=== PATIENT | female | born 1930 | race Caucasian/White ===

== ENCOUNTER 2018-03-08 20:05 | Inpatient (IN) ==
[2018-03-08] MEDS ORDERED: ALBUTEROL/IPRATROPIUM 3 ML NEB RESP TX STA (21:27)
[2018-03-08] MEDS ORDERED: SODIUM CHLORIDE 0.9% 500 ML IV STA (21:27)
[2018-03-08 21:57] LABS: Basophils # 0.1 10*3/uL (0.0-0.2); Basophils % 0.4 % (0.0-0.8); Eosinophils # 0.2 10*3/uL (0.0-0.87); Eosinophils % 1.5 % (0.00-10.9); Hemoglobin 10.9 GM/DL (12.0-16.0); Immature Granulocytes % 0.8 %; Immature Granulocytes Absolute 0.11 #; Lymphocytes # 1.3 10*3/uL (1.4-4.0); Lymphocytes % 9.8 % (21.3-54.2); Mean Corpuscular HGB Conc 32.1 GM/DL (32-36); Mean Corpuscular Hemoglobin 29 PG (27-34); Mean Corpuscular Volume 91.2 FL (87-102); Mean Platelet Volume 11.8 FL (9.6-12.0); Monocytes # 1.1 10*3/uL (0.11-0.8); Monocytes % 8.3 % (1.7-12.7); Neutrophils # 10.6 10*3/uL (1.4-7.4); Neutrophils % 79.2 % (38.7-73.9); Platelet Count 182 T/CUMM (130-400); Red Blood Count 3.73 MC/CUMM (3.8-5.5); White Blood Count 13.4 T/CUMM (4-12)
[2018-03-08 22:10] LABS: PT Patient Result 10.7 SECS; Partial Thromboplastin Time 27.1 SECS (0-40)
[2018-03-08] MEDS ORDERED: cefTRIAXone 1,000 MG in SODIUM CHLORIDE 0.9% 100 ML IV STA (22:16)
[2018-03-08 22:27] LABS: Alanine Aminotransferase 57 U/L (13-56); Albumin 2.9 G/DL (3.4-5.0); Alkaline Phosphatase 139 U/L (45-117); Amylase 268 U/L (25-115); Aspartate Amino Transferase 42 U/L (0-37); Blood Urea Nitrogen 11 MG/DL (7-18); Calcium 9.1 MG/DL (8.5-10.1); Glucose 110 MG/DL (74-106); Osmolality,Calculated 274.7 MOS/KG (273-304); Potassium 3.8 MMOL/L (3.5-5.1); Sodium 138 MMOL/L (136-145); Total Protein 6.4 G/DL (6.4-8.3); Troponin I Only 0.015 NG/ML (0.00-0.045)
[2018-03-08] MEDS ORDERED: cefTRIAXone 1,000 MG VIAL ONE (22:47)
[2018-03-08 23:21] LABS: Apearance,Urine Clear (Clear); Urine Color Yellow (Yellow); Urine Specific Gravity 1.005 (1.001-1.035)
[2018-03-08 23:22] LABS: Bilirubin,Urine Negative (Negative); Blood, Urine Moderate mg/dL (Negative); Glucose,Urine (UA) Negative (Negative); Ictotest,Urine Negative (Negative); Ketones,Urine Negative (Negative); Nitrite,Urine Negative (Negative); Protein,Urine Negative
[2018-03-08 23:23] LABS: Bacteria,Urine Rare /HPF (Few); RBC,Urine 50-100 /HPF (0-4); Squamous Epithelial Cell,Urine Few /HPF (0-10); Urine Urobilinogen 0.2 EU/DL (0.2-1.0); WBC,Urine 30-40 /HPF (0-6)
[2018-03-09] MEDS ORDERED: ONDANSETRON 4 MG/2 ML VIAL IV PRN (01:27)
[2018-03-09] MEDS ORDERED: traMADol 50 MG TABLET PO PRN (01:40)
[2018-03-09] MEDS ORDERED: AZITHROMYCIN 500 MG VIAL IV ONE (01:52)
[2018-03-09] MEDS: SODIUM CHLORIDE 0.9% 1,000 ML IV SCH ×3 (02:06→21:43)
[2018-03-09] MEDS: AZITHROMYCIN INJ 500 MG in SODIUM CHLORIDE 0.9% 250 ML IV SCH (02:59)
[2018-03-09] MEDS: methylPREDNISolone SOD SUC 40 MG/1 ML VIAL IV SCH ×3 (03:33→17:29)
[2018-03-09] MEDS: LEVOTHYROXINE 125 MCG TABLET PO SCH (05:31)
[2018-03-09 06:23] LABS: Basophils % 0.2 % (0.0-0.8); Eosinophils # 0.2 10*3/uL (0.0-0.87); Eosinophils % 1.7 % (0.00-10.9); Hematocrit 30.3 VOL% (35.7-47.0); Hemoglobin 10.1 GM/DL (12.0-16.0); Immature Granulocytes % 1.4 %; Immature Granulocytes Absolute 0.13 #; Lymphocytes # 1.6 10*3/uL (1.4-4.0); Lymphocytes % 17.1 % (21.3-54.2); Mean Corpuscular HGB Conc 33.3 GM/DL (32-36); Mean Corpuscular Hemoglobin 30 PG (27-34); Mean Corpuscular Volume 89.6 FL (87-102); Mean Platelet Volume 12.2 FL (9.6-12.0); Monocytes # 0.4 10*3/uL (0.11-0.8); Monocytes % 4.3 % (1.7-12.7); Neutrophils # 6.8 10*3/uL (1.4-7.4); Neutrophils % 75.3 % (38.7-73.9); Platelet Count 162 T/CUMM (130-400); Red Blood Count 3.38 MC/CUMM (3.8-5.5); White Blood Count 9.1 T/CUMM (4-12)
[2018-03-09 06:56] LABS: Alanine Aminotransferase 46 U/L (13-56); Albumin 2.6 G/DL (3.4-5.0); Alkaline Phosphatase 119 U/L (45-117); Aspartate Amino Transferase 24 U/L (0-37); Bilirubin,Total < 0.39 MG/DL (0.2-1.0); Blood Urea Nitrogen 11 MG/DL (7-18); Calcium 8.2 MG/DL (8.5-10.1); Glucose 103 MG/DL (74-106); Osmolality,Calculated 277.4 MOS/KG (273-304); Potassium 4.1 MMOL/L (3.5-5.1); Sodium 140 MMOL/L (136-145); Total Protein 5.1 G/DL (6.4-8.3)
[2018-03-09] MEDS: ARFORMOTEROL 15 MCG/2 ML NEB RESP TX SCH ×2 (07:17→20:26)
[2018-03-09] MEDS: ALBUTEROL/IPRATROPIUM 3 ML NEB RESP TX SCH ×3 (07:17→20:26)
[2018-03-09] MEDS: CETIRIZINE 10 MG TABLET PO SCH (08:46)
[2018-03-09] MEDS: SELENIUM 200 MCG TABLET PO SCH (08:46)
[2018-03-09] MEDS: METOCLOPRAMIDE 5 MG TABLET PO SCH ×3 (08:46→21:35)
[2018-03-09] MEDS: guaiFENesin 200 MG/10 ML UDCUP PO PRN ×2 (08:46→15:49)
[2018-03-09] MEDS: ASCORBIC ACID 500 MG TABLET PO SCH (08:46)
[2018-03-09] MEDS: CHOLECALCIFEROL 5,000 UNIT TABLET PO SCH ×2 (08:46→21:35)
[2018-03-09] MEDS: IRBESARTAN 150 MG TABLET PO SCH (08:46)
[2018-03-09] MEDS: MAGNESIUM OXIDE 400 MG TABLET PO SCH ×2 (08:47→21:35)
[2018-03-09] MEDS ORDERED: Saccharomyces Boulardii [Probiotic] 250 MG PO SCH (09:00)
[2018-03-09 09:43] LABS: Risk Ratio 3.7; VLDL CHOLESTEROL 18.8 MG/DL
[2018-03-09] MEDS: MONTELUKAST 10 MG TABLET PO SCH (19:35)
[2018-03-09] MEDS: SIMVASTATIN 40 MG TABLET PO SCH (21:35)
[2018-03-09] MEDS: URSODIOL 300 MG CAPSULE PO SCH (21:35)
[2018-03-09] MEDS ORDERED: cefTRIAXone 1,000 MG in SYRINGE 1 EACH IV SCH (22:00)
[2018-03-10] MEDS: ALBUTEROL/IPRATROPIUM 3 ML NEB RESP TX SCH ×4 (01:07→18:58)
[2018-03-10] MEDS: AZITHROMYCIN INJ 500 MG in SODIUM CHLORIDE 0.9% 250 ML IV SCH (02:56)
[2018-03-10] MEDS: methylPREDNISolone SOD SUC 40 MG/1 ML VIAL IV SCH ×3 (02:56→17:54)
[2018-03-10] MEDS: LEVOTHYROXINE 125 MCG TABLET PO SCH (05:13)
[2018-03-10 06:28] LABS: Hematocrit 28.1 VOL% (35.7-47.0); Immature Granulocytes % 1.4 %; Immature Granulocytes Absolute 0.07 #; Lymphocytes # 1.1 10*3/uL (1.4-4.0); Lymphocytes % 22.8 % (21.3-54.2); Mean Corpuscular Hemoglobin 30 PG (27-34); Mean Corpuscular Volume 92.4 FL (87-102); Mean Platelet Volume 11.9 FL (9.6-12.0); Monocytes # 0.3 10*3/uL (0.11-0.8); Monocytes % 5.2 % (1.7-12.7); Neutrophils # 3.4 10*3/uL (1.4-7.4); Neutrophils % 70.6 % (38.7-73.9); Platelet Count 158 T/CUMM (130-400); Red Blood Count 3.04 MC/CUMM (3.8-5.5); Red Cell Distribution Width 14.8 % (9.3-17.3); White Blood Count 4.8 T/CUMM (4-12)
[2018-03-10 07:08] LABS: Calcium 8.2 MG/DL (8.5-10.1); Osmolality,Calculated 284.1 MOS/KG (273-304); Potassium 4.3 MMOL/L (3.5-5.1)
[2018-03-10] MEDS: ARFORMOTEROL 15 MCG/2 ML NEB RESP TX SCH ×2 (07:32→18:58)
[2018-03-10] MEDS: SELENIUM 200 MCG TABLET PO SCH (08:38)
[2018-03-10] MEDS: METOCLOPRAMIDE 5 MG TABLET PO SCH ×3 (08:39→20:08)
[2018-03-10] MEDS: IRBESARTAN 150 MG TABLET PO SCH (08:39)
[2018-03-10] MEDS: CHOLECALCIFEROL 5,000 UNIT TABLET PO SCH ×2 (08:39→20:08)
[2018-03-10] MEDS: ASCORBIC ACID 500 MG TABLET PO SCH (08:40)
[2018-03-10] MEDS: MAGNESIUM OXIDE 400 MG TABLET PO SCH ×2 (08:40→20:09)
[2018-03-10] MEDS: CETIRIZINE 10 MG TABLET PO SCH (08:40)
[2018-03-10] MEDS: URSODIOL 300 MG CAPSULE PO SCH ×2 (08:40→20:08)
[2018-03-10] MEDS: ENOXAPARIN 40 MG/0.4 ML SYRINGE SUBCUT SCH (08:41)
[2018-03-10] MEDS: SODIUM CHLORIDE 0.9% 1,000 ML IV SCH ×3 (08:43→20:17)
[2018-03-10] MEDS: guaiFENesin 200 MG/10 ML UDCUP PO PRN ×2 (09:57→20:08)
[2018-03-10] MEDS ORDERED: AMINOPHYLLINE 125 MG in SODIUM CHLORIDE 0.9% 100 ML IV ONE (10:13)
[2018-03-10] MEDS: AMINOPHYLLINE 250 MG in SODIUM CHLORIDE 0.9% 240 ML IV SCH (15:00)
[2018-03-10] MEDS: MONTELUKAST 10 MG TABLET PO SCH ×2 (17:55→19:03)
[2018-03-10] MEDS: SIMVASTATIN 40 MG TABLET PO SCH (20:08)
[2018-03-10] MEDS: ACETAMINOPHEN 325 MG TABLET PO PRN (20:09)
[2018-03-10] MEDS: POLYETHYLENE GLYCOL POWDER 17 GM PACK PO SCH (20:10)
[2018-03-11] MEDS: ALBUTEROL/IPRATROPIUM 3 ML NEB RESP TX SCH ×4 (00:33→20:21)
[2018-03-11] MEDS: methylPREDNISolone SOD SUC 40 MG/1 ML VIAL IV SCH ×3 (02:09→18:00)
[2018-03-11] MEDS: LEVOTHYROXINE 125 MCG TABLET PO SCH (06:03)
[2018-03-11] MEDS: ARFORMOTEROL 15 MCG/2 ML NEB RESP TX SCH ×2 (06:56→20:22)
[2018-03-11] MEDS ORDERED: ETOMIDATE 20 MG/10 ML VIAL IV ONE (09:00)
[2018-03-11] MEDS ORDERED: PROPOFOL 200 MG/20 ML VIAL IV ONE (09:00)
[2018-03-11] MEDS ORDERED: LIDOCAINE 2% 5 ML VIAL ONE (09:00)
[2018-03-11] MEDS ORDERED: AZITHROMYCIN 250 MG TABLET PO SCH (09:00)
[2018-03-11] MEDS ORDERED: FUROSEMIDE 40 MG/4 ML VIAL IM ONE (09:06)
[2018-03-11 09:08] LABS: Hematocrit 26.9 VOL% (35.7-47.0); Immature Granulocytes % 7.3 %; Immature Granulocytes Absolute 0.54 #; Mean Corpuscular HGB Conc 33.5 GM/DL (32-36); Mean Corpuscular Hemoglobin 30 PG (27-34); Mean Corpuscular Volume 90.6 FL (87-102); Mean Platelet Volume 12.1 FL (9.6-12.0); Monocytes # 0.3 10*3/uL (0.11-0.8); Monocytes % 4.3 % (1.7-12.7); Neutrophils # 5.6 10*3/uL (1.4-7.4); Neutrophils % 75.4 % (38.7-73.9); Platelet Count 182 T/CUMM (130-400); Red Blood Count 2.97 MC/CUMM (3.8-5.5); White Blood Count 7.4 T/CUMM (4-12)
[2018-03-11 09:49] LABS: Anisocytosis 1+; Band Neutrophils 13 % (0-10); Burr Cells Few; Lymphocytes 18 % (20-55); Nucleated Red Blood Cells 1 (0-5); Poikilocytosis 1+; Segmented Neutrophils 68 % (50-85); Total Cells Counted 100
[2018-03-11] MEDS: guaiFENesin 200 MG/10 ML UDCUP PO PRN ×2 (10:05→20:39)
[2018-03-11 10:13] LABS: Platelet Estimate Normal
[2018-03-11] MEDS: SODIUM CHLORIDE 0.9% 1,000 ML IV SCH ×2 (10:28→16:44)
[2018-03-11] MEDS: METOCLOPRAMIDE 5 MG TABLET PO SCH ×3 (10:43→20:39)
[2018-03-11] MEDS: CETIRIZINE 10 MG TABLET PO SCH (10:43)
[2018-03-11] MEDS: URSODIOL 300 MG CAPSULE PO SCH ×2 (10:43→20:39)
[2018-03-11] MEDS: SELENIUM 200 MCG TABLET PO SCH (10:44)
[2018-03-11] MEDS: MAGNESIUM OXIDE 400 MG TABLET PO SCH ×2 (10:44→20:39)
[2018-03-11] MEDS: CHOLECALCIFEROL 5,000 UNIT TABLET PO SCH ×2 (10:44→20:39)
[2018-03-11] MEDS: IRBESARTAN 150 MG TABLET PO SCH (10:44)
[2018-03-11] MEDS: POLYETHYLENE GLYCOL POWDER 17 GM PACK PO SCH ×2 (10:45→20:40)
[2018-03-11] MEDS: ASCORBIC ACID 500 MG TABLET PO SCH (10:46)
[2018-03-11] MEDS: ENOXAPARIN 40 MG/0.4 ML SYRINGE SUBCUT SCH (10:49)
[2018-03-11] MEDS: AMINOPHYLLINE 250 MG in SODIUM CHLORIDE 0.9% 240 ML IV SCH ×2 (14:27→20:43)
[2018-03-11] MEDS: MONTELUKAST 10 MG TABLET PO SCH (18:00)
[2018-03-11] MEDS: SIMVASTATIN 40 MG TABLET PO SCH (20:40)
[2018-03-11] MEDS: ACETAMINOPHEN 325 MG TABLET PO PRN (20:42)
[2018-03-12] MEDS: ALBUTEROL/IPRATROPIUM 3 ML NEB RESP TX SCH ×3 (00:42→13:07)
[2018-03-12] MEDS: methylPREDNISolone SOD SUC 40 MG/1 ML VIAL IV SCH ×2 (01:12→09:49)
[2018-03-12] MEDS: LEVOTHYROXINE 125 MCG TABLET PO SCH (05:54)
[2018-03-12 06:36] LABS: Basophils % 0.2 % (0.0-0.8); Hematocrit 28.8 VOL% (35.7-47.0); Hemoglobin 9.5 GM/DL (12.0-16.0); Immature Granulocytes % 8.2 %; Immature Granulocytes Absolute 0.53 #; Lymphocytes # 0.9 10*3/uL (1.4-4.0); Lymphocytes % 13.1 % (21.3-54.2); Mean Corpuscular Hemoglobin 29 PG (27-34); Mean Corpuscular Volume 88.9 FL (87-102); Mean Platelet Volume 12.3 FL (9.6-12.0); Monocytes # 0.3 10*3/uL (0.11-0.8); Monocytes % 4.3 % (1.7-12.7); Neutrophils # 4.8 10*3/uL (1.4-7.4); Neutrophils % 74.2 % (38.7-73.9); Platelet Count 125 T/CUMM (130-400); Red Blood Count 3.24 MC/CUMM (3.8-5.5); Red Cell Distribution Width 14.6 % (9.3-17.3); White Blood Count 6.5 T/CUMM (4-12)
[2018-03-12 06:58] LABS: Band Neutrophils 5 % (0-10); Hypochromasia 1+; Lymphocytes 11 % (20-55); Nucleated Red Blood Cells 2 (0-5); Platelet Estimate Normal; Segmented Neutrophils 81 % (50-85); Total Cells Counted 100
[2018-03-12 06:59] LABS: Giant Platelets Few; Microcytosis Slight; Ovalocytes Slight
[2018-03-12 07:10] LABS: Calcium 8.8 MG/DL (8.5-10.1); Osmolality,Calculated 281.5 MOS/KG (273-304); Potassium 3.6 MMOL/L (3.5-5.1)
[2018-03-12] MEDS: ARFORMOTEROL 15 MCG/2 ML NEB RESP TX SCH (08:00)
[2018-03-12] MEDS: CHOLECALCIFEROL 5,000 UNIT TABLET PO SCH (08:51)
[2018-03-12] MEDS: URSODIOL 300 MG CAPSULE PO SCH (08:51)
[2018-03-12] MEDS: IRBESARTAN 150 MG TABLET PO SCH (08:51)
[2018-03-12] MEDS: POLYETHYLENE GLYCOL POWDER 17 GM PACK PO SCH (08:52)
[2018-03-12] MEDS: CETIRIZINE 10 MG TABLET PO SCH (08:52)
[2018-03-12] MEDS: METOCLOPRAMIDE 5 MG TABLET PO SCH ×2 (08:52→15:00)
[2018-03-12] MEDS: ASCORBIC ACID 500 MG TABLET PO SCH (08:52)
[2018-03-12] MEDS: SELENIUM 200 MCG TABLET PO SCH (08:52)
[2018-03-12] MEDS: MAGNESIUM OXIDE 400 MG TABLET PO SCH (08:52)
[2018-03-12 10:49] VITALS: BP 150/76
[2018-03-12] MEDS ORDERED: THEOPHYLLINE ER (24 HR) 200 MG CAPSULE PO SCH (11:48)
[2018-03-12] MEDS ORDERED: POTASSIUM CHLORIDE 10 MEQ TABLET PO SCH (12:00)
[2018-03-12] MEDS ORDERED: metOLazone 2.5 MG TABLET PO SCH (12:00)
[2018-03-12] MEDS ORDERED: CIPROFLOXACIN 250 MG TABLET PO SCH (14:00)
[2018-03-12 15:43] LABS: Apearance,Urine CLEAR (Clear); Bilirubin,Urine Negative (Negative); Blood, Urine Moderate mg/dL (Negative); Glucose,Urine (UA) 50 mg/dL (Negative); Ketones,Urine Negative (Negative); Mucus,Urine Occasional /LPF (Occasional); Nitrite,Urine Negative (Negative); Protein,Urine Negative; RBC,Urine 164 /HPF (0-4); Squamous Epithelial Cell,Urine Occasional /HPF (0-10); Urine Color Straw (Yellow); Urine Specific Gravity 1.009 (1.001-1.035); Urine Urobilinogen < 2.0 EU/DL (0.2-1.0); WBC,Urine 20 /HPF (0-6)
== END 2018-03-12 16:51 | disposition home or self-care (01) | DRG 438 ==
LOC: N.ED 20:05 → N.EDINP 03-09 01:27 → SUATTDRO 03-09 01:27 → N.5E 03-09 02:37
PROVIDERS: ADMIT Internal Medicine; ATTEND Internal Medicine Geriatric Medicine

== ENCOUNTER 2018-06-13 08:41 | Inpatient (IN) ==
[2018-06-13 10:14] LABS: Basophils % 0.2 % (0.0-0.8); Eosinophils # 0.2 10*3/uL (0.0-0.87); Eosinophils % 1.4 % (0.00-10.9); Hematocrit 30.9 VOL% (35.7-47.0); Hemoglobin 10.3 GM/DL (12.0-16.0); Immature Granulocytes Absolute 0.16 #; Lymphocytes % 12.9 % (21.3-54.2); Mean Corpuscular HGB Conc 33.3 GM/DL (32-36); Mean Corpuscular Hemoglobin 31 PG (27-34); Mean Corpuscular Volume 91.4 FL (87-102); Mean Platelet Volume 10.8 FL (9.6-12.0); Monocytes # 1.2 10*3/uL (0.11-0.8); Monocytes % 7.5 % (1.7-12.7); Platelet Count 187 T/CUMM (130-400); Red Blood Count 3.38 MC/CUMM (3.8-5.5); Red Cell Distribution Width 15.3 % (9.3-17.3); White Blood Count 15.6 T/CUMM (4-12)
[2018-06-13 10:26] LABS: Albumin 3.1 G/DL (3.4-5.0); Bilirubin,Total 0.4 MG/DL (0.2-1.0); Calcium 8.7 MG/DL (8.5-10.1); Osmolality,Calculated 270.5 MOS/KG (273-304); Potassium 3.2 MMOL/L (3.5-5.1); Total Protein 5.9 G/DL (6.4-8.3)
[2018-06-13 10:32] LABS: Apearance,Urine CLOUDY (Clear); Bacteria,Urine Many /HPF (Few); Bilirubin,Urine Negative (Negative); Blood, Urine Small mg/dL (Negative); Glucose,Urine (UA) Negative (Negative); Ketones,Urine Negative (Negative); Nitrite,Urine Negative (Negative); Protein,Urine 100 MG/DL; RBC,Urine 40 /HPF (0-4); Squamous Epithelial Cell,Urine Occasional /HPF (0-10); Urine Color Yellow (Yellow); Urine Specific Gravity 1.009 (1.001-1.035); Urine Urobilinogen < 2.0 EU/DL (0.2-1.0); WBC,Urine 1781 /HPF (0-6)
[2018-06-13] MEDS ORDERED: cefTRIAXone 1,000 MG in SODIUM CHLORIDE 0.9% 100 ML IV STA (10:33)
[2018-06-13 10:35] LABS: Lactic Acid 2.8 MMOL/L (0.4-2.0)
[2018-06-13] MEDS ORDERED: LACTATED RINGERS 1,000 ML IV ONE (10:35)
[2018-06-13] MEDS ORDERED: SODIUM CHLORIDE 0.9% 1,950 ML IV ONE (11:13)
[2018-06-13] MEDS ORDERED: traMADol 50 MG TABLET PO PRN (11:14)
[2018-06-13] MEDS ORDERED: guaiFENesin 200 MG/10 ML UDCUP PO PRN (11:14)
[2018-06-13] MEDS: LEVOFLOXACIN INJ 500 MG in PREMIX 1 EACH IV SCH (14:01)
[2018-06-13] MEDS: MEROPENEM 1,000 MG in SYRINGE 1 EACH IV SCH (14:01)
[2018-06-13] MEDS: ALBUTEROL 2.5 MG/3 ML NEB RESP TX SCH ×2 (14:23→19:21)
[2018-06-13] MEDS: POTASSIUM CHLORIDE 20 MEQ TABLET PO SCH (15:51)
[2018-06-13] MEDS: METOCLOPRAMIDE 5 MG TABLET PO SCH ×2 (15:51→20:15)
[2018-06-13] MEDS: ACETAMINOPHEN 325 MG TABLET PO PRN (16:50)
[2018-06-13] MEDS: MONTELUKAST 10 MG TABLET PO SCH (19:08)
[2018-06-13] MEDS: ARFORMOTEROL 15 MCG/2 ML NEB RESP TX SCH (19:21)
[2018-06-13] MEDS: SIMVASTATIN 40 MG TABLET PO SCH (20:15)
[2018-06-13] MEDS: CHOLECALCIFEROL 5,000 UNIT TABLET PO SCH (20:15)
[2018-06-13] MEDS: MAGNESIUM OXIDE 400 MG TABLET PO SCH (20:15)
[2018-06-13] MEDS: predniSONE 5 MG TABLET PO SCH (20:15)
[2018-06-13] MEDS: BUDESONIDE 0.25 MG/2 ML NEB RESP TX SCH (21:00)
[2018-06-13] MEDS: IPRATROPIUM 500 MCG/2.5 ML NEB RESP TX SCH (21:00)
[2018-06-14] MEDS: MEROPENEM 1,000 MG in SYRINGE 1 EACH IV SCH ×2 (00:48→13:13)
[2018-06-14 07:16] LABS: Calcium 8.6 MG/DL (8.5-10.1); Potassium 3.7 MMOL/L (3.5-5.1)
[2018-06-14 07:26] LABS: Basophils % 0.1 % (0.0-0.8); Eosinophils % 0.2 % (0.00-10.9); Hematocrit 27.6 VOL% (35.7-47.0); Hemoglobin 9.2 GM/DL (12.0-16.0); Immature Granulocytes % 0.9 %; Immature Granulocytes Absolute 0.08 #; Lymphocytes # 1.9 10*3/uL (1.4-4.0); Mean Corpuscular HGB Conc 33.3 GM/DL (32-36); Mean Corpuscular Hemoglobin 30 PG (27-34); Mean Corpuscular Volume 90.5 FL (87-102); Mean Platelet Volume 10.8 FL (9.6-12.0); Monocytes # 0.5 10*3/uL (0.11-0.8); Monocytes % 5.3 % (1.7-12.7); Neutrophils # 6.2 10*3/uL (1.4-7.4); Neutrophils % 71.5 % (38.7-73.9); Platelet Count 165 T/CUMM (130-400); Red Blood Count 3.05 MC/CUMM (3.8-5.5); Red Cell Distribution Width 15.1 % (9.3-17.3); White Blood Count 8.7 T/CUMM (4-12)
[2018-06-14 07:38] LABS: Albumin 2.5 G/DL (3.4-5.0); Bilirubin,Total 0.5 MG/DL (0.2-1.0); Calcium 8.6 MG/DL (8.5-10.1); Potassium 3.7 MMOL/L (3.5-5.1); Total Protein 5.8 G/DL (6.4-8.3)
[2018-06-14] MEDS: ARFORMOTEROL 15 MCG/2 ML NEB RESP TX SCH ×2 (07:46→19:22)
[2018-06-14] MEDS: ALBUTEROL 2.5 MG/3 ML NEB RESP TX SCH ×3 (07:47→19:22)
[2018-06-14] MEDS: IPRATROPIUM 500 MCG/2.5 ML NEB RESP TX SCH ×2 (07:48→19:22)
[2018-06-14] MEDS: BUDESONIDE 0.25 MG/2 ML NEB RESP TX SCH ×2 (07:48→19:22)
[2018-06-14] MEDS: CETIRIZINE 10 MG TABLET PO SCH (08:24)
[2018-06-14] MEDS: PANTOPRAZOLE 40 MG TABLET PO SCH (08:24)
[2018-06-14] MEDS: POTASSIUM CHLORIDE 20 MEQ TABLET PO SCH (08:24)
[2018-06-14] MEDS: ASCORBIC ACID 500 MG TABLET PO SCH (08:24)
[2018-06-14] MEDS: LEVOTHYROXINE 125 MCG TABLET PO SCH (08:24)
[2018-06-14] MEDS: THEOPHYLLINE ER (24 HR) 200 MG CAPSULE PO SCH (08:25)
[2018-06-14] MEDS: METOCLOPRAMIDE 5 MG TABLET PO SCH ×3 (08:25→21:57)
[2018-06-14] MEDS: SELENIUM 200 MCG TABLET PO SCH (08:25)
[2018-06-14] MEDS: MAGNESIUM OXIDE 400 MG TABLET PO SCH ×2 (08:25→21:57)
[2018-06-14] MEDS: IRBESARTAN 150 MG TABLET PO SCH (08:25)
[2018-06-14] MEDS: CHOLECALCIFEROL 5,000 UNIT TABLET PO SCH ×2 (08:25→21:58)
[2018-06-14] MEDS: metOLazone 2.5 MG TABLET PO SCH (08:25)
[2018-06-14] MEDS ORDERED: Saccharomyces Boulardii [Probiotic] 250 MG PO SCH (09:00)
[2018-06-14] MEDS: SODIUM CHLORIDE 0.45% 1,000 ML IV SCH (12:59)
[2018-06-14] MEDS: LEVOFLOXACIN INJ 500 MG in PREMIX 1 EACH IV SCH (13:13)
[2018-06-14] MEDS: MONTELUKAST 10 MG TABLET PO SCH (18:48)
[2018-06-14] MEDS: ACETAMINOPHEN 325 MG TABLET PO PRN (21:57)
[2018-06-14] MEDS: SIMVASTATIN 40 MG TABLET PO SCH (21:57)
[2018-06-14] MEDS: predniSONE 5 MG TABLET PO SCH (21:57)
[2018-06-15] MEDS: MEROPENEM 1,000 MG in SYRINGE 1 EACH IV SCH ×2 (01:20→13:41)
[2018-06-15] MEDS: LEVOTHYROXINE 125 MCG TABLET PO SCH (06:42)
[2018-06-15 06:51] LABS: Basophils % 0.1 % (0.0-0.8); Eosinophils # 0.1 10*3/uL (0.0-0.87); Eosinophils % 0.8 % (0.00-10.9); Hematocrit 26.5 VOL% (35.7-47.0); Hemoglobin 8.7 GM/DL (12.0-16.0); Immature Granulocytes % 1.4 %; Lymphocytes # 1.7 10*3/uL (1.4-4.0); Lymphocytes % 23.2 % (21.3-54.2); Mean Corpuscular HGB Conc 32.8 GM/DL (32-36); Mean Corpuscular Hemoglobin 30 PG (27-34); Mean Corpuscular Volume 91.1 FL (87-102); Mean Platelet Volume 10.4 FL (9.6-12.0); Monocytes # 0.5 10*3/uL (0.11-0.8); Monocytes % 7.2 % (1.7-12.7); Neutrophils # 4.9 10*3/uL (1.4-7.4); Neutrophils % 67.3 % (38.7-73.9); Platelet Count 150 T/CUMM (130-400); Red Blood Count 2.91 MC/CUMM (3.8-5.5); White Blood Count 7.2 T/CUMM (4-12)
[2018-06-15 07:17] LABS: Albumin 2.3 G/DL (3.4-5.0); Bilirubin,Total 0.5 MG/DL (0.2-1.0); Osmolality,Calculated 274.1 MOS/KG (273-304); Potassium 4.4 MMOL/L (3.5-5.1); Total Protein 5.6 G/DL (6.4-8.3)
[2018-06-15] MEDS: ARFORMOTEROL 15 MCG/2 ML NEB RESP TX SCH ×2 (07:41→19:20)
[2018-06-15] MEDS: IPRATROPIUM 500 MCG/2.5 ML NEB RESP TX SCH ×2 (07:41→19:08)
[2018-06-15] MEDS: ALBUTEROL 2.5 MG/3 ML NEB RESP TX SCH ×3 (07:41→19:07)
[2018-06-15] MEDS: BUDESONIDE 0.25 MG/2 ML NEB RESP TX SCH ×2 (07:42→19:08)
[2018-06-15] MEDS: THEOPHYLLINE ER (24 HR) 200 MG CAPSULE PO SCH (09:00)
[2018-06-15] MEDS: SODIUM CHLORIDE 0.45% 1,000 ML IV SCH (09:56)
[2018-06-15] MEDS: ASCORBIC ACID 500 MG TABLET PO SCH (10:16)
[2018-06-15] MEDS: SELENIUM 200 MCG TABLET PO SCH (10:16)
[2018-06-15] MEDS: POTASSIUM CHLORIDE 20 MEQ TABLET PO SCH (10:17)
[2018-06-15] MEDS: CETIRIZINE 10 MG TABLET PO SCH (10:17)
[2018-06-15] MEDS: CHOLECALCIFEROL 5,000 UNIT TABLET PO SCH ×2 (10:18→20:37)
[2018-06-15] MEDS: MAGNESIUM OXIDE 400 MG TABLET PO SCH ×2 (10:18→20:37)
[2018-06-15] MEDS: PANTOPRAZOLE 40 MG TABLET PO SCH (10:18)
[2018-06-15] MEDS: METOCLOPRAMIDE 5 MG TABLET PO SCH ×3 (10:18→20:37)
[2018-06-15] MEDS: IRBESARTAN 150 MG TABLET PO SCH (11:24)
[2018-06-15] MEDS: metOLazone 2.5 MG TABLET PO SCH (11:24)
[2018-06-15] MEDS ORDERED: VANCOMYCIN INJ 1,000 MG in SODIUM CHLORIDE 0.9% 250 ML IV SCH (14:00)
[2018-06-15] MEDS ORDERED: SODIUM CHLORIDE 0.9% 250 ML IV ONE (15:03)
[2018-06-15] MEDS ORDERED: SODIUM PHOSPHATE ENEMA 133 ML BOTTLE RECTAL ONE (15:26)
[2018-06-15] MEDS: LEVOFLOXACIN INJ 500 MG in PREMIX 1 EACH IV SCH (15:41)
[2018-06-15] MEDS ORDERED: BISACODYL 5 MG TABLET PO ONE (17:19)
[2018-06-15] MEDS ORDERED: MAGNESIUM HYDROXIDE SUSP 30 ML UDCUP PO ONE (17:19)
[2018-06-15] MEDS: predniSONE 5 MG TABLET PO SCH (20:37)
[2018-06-15] MEDS: MONTELUKAST 10 MG TABLET PO SCH (20:37)
[2018-06-15] MEDS: SIMVASTATIN 40 MG TABLET PO SCH (20:37)
[2018-06-15] MEDS: ACETAMINOPHEN 325 MG TABLET PO PRN (21:36)
[2018-06-16] MEDS: MEROPENEM 1,000 MG in SYRINGE 1 EACH IV SCH (00:39)
[2018-06-16 06:28] LABS: Basophils % 0.2 % (0.0-0.8); Eosinophils # 0.2 10*3/uL (0.0-0.87); Eosinophils % 1.8 % (0.00-10.9); Hematocrit 26.9 VOL% (35.7-47.0); Hemoglobin 8.8 GM/DL (12.0-16.0); Immature Granulocytes % 1.1 %; Immature Granulocytes Absolute 0.09 #; Lymphocytes # 1.6 10*3/uL (1.4-4.0); Lymphocytes % 19.3 % (21.3-54.2); Mean Corpuscular HGB Conc 32.7 GM/DL (32-36); Mean Corpuscular Hemoglobin 30 PG (27-34); Mean Corpuscular Volume 92.1 FL (87-102); Mean Platelet Volume 10.3 FL (9.6-12.0); Monocytes # 0.9 10*3/uL (0.11-0.8); Neutrophils # 5.4 10*3/uL (1.4-7.4); Neutrophils % 66.6 % (38.7-73.9); Platelet Count 152 T/CUMM (130-400); Red Blood Count 2.92 MC/CUMM (3.8-5.5); Red Cell Distribution Width 15.1 % (9.3-17.3); White Blood Count 8.2 T/CUMM (4-12)
[2018-06-16] MEDS: LEVOTHYROXINE 125 MCG TABLET PO SCH (06:35)
[2018-06-16 06:58] LABS: Albumin 2.4 G/DL (3.4-5.0); Bilirubin,Total 0.5 MG/DL (0.2-1.0); Calcium 8.7 MG/DL (8.5-10.1); Osmolality,Calculated 274.8 MOS/KG (273-304); Potassium 4.7 MMOL/L (3.5-5.1); Total Protein 5.6 G/DL (6.4-8.3)
[2018-06-16] MEDS: ALBUTEROL 2.5 MG/3 ML NEB RESP TX SCH ×3 (07:26→19:07)
[2018-06-16] MEDS: BUDESONIDE 0.25 MG/2 ML NEB RESP TX SCH ×2 (07:27→19:07)
[2018-06-16] MEDS: ARFORMOTEROL 15 MCG/2 ML NEB RESP TX SCH ×2 (07:27→19:07)
[2018-06-16] MEDS: IPRATROPIUM 500 MCG/2.5 ML NEB RESP TX SCH ×2 (07:27→19:07)
[2018-06-16] MEDS: SODIUM CHLORIDE 0.45% 1,000 ML IV SCH (07:57)
[2018-06-16] MEDS: THEOPHYLLINE ER (24 HR) 200 MG CAPSULE PO SCH (08:00)
[2018-06-16] MEDS: CETIRIZINE 10 MG TABLET PO SCH (09:04)
[2018-06-16] MEDS: MAGNESIUM OXIDE 400 MG TABLET PO SCH ×2 (09:05→20:35)
[2018-06-16] MEDS: SELENIUM 200 MCG TABLET PO SCH (09:05)
[2018-06-16] MEDS: PANTOPRAZOLE 40 MG TABLET PO SCH (09:05)
[2018-06-16] MEDS: POTASSIUM CHLORIDE 20 MEQ TABLET PO SCH (09:05)
[2018-06-16] MEDS: CHOLECALCIFEROL 5,000 UNIT TABLET PO SCH ×2 (09:05→20:36)
[2018-06-16] MEDS: ASCORBIC ACID 500 MG TABLET PO SCH (09:05)
[2018-06-16] MEDS: METOCLOPRAMIDE 5 MG TABLET PO SCH ×3 (09:05→20:35)
[2018-06-16] MEDS: LINEZOLID INJ 600 MG in PREMIX 1 EACH IV SCH ×2 (11:57→22:00)
[2018-06-16] MEDS: SIMVASTATIN 40 MG TABLET PO SCH (20:35)
[2018-06-16] MEDS: MONTELUKAST 10 MG TABLET PO SCH (20:36)
[2018-06-16] MEDS: predniSONE 5 MG TABLET PO SCH (20:36)
[2018-06-16] MEDS: ACETAMINOPHEN 325 MG TABLET PO PRN (20:39)
[2018-06-17] MEDS: LEVOTHYROXINE 125 MCG TABLET PO SCH (06:17)
[2018-06-17 06:52] LABS: Basophils % 0.2 % (0.0-0.8); Eosinophils # 0.1 10*3/uL (0.0-0.87); Eosinophils % 1.2 % (0.00-10.9); Hematocrit 26.3 VOL% (35.7-47.0); Hemoglobin 8.6 GM/DL (12.0-16.0); Immature Granulocytes % 1.7 %; Immature Granulocytes Absolute 0.14 #; Lymphocytes # 2.3 10*3/uL (1.4-4.0); Lymphocytes % 27.1 % (21.3-54.2); Mean Corpuscular HGB Conc 32.7 GM/DL (32-36); Mean Corpuscular Hemoglobin 30 PG (27-34); Mean Corpuscular Volume 90.1 FL (87-102); Mean Platelet Volume 10.2 FL (9.6-12.0); Monocytes # 0.6 10*3/uL (0.11-0.8); Monocytes % 6.9 % (1.7-12.7); Neutrophils # 5.3 10*3/uL (1.4-7.4); Neutrophils % 62.9 % (38.7-73.9); Platelet Count 167 T/CUMM (130-400); Red Blood Count 2.92 MC/CUMM (3.8-5.5); White Blood Count 8.5 T/CUMM (4-12)
[2018-06-17 07:14] LABS: Albumin 2.5 G/DL (3.4-5.0); Bilirubin,Total 0.6 MG/DL (0.2-1.0); Calcium 8.7 MG/DL (8.5-10.1); Potassium 4.8 MMOL/L (3.5-5.1); Total Protein 5.6 G/DL (6.4-8.3)
[2018-06-17] MEDS: BUDESONIDE 0.25 MG/2 ML NEB RESP TX SCH ×2 (07:45→19:12)
[2018-06-17] MEDS: ARFORMOTEROL 15 MCG/2 ML NEB RESP TX SCH ×2 (07:45→19:12)
[2018-06-17] MEDS: IPRATROPIUM 500 MCG/2.5 ML NEB RESP TX SCH ×2 (07:45→19:12)
[2018-06-17] MEDS: ALBUTEROL 2.5 MG/3 ML NEB RESP TX SCH ×3 (07:46→19:12)
[2018-06-17] MEDS: CHOLECALCIFEROL 5,000 UNIT TABLET PO SCH ×2 (10:05→22:02)
[2018-06-17] MEDS: POTASSIUM CHLORIDE 20 MEQ TABLET PO SCH (10:05)
[2018-06-17] MEDS: SELENIUM 200 MCG TABLET PO SCH (10:05)
[2018-06-17] MEDS: THEOPHYLLINE ER (24 HR) 200 MG CAPSULE PO SCH (10:05)
[2018-06-17] MEDS: METOCLOPRAMIDE 5 MG TABLET PO SCH ×3 (10:05→22:02)
[2018-06-17] MEDS: PANTOPRAZOLE 40 MG TABLET PO SCH (10:06)
[2018-06-17] MEDS: CETIRIZINE 10 MG TABLET PO SCH (10:06)
[2018-06-17] MEDS: LINEZOLID INJ 600 MG in PREMIX 1 EACH IV SCH ×2 (10:06→21:59)
[2018-06-17] MEDS: MAGNESIUM OXIDE 400 MG TABLET PO SCH ×3 (10:06→22:02)
[2018-06-17] MEDS: ASCORBIC ACID 500 MG TABLET PO SCH (10:06)
[2018-06-17] MEDS: SODIUM CHLORIDE 0.45% 1,000 ML IV SCH (16:18)
[2018-06-17] MEDS: MONTELUKAST 10 MG TABLET PO SCH (18:48)
[2018-06-17] MEDS: SIMVASTATIN 40 MG TABLET PO SCH (22:02)
[2018-06-17] MEDS: predniSONE 5 MG TABLET PO SCH (22:02)
[2018-06-17] MEDS: ACETAMINOPHEN 325 MG TABLET PO PRN (22:06)
[2018-06-18] MEDS ORDERED: LEVOTHYROXINE 125 MCG TABLET PO SCH (06:00)
[2018-06-18 06:39] LABS: Basophils % 0.1 % (0.0-0.8); Eosinophils # 0.1 10*3/uL (0.0-0.87); Hematocrit 27.6 VOL% (35.7-47.0); Hemoglobin 9.1 GM/DL (12.0-16.0); Immature Granulocytes % 1.8 %; Immature Granulocytes Absolute 0.18 #; Lymphocytes # 2.5 10*3/uL (1.4-4.0); Mean Corpuscular Hemoglobin 30 PG (27-34); Mean Corpuscular Volume 89.9 FL (87-102); Mean Platelet Volume 10.2 FL (9.6-12.0); Monocytes # 0.8 10*3/uL (0.11-0.8); Neutrophils # 6.3 10*3/uL (1.4-7.4); Neutrophils % 64.1 % (38.7-73.9); Platelet Count 170 T/CUMM (130-400); Red Blood Count 3.07 MC/CUMM (3.8-5.5); Red Cell Distribution Width 14.9 % (9.3-17.3); White Blood Count 9.9 T/CUMM (4-12)
[2018-06-18 07:11] LABS: Calcium 9.2 MG/DL (8.5-10.1); Osmolality,Calculated 271.1 MOS/KG (273-304); Potassium 4.7 MMOL/L (3.5-5.1)
[2018-06-18 07:14] LABS: Albumin 2.7 G/DL (3.4-5.0); Bilirubin,Total 0.6 MG/DL (0.2-1.0); Calcium 8.8 MG/DL (8.5-10.1); Osmolality,Calculated 267.2 MOS/KG (273-304); Potassium 4.6 MMOL/L (3.5-5.1); Total Protein 5.7 G/DL (6.4-8.3)
[2018-06-18] MEDS: ALBUTEROL 2.5 MG/3 ML NEB RESP TX SCH ×3 (08:05→19:43)
[2018-06-18] MEDS: IPRATROPIUM 500 MCG/2.5 ML NEB RESP TX SCH ×2 (08:06→19:43)
[2018-06-18] MEDS: ARFORMOTEROL 15 MCG/2 ML NEB RESP TX SCH ×2 (08:06→23:16)
[2018-06-18] MEDS: BUDESONIDE 0.25 MG/2 ML NEB RESP TX SCH ×2 (08:06→19:43)
[2018-06-18] MEDS: METOCLOPRAMIDE 5 MG TABLET PO SCH ×3 (10:34→21:07)
[2018-06-18] MEDS: ASCORBIC ACID 500 MG TABLET PO SCH (10:35)
[2018-06-18] MEDS: CHOLECALCIFEROL 5,000 UNIT TABLET PO SCH ×2 (10:35→21:07)
[2018-06-18] MEDS: PANTOPRAZOLE 40 MG TABLET PO SCH (10:35)
[2018-06-18] MEDS: POTASSIUM CHLORIDE 20 MEQ TABLET PO SCH (10:35)
[2018-06-18] MEDS: SELENIUM 200 MCG TABLET PO SCH (10:35)
[2018-06-18] MEDS: MAGNESIUM OXIDE 400 MG TABLET PO SCH ×3 (10:35→21:07)
[2018-06-18] MEDS: THEOPHYLLINE ER (24 HR) 200 MG CAPSULE PO SCH (10:35)
[2018-06-18] MEDS: LINEZOLID INJ 600 MG in PREMIX 1 EACH IV SCH (10:36)
[2018-06-18] MEDS: CETIRIZINE 10 MG TABLET PO SCH (10:36)
[2018-06-18] MEDS: SODIUM CHLORIDE 0.45% 1,000 ML IV SCH (14:42)
[2018-06-18] MEDS: MONTELUKAST 10 MG TABLET PO SCH (18:45)
[2018-06-18] MEDS: LINEZOLID 600 MG TABLET PO SCH (21:07)
[2018-06-18] MEDS: SIMVASTATIN 40 MG TABLET PO SCH (21:07)
[2018-06-18] MEDS: predniSONE 5 MG TABLET PO SCH (21:07)
[2018-06-18] MEDS: ACETAMINOPHEN 325 MG TABLET PO PRN (21:07)
[2018-06-19] MEDS: SODIUM CHLORIDE 0.45% 1,000 ML IV SCH (04:36)
[2018-06-19] MEDS ORDERED: LEVOTHYROXINE 100 MCG TABLET PO SCH (06:30)
[2018-06-19 07:07] LABS: Basophils % 0.2 % (0.0-0.8); Eosinophils # 0.1 10*3/uL (0.0-0.87); Eosinophils % 0.6 % (0.00-10.9); Hematocrit 28.1 VOL% (35.7-47.0); Hemoglobin 9.3 GM/DL (12.0-16.0); Lymphocytes # 3.2 10*3/uL (1.4-4.0); Lymphocytes % 32.9 % (21.3-54.2); Mean Corpuscular HGB Conc 33.1 GM/DL (32-36); Mean Corpuscular Hemoglobin 30 PG (27-34); Mean Corpuscular Volume 90.6 FL (87-102); Mean Platelet Volume 10.5 FL (9.6-12.0); Monocytes # 0.7 10*3/uL (0.11-0.8); Monocytes % 6.8 % (1.7-12.7); Neutrophils # 5.6 10*3/uL (1.4-7.4); Neutrophils % 57.5 % (38.7-73.9); Platelet Count 163 T/CUMM (130-400); White Blood Count 9.8 T/CUMM (4-12)
[2018-06-19] MEDS: ALBUTEROL 2.5 MG/3 ML NEB RESP TX SCH (07:09)
[2018-06-19] MEDS: IPRATROPIUM 500 MCG/2.5 ML NEB RESP TX SCH (07:09)
[2018-06-19] MEDS: ARFORMOTEROL 15 MCG/2 ML NEB RESP TX SCH (07:09)
[2018-06-19] MEDS: BUDESONIDE 0.25 MG/2 ML NEB RESP TX SCH (07:09)
[2018-06-19 07:44] LABS: Calcium 8.9 MG/DL (8.5-10.1); Osmolality,Calculated 271.1 MOS/KG (273-304); Potassium 4.6 MMOL/L (3.5-5.1)
[2018-06-19] MEDS: POTASSIUM CHLORIDE 20 MEQ TABLET PO SCH (09:39)
[2018-06-19] MEDS: MAGNESIUM OXIDE 400 MG TABLET PO SCH (09:39)
[2018-06-19] MEDS: ASCORBIC ACID 500 MG TABLET PO SCH (09:39)
[2018-06-19] MEDS: CHOLECALCIFEROL 5,000 UNIT TABLET PO SCH (09:39)
[2018-06-19] MEDS: LINEZOLID 600 MG TABLET PO SCH (09:39)
[2018-06-19] MEDS: SELENIUM 200 MCG TABLET PO SCH (09:39)
[2018-06-19] MEDS: CETIRIZINE 10 MG TABLET PO SCH (09:39)
[2018-06-19] MEDS: METOCLOPRAMIDE 5 MG TABLET PO SCH (09:40)
[2018-06-19] MEDS: PANTOPRAZOLE 40 MG TABLET PO SCH (09:40)
[2018-06-19] MEDS: THEOPHYLLINE ER (24 HR) 200 MG CAPSULE PO SCH (09:40)
[2018-06-19 14:26] VITALS: BP 128/58
== END 2018-06-19 15:50 | disposition home health service (06) | DRG 689 ==
LOC: N.ED 08:41 → SUATTDRO 11:27 → N.EDINP 11:42 → N.5E 12:39
PROVIDERS: ATTEND Internal Medicine

== ENCOUNTER 2018-07-22 20:04 | Inpatient (IN) ==
[2018-07-22 21:13] LABS: Basophils % 0.2 % (0.0-0.8); Eosinophils # 0.1 10*3/uL (0.0-0.87); Eosinophils % 0.8 % (0.00-10.9); Hematocrit 29.6 VOL% (35.7-47.0); Hemoglobin 9.7 GM/DL (12.0-16.0); Immature Granulocytes Absolute 0.09 #; Lymphocytes # 3.9 10*3/uL (1.4-4.0); Lymphocytes % 45.3 % (21.3-54.2); Mean Corpuscular HGB Conc 32.8 GM/DL (32-36); Mean Corpuscular Hemoglobin 30 PG (27-34); Mean Corpuscular Volume 91.6 FL (87-102); Mean Platelet Volume 10.6 FL (9.6-12.0); Monocytes # 0.9 10*3/uL (0.11-0.8); Monocytes % 9.9 % (1.7-12.7); NRBC # 0.02 10*3/uL; Neutrophils # 3.7 10*3/uL (1.4-7.4); Neutrophils % 42.8 % (38.7-73.9); Platelet Count 146 T/CUMM (130-400); Red Blood Count 3.23 MC/CUMM (3.8-5.5); Red Cell Distribution Width 17.4 % (9.3-17.3); White Blood Count 8.7 T/CUMM (4-12)
[2018-07-22 21:21] LABS: PT Patient Result 10.3 SECS; Partial Thromboplastin Time 26.2 SECS (0-40)
[2018-07-22 21:33] LABS: Albumin 3.5 G/DL (3.4-5.0); Bilirubin,Total 0.4 MG/DL (0.2-1.0); Osmolality,Calculated 260.9 MOS/KG (273-304); Potassium 4.3 MMOL/L (3.5-5.1); Total Protein 6.6 G/DL (6.4-8.3)
[2018-07-22] MEDS ORDERED: PANTOPRAZOLE 40 MG VIAL IV STA (21:38)
[2018-07-22] MEDS ORDERED: methylPREDNISolone SOD SUC 125 MG/2 ML VIAL IV STA (21:38)
[2018-07-22] MEDS ORDERED: ALBUTEROL/IPRATROPIUM 3 ML NEB RESP TX STA (21:38)
[2018-07-22] MEDS ORDERED: ONDANSETRON 4 MG/2 ML VIAL IV STA (21:38)
[2018-07-22] MEDS ORDERED: SODIUM CHLORIDE 0.9% 500 ML IV STA (21:38)
[2018-07-22] MEDS ORDERED: MAGNESIUM SULF RIDER 2 GM in PREMIX 1 EACH IV STA (21:39)
[2018-07-22 22:52] LABS: Lactic Acid 3.5 MMOL/L (0.4-2.0)
[2018-07-22] MEDS ORDERED: metroNIDAZOLE INJ 500 MG in PREMIX 1 EACH IV STA (22:56)
[2018-07-23 00:05] LABS: Apearance,Urine CLOUDY (Clear); Bilirubin,Urine Negative (Negative); Blood, Urine Small mg/dL (Negative); Glucose,Urine (UA) Negative (Negative); Ketones,Urine Negative (Negative); Nitrite,Urine Negative (Negative); Protein,Urine 30 MG/DL; RBC,Urine 11 /HPF (0-4); Urine Color Yellow (Yellow); Urine Specific Gravity 1.011 (1.001-1.035); Urine Urobilinogen < 2.0 EU/DL (0.2-1.0); WBC,Urine 151 /HPF (0-6)
[2018-07-23] MEDS ORDERED: ONDANSETRON 4 MG/2 ML VIAL IV PRN (00:16)
[2018-07-23] MEDS ORDERED: CLORAZEPATE 3.75 MG TABLET PO PRN (00:21)
[2018-07-23] MEDS ORDERED: traMADol 50 MG TABLET PO PRN (00:21)
[2018-07-23] MEDS ORDERED: SODIUM CHLORIDE 0.9% 1,000 ML IV SCH (00:30)
[2018-07-23] MEDS: PIPERACILLIN/TAZOBACTAM 3,375 MG in SODIUM CHLORIDE 0.9% 100 ML IV SCH ×2 (00:33→06:37)
[2018-07-23 02:04] LABS: Basophils % 0.1 % (0.0-0.8); Eosinophils % 0.1 % (0.00-10.9); Hematocrit 26.4 VOL% (35.7-47.0); Hemoglobin 8.5 GM/DL (12.0-16.0); Immature Granulocytes % 4.8 %; Immature Granulocytes Absolute 0.39 #; Lymphocytes # 1.3 10*3/uL (1.4-4.0); Lymphocytes % 15.8 % (21.3-54.2); Mean Corpuscular HGB Conc 32.2 GM/DL (32-36); Mean Corpuscular Hemoglobin 30 PG (27-34); Mean Corpuscular Volume 93.6 FL (87-102); Mean Platelet Volume 10.5 FL (9.6-12.0); Monocytes # 0.2 10*3/uL (0.11-0.8); Monocytes % 1.8 % (1.7-12.7); NRBC # 0.02 10*3/uL; Neutrophils # 6.3 10*3/uL (1.4-7.4); Neutrophils % 77.4 % (38.7-73.9); Platelet Count 103 T/CUMM (130-400); Red Blood Count 2.82 MC/CUMM (3.8-5.5); Red Cell Distribution Width 17.2 % (9.3-17.3); White Blood Count 8.1 T/CUMM (4-12)
[2018-07-23 02:21] LABS: Albumin 3.2 G/DL (3.4-5.0); Bilirubin,Total 0.4 MG/DL (0.2-1.0); Calcium 8.6 MG/DL (8.5-10.1); Osmolality,Calculated 264.7 MOS/KG (273-304); Potassium 4.2 MMOL/L (3.5-5.1); Total Protein 6.2 G/DL (6.4-8.3)
[2018-07-23] MEDS: LEVOTHYROXINE 125 MCG TABLET PO SCH (05:50)
[2018-07-23] MEDS: BUDESONIDE 0.25 MG/2 ML NEB RESP TX SCH ×2 (07:00→19:46)
[2018-07-23] MEDS: ALBUTEROL 2.5 MG/3 ML NEB RESP TX SCH ×3 (07:00→19:46)
[2018-07-23] MEDS: ARFORMOTEROL 15 MCG/2 ML NEB RESP TX SCH ×2 (07:00→20:00)
[2018-07-23] MEDS: IPRATROPIUM 500 MCG/2.5 ML NEB RESP TX SCH ×2 (07:00→19:46)
[2018-07-23 08:00] LABS: PT Patient Result 10.5 SECS
[2018-07-23 08:02] LABS: Partial Thromboplastin Time 26.4 SECS (0-40)
[2018-07-23] MEDS ORDERED: Saccharomyces Boulardii [Probiotic] 250 MG PO SCH (09:00)
[2018-07-23] MEDS: VANCOMYCIN INJ 1,000 MG in SODIUM CHLORIDE 0.9% 250 ML IV SCH (10:10)
[2018-07-23] MEDS: SODIUM CHLORIDE 0.9% 1,000 ML IV SCH ×2 (10:10→23:48)
[2018-07-23] MEDS: THEOPHYLLINE ER (24 HR) 200 MG CAPSULE PO SCH (10:13)
[2018-07-23] MEDS: METOCLOPRAMIDE 5 MG TABLET PO SCH ×3 (10:13→21:51)
[2018-07-23] MEDS: MAGNESIUM OXIDE 400 MG TABLET PO SCH ×2 (10:14→21:51)
[2018-07-23] MEDS: URSODIOL 300 MG CAPSULE PO SCH ×2 (10:14→21:51)
[2018-07-23] MEDS: metOLazone 2.5 MG TABLET PO SCH (10:14)
[2018-07-23] MEDS: PANTOPRAZOLE 40 MG TABLET PO SCH (10:15)
[2018-07-23] MEDS: SUCRALFATE 1 GM TABLET PO SCH ×4 (10:15→21:51)
[2018-07-23] MEDS: ASPIRIN EC 81 MG TABLET PO SCH (10:15)
[2018-07-23] MEDS: CHOLECALCIFEROL 1,000 UNIT TABLET PO SCH (10:16)
[2018-07-23] MEDS: SELENIUM 200 MCG TABLET PO SCH (10:16)
[2018-07-23] MEDS: ASCORBIC ACID 500 MG TABLET PO SCH (10:16)
[2018-07-23] MEDS: IRBESARTAN 150 MG TABLET PO SCH (10:17)
[2018-07-23] MEDS: predniSONE 5 MG TABLET PO SCH (10:17)
[2018-07-23] MEDS: CETIRIZINE 10 MG TABLET PO SCH (10:17)
[2018-07-23] MEDS ORDERED: ACYCLOVIR 200 MG CAPSULE PO SCH (14:00)
[2018-07-23] MEDS: ACETAMINOPHEN 325 MG TABLET PO PRN ×2 (15:40→21:58)
[2018-07-23] MEDS: FLUCONAZOLE 100 MG TABLET PO SCH (15:40)
[2018-07-23] MEDS: CLOTRIMAZOLE 1% CREAM 15 GM TUBE TOP SCH (21:42)
[2018-07-23] MEDS: MONTELUKAST 10 MG TABLET PO SCH (21:51)
[2018-07-23] MEDS: SIMVASTATIN 40 MG TABLET PO SCH (21:51)
[2018-07-23] MEDS: ZALEPLON 5 MG CAPSULE PO PRN (21:51)
[2018-07-24 05:57] LABS: Hematocrit 21.4 VOL% (35.7-47.0); Immature Granulocytes % 4.7 %; Immature Granulocytes Absolute 0.26 #; Lymphocytes # 1.3 10*3/uL (1.4-4.0); Lymphocytes % 23.8 % (21.3-54.2); Mean Corpuscular HGB Conc 32.7 GM/DL (32-36); Mean Corpuscular Hemoglobin 31 PG (27-34); Mean Corpuscular Volume 93.4 FL (87-102); Monocytes # 0.8 10*3/uL (0.11-0.8); Monocytes % 14.8 % (1.7-12.7); Neutrophils # 3.1 10*3/uL (1.4-7.4); Neutrophils % 56.7 % (38.7-73.9); Platelet Count 82 T/CUMM (130-400); Red Blood Count 2.29 MC/CUMM (3.8-5.5); Red Cell Distribution Width 17.3 % (9.3-17.3); White Blood Count 5.5 T/CUMM (4-12)
[2018-07-24] MEDS: LEVOTHYROXINE 125 MCG TABLET PO SCH (06:00)
[2018-07-24 06:07] LABS: Calcium 8.2 MG/DL (8.5-10.1); Osmolality,Calculated 271.1 MOS/KG (273-304); Potassium 4.3 MMOL/L (3.5-5.1)
[2018-07-24 06:22] LABS: Anisocytosis 1+; Band Neutrophils 6 % (0-10); Lymphocytes 31 % (20-55); Nucleated Red Blood Cells 2 (0-5); Platelet Estimate Decreased; Segmented Neutrophils 56 % (50-85); Total Cells Counted 100
[2018-07-24] MEDS: ALBUTEROL 2.5 MG/3 ML NEB RESP TX SCH ×3 (07:40→19:26)
[2018-07-24] MEDS: ARFORMOTEROL 15 MCG/2 ML NEB RESP TX SCH ×2 (07:40→19:26)
[2018-07-24] MEDS: IPRATROPIUM 500 MCG/2.5 ML NEB RESP TX SCH ×2 (07:40→19:26)
[2018-07-24] MEDS: BUDESONIDE 0.25 MG/2 ML NEB RESP TX SCH ×2 (07:40→19:27)
[2018-07-24] MEDS ORDERED: SODIUM CHLORIDE 0.9% 1,000 ML IV PRN (08:38)
[2018-07-24] MEDS: VANCOMYCIN INJ 1,000 MG in SODIUM CHLORIDE 0.9% 250 ML IV SCH (10:05)
[2018-07-24] MEDS: URSODIOL 300 MG CAPSULE PO SCH ×2 (10:06→20:54)
[2018-07-24] MEDS: THEOPHYLLINE ER (24 HR) 200 MG CAPSULE PO SCH (10:06)
[2018-07-24] MEDS: CHOLECALCIFEROL 1,000 UNIT TABLET PO SCH (10:06)
[2018-07-24] MEDS: IRBESARTAN 150 MG TABLET PO SCH (10:06)
[2018-07-24] MEDS: PANTOPRAZOLE 40 MG TABLET PO SCH (10:06)
[2018-07-24] MEDS: SUCRALFATE 1 GM TABLET PO SCH ×4 (10:06→20:53)
[2018-07-24] MEDS: METOCLOPRAMIDE 5 MG TABLET PO SCH ×3 (10:07→20:53)
[2018-07-24] MEDS: ASPIRIN EC 81 MG TABLET PO SCH (10:07)
[2018-07-24] MEDS: FLUCONAZOLE 100 MG TABLET PO SCH (10:07)
[2018-07-24] MEDS: metOLazone 2.5 MG TABLET PO SCH (10:07)
[2018-07-24] MEDS: SELENIUM 200 MCG TABLET PO SCH (10:07)
[2018-07-24] MEDS: CETIRIZINE 10 MG TABLET PO SCH (10:07)
[2018-07-24] MEDS: MAGNESIUM OXIDE 400 MG TABLET PO SCH ×2 (10:08→20:54)
[2018-07-24] MEDS: ASCORBIC ACID 500 MG TABLET PO SCH (10:08)
[2018-07-24] MEDS: CLOTRIMAZOLE 1% CREAM 15 GM TUBE TOP SCH ×2 (10:08→21:00)
[2018-07-24] MEDS: PHENAZOPYRIDINE 95 MG TABLET PO SCH ×2 (12:53→16:35)
[2018-07-24] MEDS: cefTRIAXone 1,000 MG in SYRINGE 1 EACH IV SCH (14:44)
[2018-07-24 20:34] LABS: Hematocrit 30.7 VOL% (35.7-47.0)
[2018-07-24 20:42] LABS: PT Patient Result 10.6 SECS
[2018-07-24] MEDS: SODIUM CHLORIDE 0.9% 1,000 ML IV SCH (20:52)
[2018-07-24] MEDS: ACETAMINOPHEN 325 MG TABLET PO PRN (20:54)
[2018-07-24] MEDS: SIMVASTATIN 40 MG TABLET PO SCH (20:54)
[2018-07-24] MEDS: MONTELUKAST 10 MG TABLET PO SCH (20:54)
[2018-07-24] MEDS: ZALEPLON 5 MG CAPSULE PO PRN (20:54)
[2018-07-25] MEDS: LEVOTHYROXINE 125 MCG TABLET PO SCH (05:56)
[2018-07-25 06:31] LABS: Basophils % 0.3 % (0.0-0.8); Eosinophils # 0.1 10*3/uL (0.0-0.87); Hematocrit 30.6 VOL% (35.7-47.0); Hemoglobin 10.3 GM/DL (12.0-16.0); Immature Granulocytes % 3.8 %; Immature Granulocytes Absolute 0.44 #; Lymphocytes # 2.6 10*3/uL (1.4-4.0); Lymphocytes % 23.1 % (21.3-54.2); Mean Corpuscular HGB Conc 33.7 GM/DL (32-36); Mean Corpuscular Hemoglobin 30 PG (27-34); Mean Corpuscular Volume 89.5 FL (87-102); Mean Platelet Volume 10.5 FL (9.6-12.0); Monocytes # 1.9 10*3/uL (0.11-0.8); Monocytes % 16.9 % (1.7-12.7); Neutrophils # 6.3 10*3/uL (1.4-7.4); Neutrophils % 54.9 % (38.7-73.9); Platelet Count 91 T/CUMM (130-400); Red Blood Count 3.42 MC/CUMM (3.8-5.5); Red Cell Distribution Width 17.8 % (9.3-17.3); White Blood Count 11.5 T/CUMM (4-12)
[2018-07-25 06:47] LABS: Calcium 8.8 MG/DL (8.5-10.1); Potassium 3.9 MMOL/L (3.5-5.1)
[2018-07-25 07:14] LABS: Atypical Lymphocytes Few; Band Neutrophils 2 % (0-10); Lymphocytes 37 % (20-55); Platelet Estimate Decreased; Segmented Neutrophils 56 % (50-85); Total Cells Counted 100
[2018-07-25] MEDS: BUDESONIDE 0.25 MG/2 ML NEB RESP TX SCH ×2 (07:43→19:00)
[2018-07-25] MEDS: ALBUTEROL 2.5 MG/3 ML NEB RESP TX SCH ×3 (07:43→19:00)
[2018-07-25] MEDS: ARFORMOTEROL 15 MCG/2 ML NEB RESP TX SCH ×2 (07:43→19:00)
[2018-07-25] MEDS: IPRATROPIUM 500 MCG/2.5 ML NEB RESP TX SCH ×2 (07:43→19:00)
[2018-07-25] MEDS: IRBESARTAN 150 MG TABLET PO SCH (10:00)
[2018-07-25] MEDS: URSODIOL 300 MG CAPSULE PO SCH ×2 (10:00→20:45)
[2018-07-25] MEDS: SELENIUM 200 MCG TABLET PO SCH (10:00)
[2018-07-25] MEDS: metOLazone 2.5 MG TABLET PO SCH (10:00)
[2018-07-25] MEDS: CHOLECALCIFEROL 1,000 UNIT TABLET PO SCH (10:01)
[2018-07-25] MEDS: METOCLOPRAMIDE 5 MG TABLET PO SCH ×3 (10:01→20:44)
[2018-07-25] MEDS: SUCRALFATE 1 GM TABLET PO SCH ×4 (10:01→20:44)
[2018-07-25] MEDS: PHENAZOPYRIDINE 95 MG TABLET PO SCH ×3 (10:01→16:41)
[2018-07-25] MEDS: PANTOPRAZOLE 40 MG TABLET PO SCH ×2 (10:01→20:44)
[2018-07-25] MEDS: THEOPHYLLINE ER (24 HR) 200 MG CAPSULE PO SCH (10:01)
[2018-07-25] MEDS: ASPIRIN EC 81 MG TABLET PO SCH (10:02)
[2018-07-25] MEDS: MAGNESIUM OXIDE 400 MG TABLET PO SCH ×2 (10:02→20:44)
[2018-07-25] MEDS: predniSONE 5 MG TABLET PO SCH (10:02)
[2018-07-25] MEDS: CETIRIZINE 10 MG TABLET PO SCH (10:02)
[2018-07-25] MEDS: ASCORBIC ACID 500 MG TABLET PO SCH (10:02)
[2018-07-25] MEDS: FLUCONAZOLE 100 MG TABLET PO SCH (10:02)
[2018-07-25] MEDS: SODIUM CHLORIDE 0.9% 1,000 ML IV SCH (12:45)
[2018-07-25] MEDS: CLOTRIMAZOLE 1% CREAM 15 GM TUBE TOP SCH ×2 (12:48→20:48)
[2018-07-25] MEDS: cefTRIAXone 1,000 MG in SYRINGE 1 EACH IV SCH (14:37)
[2018-07-25] MEDS: SULFAMETHOX/TRIMETHOPRIM 800-160 MG TABLET PO SCH (20:44)
[2018-07-25] MEDS: ZALEPLON 5 MG CAPSULE PO PRN (20:45)
[2018-07-25] MEDS: ACETAMINOPHEN 325 MG TABLET PO PRN (20:45)
[2018-07-25] MEDS: SIMVASTATIN 40 MG TABLET PO SCH (20:45)
[2018-07-25] MEDS: MONTELUKAST 10 MG TABLET PO SCH (20:46)
[2018-07-26] MEDS: SODIUM CHLORIDE 0.9% 1,000 ML IV SCH ×2 (01:10→14:27)
[2018-07-26] MEDS: LEVOTHYROXINE 125 MCG TABLET PO SCH (05:37)
[2018-07-26] MEDS: BUDESONIDE 0.25 MG/2 ML NEB RESP TX SCH (07:10)
[2018-07-26] MEDS: IPRATROPIUM 500 MCG/2.5 ML NEB RESP TX SCH (07:10)
[2018-07-26] MEDS: ALBUTEROL 2.5 MG/3 ML NEB RESP TX SCH (07:10)
[2018-07-26] MEDS: ARFORMOTEROL 15 MCG/2 ML NEB RESP TX SCH (07:10)
[2018-07-26 08:35] LABS: Basophils % 0.3 % (0.0-0.8); Eosinophils # 0.1 10*3/uL (0.0-0.87); Eosinophils % 0.7 % (0.00-10.9); Hematocrit 35.7 VOL% (35.7-47.0); Hemoglobin 11.5 GM/DL (12.0-16.0); Immature Granulocytes % 4.4 %; Immature Granulocytes Absolute 0.67 #; Lymphocytes # 5.6 10*3/uL (1.4-4.0); Lymphocytes % 37.1 % (21.3-54.2); Mean Corpuscular HGB Conc 32.2 GM/DL (32-36); Mean Corpuscular Hemoglobin 29 PG (27-34); Mean Corpuscular Volume 90.2 FL (87-102); Mean Platelet Volume 10.7 FL (9.6-12.0); Monocytes # 2.4 10*3/uL (0.11-0.8); NRBC # 0.02 10*3/uL; Neutrophils # 6.3 10*3/uL (1.4-7.4); Neutrophils % 41.5 % (38.7-73.9); Platelet Count 101 T/CUMM (130-400); Red Blood Count 3.96 MC/CUMM (3.8-5.5); Red Cell Distribution Width 17.6 % (9.3-17.3); White Blood Count 15.1 T/CUMM (4-12)
[2018-07-26] MEDS: IRBESARTAN 150 MG TABLET PO SCH (10:14)
[2018-07-26] MEDS: ASCORBIC ACID 500 MG TABLET PO SCH (10:31)
[2018-07-26] MEDS: MAGNESIUM OXIDE 400 MG TABLET PO SCH (10:31)
[2018-07-26] MEDS: PANTOPRAZOLE 40 MG TABLET PO SCH (10:31)
[2018-07-26] MEDS: SELENIUM 200 MCG TABLET PO SCH (10:31)
[2018-07-26] MEDS: PHENAZOPYRIDINE 95 MG TABLET PO SCH ×2 (10:31→11:45)
[2018-07-26] MEDS: CETIRIZINE 10 MG TABLET PO SCH (10:31)
[2018-07-26] MEDS: ASPIRIN EC 81 MG TABLET PO SCH (10:31)
[2018-07-26] MEDS: SULFAMETHOX/TRIMETHOPRIM 800-160 MG TABLET PO SCH (10:31)
[2018-07-26] MEDS: METOCLOPRAMIDE 5 MG TABLET PO SCH (10:31)
[2018-07-26] MEDS: CHOLECALCIFEROL 1,000 UNIT TABLET PO SCH (10:31)
[2018-07-26] MEDS: metOLazone 2.5 MG TABLET PO SCH (10:34)
[2018-07-26] MEDS: CLOTRIMAZOLE 1% CREAM 15 GM TUBE TOP SCH (10:37)
[2018-07-26] MEDS: FLUCONAZOLE 100 MG TABLET PO SCH (10:37)
[2018-07-26] MEDS: THEOPHYLLINE ER (24 HR) 200 MG CAPSULE PO SCH (10:37)
[2018-07-26] MEDS: SUCRALFATE 1 GM TABLET PO SCH ×2 (10:41→11:45)
[2018-07-26] MEDS: URSODIOL 300 MG CAPSULE PO SCH (10:47)
[2018-07-26 11:52] VITALS: BP 132/61
[2018-07-26 12:45] LABS: Band Neutrophils 1 % (0-10); Eosinophils 1 % (0-10); Lymphocytes 22 % (20-55); Segmented Neutrophils 60 % (50-85); Total Cells Counted 100
[2018-07-26 12:46] LABS: Macrocytosis Slight
[2018-07-26 12:47] LABS: Ovalocytes Slight
== END 2018-07-26 14:45 | disposition home health service (06) | DRG 394 ==
LOC: N.ED 20:04 → SUATTDRO 07-23 00:16 → N.EDINP 07-23 00:16 → N.3E 07-23 00:54
PROVIDERS: ADMIT Internal Medicine; ATTEND Hospitalist

== ENCOUNTER 2018-11-23 04:39 | Inpatient (IN) ==
[2018-11-23] MEDS ORDERED: MORPHINE 4 MG/1 ML VIAL IV STA (04:56)
[2018-11-23] MEDS ORDERED: ONDANSETRON 4 MG/2 ML VIAL IV STA (04:56)
[2018-11-23 05:04] LABS: Basophils % 0.4 % (0.0-0.8); Eosinophils # 0.1 10*3/uL (0.0-0.87); Eosinophils % 1.1 % (0.00-10.9); Hematocrit 38.7 VOL% (35.7-47.0); Hemoglobin 12.6 GM/DL (12.0-16.0); Immature Granulocytes % 0.7 %; Immature Granulocytes Absolute 0.06 #; Lymphocytes # 3.5 10*3/uL (1.4-4.0); Lymphocytes % 38.8 % (21.3-54.2); Mean Corpuscular HGB Conc 32.6 GM/DL (32-36); Mean Corpuscular Hemoglobin 28 PG (27-34); Mean Corpuscular Volume 86.6 FL (87-102); Mean Platelet Volume 11.6 FL (9.6-12.0); Monocytes # 1.4 10*3/uL (0.11-0.8); Monocytes % 15.2 % (1.7-12.7); Neutrophils % 43.8 % (38.7-73.9); Platelet Count 156 T/CUMM (130-400); Red Blood Count 4.47 MC/CUMM (3.8-5.5); Red Cell Distribution Width 15.9 % (9.3-17.3)
[2018-11-23 05:17] LABS: Albumin 3.1 G/DL (3.4-5.0); Bilirubin,Total 0.4 MG/DL (0.2-1.0); Calcium 9.1 MG/DL (8.5-10.1); Osmolality,Calculated 267.2 MOS/KG (273-304); Potassium 2.8 MMOL/L (3.5-5.1); Total Protein 6.8 G/DL (6.4-8.3)
[2018-11-23 05:22] LABS: Apearance,Urine CLEAR (Clear); Bilirubin,Urine Negative (Negative); Blood, Urine Large mg/dL (Negative); Glucose,Urine (UA) Negative (Negative); Ketones,Urine Negative (Negative); Nitrite,Urine Negative (Negative); Protein,Urine 30 MG/DL; RBC,Urine 502 /HPF (0-4); Urine Color Yellow (Yellow); Urine Specific Gravity 1.012 (1.001-1.035); Urine Urobilinogen < 2.0 EU/DL (0.2-1.0); WBC,Urine 8 /HPF (0-6)
[2018-11-23] MEDS ORDERED: ASPIRIN EC 325 MG TABLET PO STA (05:23)
[2018-11-23] MEDS ORDERED: POTASSIUM BICARB EFFERVESCENT 25 MEQ TABLET PO ONE (05:30)
[2018-11-23] MEDS ORDERED: POTASSIUM CHLORIDE RIDER 20 MEQ in PREMIX 1 EACH IV STA (05:38)
[2018-11-23] MEDS ORDERED: POTASSIUM CHLORIDE RIDER 100 ML IV ONE (05:54)
[2018-11-23] MEDS ORDERED: SODIUM CHLOR 0.9% KCL 40 MEQ 40 MEQ/1,000 ML BAG IV ONE (06:18)
[2018-11-23] MEDS ORDERED: MORPHINE 4 MG/1 ML VIAL IV PRN (06:22)
[2018-11-23] MEDS ORDERED: ONDANSETRON 4 MG/2 ML VIAL IV PRN (06:22)
[2018-11-23] MEDS ORDERED: ACETAMINOPHEN 325 MG TABLET PO PRN (06:22)
[2018-11-23] MEDS ORDERED: DOCUSATE SODIUM 100 MG CAPSULE PO PRN (06:22)
[2018-11-23] MEDS ORDERED: MAGNESIUM SULF RIDER 4 GM in PREMIX 1 EACH IV PRN (06:28)
[2018-11-23] MEDS ORDERED: SODIUM CHLOR 0.9% KCL 40 MEQ 40 MEQ/1,000 ML BAG IV SCH (06:30)
[2018-11-23] MEDS ORDERED: ENOXAPARIN 60 MG/0.6 ML SYRINGE SUBCUT SCH (07:00)
[2018-11-23] MEDS ORDERED: ENOXAPARIN 40 MG/0.4 ML SYRINGE SUBCUT SCH (09:00)
[2018-11-23] MEDS ORDERED: ENOXAPARIN 60 MG/0.6 ML SYRINGE ONE (12:47)
[2018-11-23] MEDS: SODIUM CHLORIDE 0.9% 1,000 ML IV SCH ×3 (15:35→23:20)
[2018-11-23] MEDS: MAGNESIUM SULF RIDER 2 GM in PREMIX 1 EACH IV PRN (16:43)
[2018-11-23] MEDS ORDERED: traMADol 50 MG TABLET PO PRN (21:19)
[2018-11-23] MEDS ORDERED: CLORAZEPATE 3.75 MG TABLET PO PRN (21:19)
[2018-11-23] MEDS: BUDESONIDE 0.25 MG/2 ML NEB RESP TX SCH (21:47)
[2018-11-23] MEDS: ARFORMOTEROL 15 MCG/2 ML NEB RESP TX SCH (21:47)
[2018-11-23] MEDS: IPRATROPIUM 500 MCG/2.5 ML NEB RESP TX SCH (21:47)
[2018-11-23] MEDS: URSODIOL 300 MG CAPSULE PO SCH (21:55)
[2018-11-23] MEDS: MONTELUKAST 10 MG TABLET PO SCH (21:55)
[2018-11-24 05:38] LABS: Basophils % 0.3 % (0.0-0.8); Eosinophils # 0.1 10*3/uL (0.0-0.87); Eosinophils % 1.5 % (0.00-10.9); Hematocrit 35.1 VOL% (35.7-47.0); Hemoglobin 11.4 GM/DL (12.0-16.0); Immature Granulocytes % 0.9 %; Immature Granulocytes Absolute 0.06 #; Lymphocytes # 2.5 10*3/uL (1.4-4.0); Lymphocytes % 36.6 % (21.3-54.2); Mean Corpuscular HGB Conc 32.5 GM/DL (32-36); Mean Corpuscular Hemoglobin 29 PG (27-34); Mean Platelet Volume 12.1 FL (9.6-12.0); Monocytes # 1.2 10*3/uL (0.11-0.8); Monocytes % 17.1 % (1.7-12.7); Neutrophils % 43.6 % (38.7-73.9); Red Blood Count 3.99 MC/CUMM (3.8-5.5); Red Cell Distribution Width 15.9 % (9.3-17.3); White Blood Count 6.8 T/CUMM (4-12)
[2018-11-24 05:43] LABS: Platelet Count 123 T/CUMM (130-400)
[2018-11-24 05:48] LABS: Band Neutrophils 5 % (0-10); Eosinophils 1 % (0-10); Lymphocytes 36 % (20-55); Myelocytes 1 %; Nucleated Red Blood Cells 4 (0-5); Platelet Estimate Decreased; Polychromasia Few; Segmented Neutrophils 54 % (50-85); Total Cells Counted 100
[2018-11-24 05:49] LABS: Calcium 7.9 MG/DL (8.5-10.1); Osmolality,Calculated 263.4 MOS/KG (273-304); Potassium 3.3 MMOL/L (3.5-5.1)
[2018-11-24] MEDS: POTASSIUM CHLORIDE 20 MEQ TABLET PO PRN ×2 (06:09→09:11)
[2018-11-24] MEDS: LEVOTHYROXINE 125 MCG TABLET PO SCH (06:09)
[2018-11-24] MEDS: MAGNESIUM SULF RIDER 2 GM in PREMIX 1 EACH IV PRN (06:19)
[2018-11-24] MEDS: SODIUM CHLORIDE 0.9% 1,000 ML IV SCH ×2 (06:51→17:45)
[2018-11-24] MEDS: IPRATROPIUM 500 MCG/2.5 ML NEB RESP TX SCH ×2 (07:30→18:50)
[2018-11-24] MEDS: BUDESONIDE 0.25 MG/2 ML NEB RESP TX SCH ×2 (07:30→18:50)
[2018-11-24] MEDS: ARFORMOTEROL 15 MCG/2 ML NEB RESP TX SCH ×2 (07:30→18:50)
[2018-11-24] MEDS ORDERED: metOLazone 2.5 MG TABLET PO SCH (09:00)
[2018-11-24] MEDS: ENOXAPARIN 40 MG/0.4 ML SYRINGE SUBCUT SCH (09:08)
[2018-11-24] MEDS: ASPIRIN EC 81 MG TABLET PO SCH (09:08)
[2018-11-24] MEDS: METOCLOPRAMIDE 10 MG TABLET PO SCH ×4 (09:09→23:00)
[2018-11-24] MEDS: SUCRALFATE 1 GM TABLET PO SCH ×4 (09:10→23:00)
[2018-11-24] MEDS: CHOLECALCIFEROL 1,000 UNIT TABLET PO SCH (09:10)
[2018-11-24] MEDS: MAGNESIUM OXIDE 400 MG TABLET PO SCH ×3 (09:10→23:00)
[2018-11-24] MEDS: URSODIOL 300 MG CAPSULE PO SCH ×2 (09:10→23:00)
[2018-11-24] MEDS: LOSARTAN 50 MG TABLET PO SCH (09:11)
[2018-11-24] MEDS: SELENIUM 200 MCG TABLET PO SCH (09:11)
[2018-11-24] MEDS: ASCORBIC ACID 500 MG TABLET PO SCH (09:11)
[2018-11-24] MEDS: SPIRONOLACTONE 25 MG TABLET PO SCH (12:45)
[2018-11-24] MEDS: CETIRIZINE 10 MG TABLET PO SCH (12:45)
[2018-11-24] MEDS: Saccharomyces Boulardii [Probiotic] 250 MG PO SCH (14:20)
[2018-11-24] MEDS: PANTOPRAZOLE 40 MG TABLET PO SCH (15:52)
[2018-11-24] MEDS: MONTELUKAST 10 MG TABLET PO SCH (23:00)
[2018-11-24] MEDS: SIMVASTATIN 40 MG TABLET PO SCH (23:00)
[2018-11-25] MEDS: SODIUM CHLORIDE 0.9% 1,000 ML IV SCH ×3 (02:30→15:10)
[2018-11-25 04:25] LABS: Basophils % 0.3 % (0.0-0.8); Eosinophils # 0.1 10*3/uL (0.0-0.87); Eosinophils % 0.7 % (0.00-10.9); Hematocrit 33.8 VOL% (35.7-47.0); Hemoglobin 10.6 GM/DL (12.0-16.0); Immature Granulocytes % 0.9 %; Immature Granulocytes Absolute 0.09 #; Lymphocytes # 2.9 10*3/uL (1.4-4.0); Lymphocytes % 29.5 % (21.3-54.2); Mean Corpuscular HGB Conc 31.4 GM/DL (32-36); Mean Corpuscular Hemoglobin 28 PG (27-34); Mean Corpuscular Volume 90.1 FL (87-102); Monocytes # 1.7 10*3/uL (0.11-0.8); Monocytes % 17.9 % (1.7-12.7); Neutrophils # 4.9 10*3/uL (1.4-7.4); Neutrophils % 50.7 % (38.7-73.9); Platelet Count 112 T/CUMM (130-400); Red Blood Count 3.75 MC/CUMM (3.8-5.5); Red Cell Distribution Width 15.9 % (9.3-17.3); White Blood Count 9.7 T/CUMM (4-12)
[2018-11-25 05:07] LABS: Band Neutrophils 1 % (0-10); Eosinophils 3 % (0-10); Hypochromasia 1+; Lymphocytes 33 % (20-55); Platelet Estimate Decreased; Segmented Neutrophils 51 % (50-85); Total Cells Counted 100
[2018-11-25 05:08] LABS: Atypical Lymphocytes Few
[2018-11-25 05:22] LABS: Calcium 7.8 MG/DL (8.5-10.1); Osmolality,Calculated 267.2 MOS/KG (273-304); Potassium 3.9 MMOL/L (3.5-5.1)
[2018-11-25] MEDS: BUDESONIDE 0.25 MG/2 ML NEB RESP TX SCH ×2 (07:05→20:01)
[2018-11-25] MEDS: IPRATROPIUM 500 MCG/2.5 ML NEB RESP TX SCH ×2 (07:05→20:01)
[2018-11-25] MEDS: ARFORMOTEROL 15 MCG/2 ML NEB RESP TX SCH ×2 (07:05→20:01)
[2018-11-25] MEDS: LEVOTHYROXINE 125 MCG TABLET PO SCH (07:23)
[2018-11-25] MEDS ORDERED: predniSONE 5 MG TABLET PO SCH (09:00)
[2018-11-25] MEDS: CHOLECALCIFEROL 1,000 UNIT TABLET PO SCH (10:01)
[2018-11-25] MEDS: SPIRONOLACTONE 25 MG TABLET PO SCH (10:01)
[2018-11-25] MEDS: URSODIOL 300 MG CAPSULE PO SCH ×2 (10:02→22:13)
[2018-11-25] MEDS: MAGNESIUM OXIDE 400 MG TABLET PO SCH ×3 (10:02→22:12)
[2018-11-25] MEDS: ENOXAPARIN 40 MG/0.4 ML SYRINGE SUBCUT SCH (10:04)
[2018-11-25] MEDS: ASPIRIN EC 81 MG TABLET PO SCH (10:04)
[2018-11-25] MEDS: LOSARTAN 50 MG TABLET PO SCH (10:04)
[2018-11-25] MEDS: SUCRALFATE 1 GM TABLET PO SCH ×4 (10:04→22:11)
[2018-11-25] MEDS: ASCORBIC ACID 500 MG TABLET PO SCH (10:04)
[2018-11-25] MEDS: METOCLOPRAMIDE 10 MG TABLET PO SCH ×4 (10:04→22:11)
[2018-11-25] MEDS: SELENIUM 200 MCG TABLET PO SCH (10:04)
[2018-11-25] MEDS: CETIRIZINE 10 MG TABLET PO SCH (10:04)
[2018-11-25] MEDS: Saccharomyces Boulardii [Probiotic] 250 MG PO SCH (10:34)
[2018-11-25] MEDS: AZITHROMYCIN 250 MG TABLET PO SCH (15:09)
[2018-11-25] MEDS: cefTRIAXone 1,000 MG in SYRINGE 1 EACH IV SCH (15:10)
[2018-11-25] MEDS: PANTOPRAZOLE 40 MG TABLET PO SCH (17:29)
[2018-11-25] MEDS: SIMVASTATIN 40 MG TABLET PO SCH (22:10)
[2018-11-25] MEDS: MONTELUKAST 10 MG TABLET PO SCH (22:11)
[2018-11-26] MEDS: cefTRIAXone 1,000 MG in SYRINGE 1 EACH IV SCH (03:30)
[2018-11-26 04:24] LABS: Basophils % 0.2 % (0.0-0.8); Eosinophils # 0.1 10*3/uL (0.0-0.87); Eosinophils % 0.7 % (0.00-10.9); Hematocrit 30.9 VOL% (35.7-47.0); Hemoglobin 9.9 GM/DL (12.0-16.0); Immature Granulocytes % 0.7 %; Immature Granulocytes Absolute 0.07 #; Lymphocytes # 2.6 10*3/uL (1.4-4.0); Lymphocytes % 26.4 % (21.3-54.2); Mean Corpuscular Hemoglobin 28 PG (27-34); Mean Corpuscular Volume 88.3 FL (87-102); Monocytes # 1.4 10*3/uL (0.11-0.8); Neutrophils # 5.8 10*3/uL (1.4-7.4); Platelet Count 109 T/CUMM (130-400); Red Cell Distribution Width 15.9 % (9.3-17.3)
[2018-11-26 05:12] LABS: Calcium 8.1 MG/DL (8.5-10.1); Osmolality,Calculated 260.7 MOS/KG (273-304); Potassium 4.1 MMOL/L (3.5-5.1)
[2018-11-26] MEDS: LEVOTHYROXINE 125 MCG TABLET PO SCH (06:43)
[2018-11-26] MEDS: BUDESONIDE 0.25 MG/2 ML NEB RESP TX SCH (07:18)
[2018-11-26] MEDS: ARFORMOTEROL 15 MCG/2 ML NEB RESP TX SCH (07:18)
[2018-11-26] MEDS: IPRATROPIUM 500 MCG/2.5 ML NEB RESP TX SCH (07:18)
[2018-11-26] MEDS: METOCLOPRAMIDE 10 MG TABLET PO SCH ×2 (10:49)
[2018-11-26] MEDS: AZITHROMYCIN 250 MG TABLET PO SCH (10:50)
[2018-11-26] MEDS: MAGNESIUM OXIDE 400 MG TABLET PO SCH (10:50)
[2018-11-26] MEDS: ASCORBIC ACID 500 MG TABLET PO SCH (10:50)
[2018-11-26] MEDS: ASPIRIN EC 81 MG TABLET PO SCH (10:50)
[2018-11-26] MEDS: SELENIUM 200 MCG TABLET PO SCH (10:50)
[2018-11-26] MEDS: URSODIOL 300 MG CAPSULE PO SCH (10:51)
[2018-11-26] MEDS: SPIRONOLACTONE 25 MG TABLET PO SCH (10:51)
[2018-11-26] MEDS: SUCRALFATE 1 GM TABLET PO SCH ×2 (10:51)
[2018-11-26] MEDS: CHOLECALCIFEROL 1,000 UNIT TABLET PO SCH (10:51)
[2018-11-26] MEDS: CETIRIZINE 10 MG TABLET PO SCH (10:51)
[2018-11-26] MEDS: Saccharomyces Boulardii [Probiotic] 250 MG PO SCH (10:52)
[2018-11-26] MEDS: LOSARTAN 50 MG TABLET PO SCH (10:52)
[2018-11-26] MEDS: ENOXAPARIN 40 MG/0.4 ML SYRINGE SUBCUT SCH (10:52)
[2018-11-26 12:37] VITALS: BP 103/59
[2018-11-26] MEDS: SODIUM CHLORIDE 0.9% 1,000 ML IV SCH (13:01)
== END 2018-11-26 13:40 | disposition swing bed (61) | DRG 564 ==
LOC: EDUNIT# → EDBD → N.ED 04:39 → N.EDINP 06:21 → SUATTDRO 06:21 → N.TELES 06:35
PROVIDERS: ADMIT Emergency Medicine; ATTEND Emergency Medicine

== ENCOUNTER 2019-02-10 10:19 | Inpatient (IN) ==
[2019-02-10] MEDS ORDERED: SODIUM CHLORIDE 0.9% 500 ML IV STA (12:27)
[2019-02-10] MEDS ORDERED: ALBUTEROL/IPRATROPIUM 3 ML NEB RESP TX STA (12:28)
[2019-02-10 13:31] LABS: Basophils # 0.1 10*3/uL (0.0-0.2); Basophils % 0.3 % (0.0-0.8); Eosinophils % 2.2 % (0.00-10.9); Hemoglobin 11.5 GM/DL (12.0-16.0); Immature Granulocytes % 3.1 %; Immature Granulocytes Absolute 1.34 #; Lymphocytes # 3.5 10*3/uL (1.4-4.0); Lymphocytes % 8.1 % (21.3-54.2); Mean Corpuscular HGB Conc 31.9 GM/DL (32-36); Mean Corpuscular Hemoglobin 28 PG (27-34); Mean Corpuscular Volume 86.7 FL (87-102); Mean Platelet Volume 11.4 FL (9.6-12.0); Monocytes # 6.2 10*3/uL (0.11-0.8); Monocytes % 14.2 % (1.7-12.7); Neutrophils # 31.4 10*3/uL (1.4-7.4); Neutrophils % 72.1 % (38.7-73.9); Platelet Count 172 T/CUMM (130-400); Red Blood Count 4.15 MC/CUMM (3.8-5.5); Red Cell Distribution Width 16.1 % (9.3-17.3)
[2019-02-10 13:32] LABS: White Blood Count 43.6 T/CUMM (4-12)
[2019-02-10] MEDS ORDERED: PIPERACILLIN/TAZOBACTAM 3,375 MG in SODIUM CHLORIDE 0.9% 100 ML IV STA (13:33)
[2019-02-10 13:53] LABS: Albumin 3.3 G/DL (3.4-5.0); Bilirubin,Total 1.5 MG/DL (0.2-1.0); Calcium 9.5 MG/DL (8.5-10.1); Osmolality,Calculated 270.7 MOS/KG (273-304); Total Protein 7.4 G/DL (6.4-8.3)
[2019-02-10 14:18] LABS: Apearance,Urine CLOUDY (Clear); Bacteria,Urine Moderate /HPF (Few); Bilirubin,Urine Negative (Negative); Blood, Urine Moderate mg/dL (Negative); Glucose,Urine (UA) Negative (Negative); Ketones,Urine Negative (Negative); Nitrite,Urine Negative (Negative); Protein,Urine >=500 MG/DL; RBC,Urine 26 /HPF (0-4); Urine Color Amber (Yellow); Urine Specific Gravity 1.013 (1.001-1.035); Urine Urobilinogen < 2.0 EU/DL (0.2-1.0); WBC,Urine 1248 /HPF (0-6)
[2019-02-10] MEDS ORDERED: LACTATED RINGERS 1,000 ML IV ONE (15:10)
[2019-02-10] MEDS: DEXAMETHASONE 4 MG/1 ML VIAL IV SCH (16:16)
[2019-02-10] MEDS: ceFAZolin 1,000 MG in SYRINGE 1 EACH IV SCH ×2 (16:19→21:10)
[2019-02-10] MEDS: LEVOFLOXACIN INJ 500 MG in PREMIX 1 EACH IV SCH (16:55)
[2019-02-10 18:16] LABS: Eosinophils 1 % (0-10); Lymphocytes 10 % (20-55); Segmented Neutrophils 74 % (50-85)
[2019-02-10 18:17] LABS: Platelet Estimate Decreased
[2019-02-10 18:18] LABS: Hypochromasia Slight; Ovalocytes Slight; Total Cells Counted 100
[2019-02-10] MEDS ORDERED: ONDANSETRON 4 MG/2 ML VIAL IV PRN (18:23)
[2019-02-10] MEDS: SODIUM CHLORIDE 0.9% 1,000 ML IV SCH (19:00)
[2019-02-10] MEDS: SUCRALFATE 1 GM TABLET PO SCH (21:13)
[2019-02-10] MEDS: URSODIOL 300 MG CAPSULE PO SCH (21:13)
[2019-02-10] MEDS: MONTELUKAST 10 MG TABLET PO SCH (21:13)
[2019-02-10] MEDS: ENOXAPARIN 30 MG/0.3 ML SYRINGE SUBCUT SCH (21:13)
[2019-02-11] MEDS: DEXAMETHASONE 4 MG/1 ML VIAL IV SCH ×4 (00:44→23:35)
[2019-02-11] MEDS: SODIUM CHLORIDE 0.9% 1,000 ML IV SCH ×3 (03:10→23:08)
[2019-02-11 04:12] LABS: Eosinophils # 0.1 10*3/uL (0.0-0.87); Eosinophils % 0.3 % (0.00-10.9); Hematocrit 31.6 VOL% (35.7-47.0); Hemoglobin 9.8 GM/DL (12.0-16.0); Immature Granulocytes % 1.8 %; Immature Granulocytes Absolute 0.38 #; Lymphocytes # 1.5 10*3/uL (1.4-4.0); Lymphocytes % 7.4 % (21.3-54.2); Mean Corpuscular Hemoglobin 27 PG (27-34); Mean Corpuscular Volume 87.8 FL (87-102); Mean Platelet Volume 12.9 FL (9.6-12.0); Monocytes # 0.5 10*3/uL (0.11-0.8); Monocytes % 2.3 % (1.7-12.7); Neutrophils # 18.2 10*3/uL (1.4-7.4); Neutrophils % 88.2 % (38.7-73.9); Platelet Count 132 T/CUMM (130-400); Red Cell Distribution Width 15.8 % (9.3-17.3); White Blood Count 20.7 T/CUMM (4-12)
[2019-02-11 04:31] LABS: INR 1.3; PT Patient Result 14.3 SECS
[2019-02-11 04:34] LABS: Albumin 2.4 G/DL (3.4-5.0); Bilirubin,Total 0.7 MG/DL (0.2-1.0); Calcium 8.6 MG/DL (8.5-10.1); Osmolality,Calculated 267.5 MOS/KG (273-304); Potassium 4.1 MMOL/L (3.5-5.1); Total Protein 6.4 G/DL (6.4-8.3)
[2019-02-11] MEDS: ceFAZolin 1,000 MG in SYRINGE 1 EACH IV SCH ×4 (04:34→21:02)
[2019-02-11 04:36] LABS: Troponin I 0.727 NG/ML (0.00-0.045)
[2019-02-11 04:52] LABS: Band Neutrophils 1 % (0-10); Lymphocytes 7 % (20-55); Segmented Neutrophils 91 % (50-85); Total Cells Counted 100
[2019-02-11 04:53] LABS: Anisocytosis 1+; Ovalocytes Few; Platelet Estimate Normal
[2019-02-11] MEDS: LEVOTHYROXINE 125 MCG TABLET PO SCH (06:58)
[2019-02-11] MEDS: URSODIOL 300 MG CAPSULE PO SCH ×2 (08:09→20:12)
[2019-02-11] MEDS: SUCRALFATE 1 GM TABLET PO SCH ×4 (08:10→20:12)
[2019-02-11] MEDS: LACTOBACILLUS ACIDOPHILUS/BULGARICUS CAPLET PO SCH (08:10)
[2019-02-11] MEDS: LEVOFLOXACIN INJ 500 MG in PREMIX 1 EACH IV SCH (17:17)
[2019-02-11] MEDS: PANTOPRAZOLE 40 MG TABLET PO SCH (17:17)
[2019-02-11] MEDS: ENOXAPARIN 30 MG/0.3 ML SYRINGE SUBCUT SCH (20:12)
[2019-02-11] MEDS: MONTELUKAST 10 MG TABLET PO SCH (20:13)
[2019-02-11] MEDS ORDERED: ZALEPLON 5 MG CAPSULE PO ONE (22:59)
[2019-02-12] MEDS: SODIUM CHLORIDE 0.9% 1,000 ML IV SCH ×3 (04:28→20:32)
[2019-02-12 04:49] LABS: Basophils % 0.2 % (0.0-0.8); Hematocrit 28.8 VOL% (35.7-47.0); Hemoglobin 9.1 GM/DL (12.0-16.0); Immature Granulocytes % 1.2 %; Immature Granulocytes Absolute 0.07 #; Lymphocytes # 1.1 10*3/uL (1.4-4.0); Lymphocytes % 18.5 % (21.3-54.2); Mean Corpuscular HGB Conc 31.6 GM/DL (32-36); Mean Corpuscular Hemoglobin 28 PG (27-34); Mean Corpuscular Volume 87.3 FL (87-102); Mean Platelet Volume 12.4 FL (9.6-12.0); Monocytes # 0.4 10*3/uL (0.11-0.8); Monocytes % 6.2 % (1.7-12.7); Neutrophils # 4.5 10*3/uL (1.4-7.4); Neutrophils % 73.9 % (38.7-73.9); Platelet Count 116 T/CUMM (130-400); Red Cell Distribution Width 15.6 % (9.3-17.3)
[2019-02-12 05:01] LABS: Calcium 7.8 MG/DL (8.5-10.1); Potassium 4.2 MMOL/L (3.5-5.1)
[2019-02-12] MEDS: ceFAZolin 1,000 MG in SYRINGE 1 EACH IV SCH ×3 (05:10→17:28)
[2019-02-12] MEDS: LEVOTHYROXINE 125 MCG TABLET PO SCH (06:14)
[2019-02-12] MEDS: SUCRALFATE 1 GM TABLET PO SCH ×4 (07:46→20:27)
[2019-02-12] MEDS: DEXAMETHASONE 4 MG/1 ML VIAL IV SCH ×2 (07:46→20:24)
[2019-02-12] MEDS: LACTOBACILLUS ACIDOPHILUS/BULGARICUS CAPLET PO SCH ×2 (07:50→09:05)
[2019-02-12] MEDS: URSODIOL 300 MG CAPSULE PO SCH ×3 (07:51→20:27)
[2019-02-12] MEDS ORDERED: MAGNESIUM SULF RIDER 4 GM in PREMIX 1 EACH IV ONE (09:30)
[2019-02-12] MEDS: PANTOPRAZOLE 40 MG TABLET PO SCH (15:55)
[2019-02-12] MEDS ORDERED: traMADol 50 MG TABLET PO PRN (15:58)
[2019-02-12] MEDS: ALUMINUM/MAGNES/SIMETH MAX STR 30 ML UDCUP PO SCH ×2 (16:28→20:28)
[2019-02-12] MEDS: cefTRIAXone 1,000 MG in SYRINGE 1 EACH IV SCH (16:28)
[2019-02-12] MEDS: LOSARTAN 50 MG TABLET PO SCH (16:28)
[2019-02-12] MEDS: LEVOFLOXACIN INJ 500 MG in PREMIX 1 EACH IV SCH (18:09)
[2019-02-12] MEDS: ARFORMOTEROL 15 MCG/2 ML NEB RESP TX SCH (18:56)
[2019-02-12] MEDS: ENOXAPARIN 30 MG/0.3 ML SYRINGE SUBCUT SCH (20:21)
[2019-02-12] MEDS: MONTELUKAST 10 MG TABLET PO SCH (20:27)
[2019-02-12] MEDS: DOCUSATE SODIUM 100 MG CAPSULE PO SCH (20:28)
[2019-02-12] MEDS: ACETAMINOPHEN 325 MG TABLET PO PRN (20:59)
[2019-02-13] MEDS: ALUMINUM/MAGNES/SIMETH MAX STR 30 ML UDCUP PO SCH ×2 (00:58→04:09)
[2019-02-13] MEDS: SODIUM CHLORIDE 0.9% 1,000 ML IV SCH (01:49)
[2019-02-13] MEDS: LEVOTHYROXINE 125 MCG TABLET PO SCH (05:53)
[2019-02-13 06:34] LABS: Eosinophils % 0.2 % (0.00-10.9); Hematocrit 29.3 VOL% (35.7-47.0); Hemoglobin 9.2 GM/DL (12.0-16.0); Immature Granulocytes % 4.4 %; Immature Granulocytes Absolute 0.25 #; Lymphocytes # 1.3 10*3/uL (1.4-4.0); Lymphocytes % 22.8 % (21.3-54.2); Mean Corpuscular HGB Conc 31.4 GM/DL (32-36); Mean Corpuscular Hemoglobin 27 PG (27-34); Mean Corpuscular Volume 86.2 FL (87-102); Mean Platelet Volume 12.1 FL (9.6-12.0); Monocytes # 0.6 10*3/uL (0.11-0.8); Monocytes % 9.8 % (1.7-12.7); Neutrophils # 3.5 10*3/uL (1.4-7.4); Neutrophils % 62.8 % (38.7-73.9); Platelet Count 131 T/CUMM (130-400); Red Cell Distribution Width 15.3 % (9.3-17.3); White Blood Count 5.6 T/CUMM (4-12)
[2019-02-13 06:46] LABS: Calcium 7.8 MG/DL (8.5-10.1); Potassium 3.3 MMOL/L (3.5-5.1)
[2019-02-13] MEDS: ARFORMOTEROL 15 MCG/2 ML NEB RESP TX SCH ×2 (07:04→19:04)
[2019-02-13] MEDS: LOSARTAN 50 MG TABLET PO SCH (08:52)
[2019-02-13] MEDS: URSODIOL 300 MG CAPSULE PO SCH ×2 (08:52→20:10)
[2019-02-13] MEDS: LACTOBACILLUS ACIDOPHILUS/BULGARICUS CAPLET PO SCH (08:53)
[2019-02-13] MEDS: DOCUSATE SODIUM 100 MG CAPSULE PO SCH ×2 (08:53→20:11)
[2019-02-13] MEDS: DEXAMETHASONE 4 MG/1 ML VIAL IV SCH ×2 (08:53→16:43)
[2019-02-13] MEDS: ASPIRIN EC 81 MG TABLET PO SCH (08:53)
[2019-02-13] MEDS: SUCRALFATE 1 GM TABLET PO SCH ×4 (08:53→20:10)
[2019-02-13] MEDS ORDERED: POTASSIUM CHLORIDE 20 MEQ/15 ML UDCUP PO ONE (10:16)
[2019-02-13] MEDS: FUROSEMIDE 20 MG/2 ML VIAL IV SCH ×2 (11:23→17:13)
[2019-02-13] MEDS: cefTRIAXone 1,000 MG in SYRINGE 1 EACH IV SCH (16:42)
[2019-02-13] MEDS: PANTOPRAZOLE 40 MG TABLET PO SCH (16:42)
[2019-02-13] MEDS: LEVOFLOXACIN INJ 500 MG in PREMIX 1 EACH IV SCH (16:44)
[2019-02-13] MEDS: ALBUTEROL 2.5 MG/3 ML NEB RESP TX SCH (19:04)
[2019-02-13] MEDS: IPRATROPIUM 500 MCG/2.5 ML NEB RESP TX SCH (19:04)
[2019-02-13] MEDS: MONTELUKAST 10 MG TABLET PO SCH (20:10)
[2019-02-13] MEDS: ACETAMINOPHEN 325 MG TABLET PO PRN (20:10)
[2019-02-13] MEDS ORDERED: ENOXAPARIN 40 MG/0.4 ML SYRINGE SUBCUT SCH (21:00)
[2019-02-13] MEDS: BUDESONIDE 0.25 MG/2 ML NEB RESP TX SCH (21:35)
[2019-02-14] MEDS: DEXAMETHASONE 4 MG/1 ML VIAL IV SCH (03:01)
[2019-02-14] MEDS: LEVOTHYROXINE 125 MCG TABLET PO SCH (06:15)
[2019-02-14 06:44] LABS: Calcium 8.7 MG/DL (8.5-10.1); Osmolality,Calculated 274.2 MOS/KG (273-304)
[2019-02-14] MEDS: BUDESONIDE 0.25 MG/2 ML NEB RESP TX SCH (07:22)
[2019-02-14] MEDS: ALBUTEROL 2.5 MG/3 ML NEB RESP TX SCH ×2 (07:22→12:16)
[2019-02-14] MEDS: ARFORMOTEROL 15 MCG/2 ML NEB RESP TX SCH (07:22)
[2019-02-14] MEDS: IPRATROPIUM 500 MCG/2.5 ML NEB RESP TX SCH (07:22)
[2019-02-14] MEDS: LACTOBACILLUS ACIDOPHILUS/BULGARICUS CAPLET PO SCH (09:10)
[2019-02-14] MEDS: ASPIRIN EC 81 MG TABLET PO SCH (09:10)
[2019-02-14] MEDS: SUCRALFATE 1 GM TABLET PO SCH ×2 (09:10→11:29)
[2019-02-14] MEDS: URSODIOL 300 MG CAPSULE PO SCH (09:10)
[2019-02-14] MEDS: DOCUSATE SODIUM 100 MG CAPSULE PO SCH (09:10)
[2019-02-14] MEDS: FUROSEMIDE 20 MG/2 ML VIAL IV SCH (09:10)
[2019-02-14] MEDS: LOSARTAN 50 MG TABLET PO SCH (09:10)
[2019-02-14 12:24] VITALS: BP 131/61
== END 2019-02-14 14:27 | disposition home health service (06) | DRG 871 ==
LOC: N.ED 10:19 → N.EDINP 15:12 → SUATTDRO 15:12 → N.ICU 17:45 → N.5E 02-12 10:08
PROVIDERS: ADMIT Internal Medicine; ATTEND Internal Medicine

== ENCOUNTER 2019-03-06 08:48 | Inpatient (IN) ==
[2019-03-06] MEDS ORDERED: SODIUM CHLORIDE 0.9% 1,000 ML IV STA (09:38)
[2019-03-06] MEDS ORDERED: LEVOFLOXACIN INJ 750 MG in PREMIX 1 EACH IV STA (09:41)
[2019-03-06] MEDS ORDERED: SODIUM CHLORIDE 0.9% 500 ML IV STA (09:41)
[2019-03-06 10:31] LABS: Basophils % 0.2 % (0.0-0.8); Eosinophils # 0.1 10*3/uL (0.0-0.87); Eosinophils % 0.4 % (0.00-10.9); Hemoglobin 10.2 GM/DL (12.0-16.0); Immature Granulocytes % 1.8 %; Immature Granulocytes Absolute 0.24 #; Lymphocytes # 1.8 10*3/uL (1.4-4.0); Lymphocytes % 13.4 % (21.3-54.2); Mean Corpuscular HGB Conc 31.9 GM/DL (32-36); Mean Platelet Volume 10.9 FL (9.6-12.0); Monocytes % 8.5 % (1.7-12.7); Neutrophils % 75.7 % (38.7-73.9); Platelet Count 170 T/CUMM (130-400); Red Blood Count 3.72 MC/CUMM (3.8-5.5); Red Cell Distribution Width 16.3 % (9.3-17.3); White Blood Count 13.3 T/CUMM (4-12)
[2019-03-06 10:38] LABS: Apearance,Urine CLEAR (Clear); Bacteria,Urine Occasional /HPF (Few); Bilirubin,Urine Negative (Negative); Blood, Urine Moderate mg/dL (Negative); Glucose,Urine (UA) Negative (Negative); Ketones,Urine Negative (Negative); Nitrite,Urine Negative (Negative); Protein,Urine Negative; RBC,Urine 109 /HPF (0-4); Squamous Epithelial Cell,Urine Occasional /HPF (0-10); Urine Color Straw (Yellow); Urine Specific Gravity 1.006 (1.001-1.035); Urine Urobilinogen < 2.0 EU/DL (0.2-1.0); WBC,Urine 145 /HPF (0-6)
[2019-03-06 10:48] LABS: Alanine Aminotransferase 19 U/L (13-56); Albumin 3.3 G/DL (3.4-5.0); Alkaline Phosphatase 103 U/L (45-117); Amylase 83 U/L (25-115); Aspartate Amino Transferase 11 U/L (0-37); Bilirubin,Total < 0.39 MG/DL (0.2-1.0); Blood Urea Nitrogen 11 MG/DL (7-18); Calcium 9.4 MG/DL (8.5-10.1); Glucose 92 MG/DL (74-106); Osmolality,Calculated 253.2 MOS/KG (273-304); Total Protein 6.9 G/DL (6.4-8.3)
[2019-03-06] MEDS ORDERED: ONDANSETRON 4 MG/2 ML VIAL IV PRN (11:35)
[2019-03-06] MEDS ORDERED: ACETAMINOPHEN 325 MG TABLET PO PRN (11:35)
[2019-03-06 11:41] LABS: Hypochromasia 2+; Ovalocytes Few; Polychromasia Slight
[2019-03-06 11:47] LABS: Microcytosis 2+; Platelet Estimate Adequate
[2019-03-06] MEDS ORDERED: CLORAZEPATE 3.75 MG TABLET PO PRN (15:00)
[2019-03-06] MEDS ORDERED: ALBUTEROL/IPRATROPIUM 3 ML NEB RESP TX PRN (15:00)
[2019-03-06] MEDS: MEROPENEM 1,000 MG in SODIUM CHLORIDE 0.9% 100 ML IV SCH (15:29)
[2019-03-06] MEDS: SODIUM CHLORIDE 0.9% 1,000 ML IV SCH (16:25)
[2019-03-06] MEDS: METOCLOPRAMIDE 10 MG TABLET PO SCH ×2 (17:50→21:03)
[2019-03-06] MEDS: SUCRALFATE 1 GM TABLET PO SCH ×2 (17:50→21:03)
[2019-03-06] MEDS: ARFORMOTEROL 15 MCG/2 ML NEB RESP TX SCH (19:43)
[2019-03-06] MEDS: URSODIOL 300 MG CAPSULE PO SCH (21:03)
[2019-03-06] MEDS: MAGNESIUM OXIDE 400 MG TABLET PO SCH (21:03)
[2019-03-06] MEDS: CETIRIZINE 10 MG TABLET PO SCH (21:03)
[2019-03-06] MEDS: SIMVASTATIN 40 MG TABLET PO SCH (21:03)
[2019-03-06] MEDS: MONTELUKAST 10 MG TABLET PO SCH (21:03)
[2019-03-06] MEDS: ACETAMINOPHEN 500 MG TABLET PO SCH (21:04)
[2019-03-07] MEDS: MEROPENEM 1,000 MG in SODIUM CHLORIDE 0.9% 100 ML IV SCH ×2 (03:17→14:30)
[2019-03-07 05:42] LABS: Basophils % 0.2 % (0.0-0.8); Eosinophils # 0.1 10*3/uL (0.0-0.87); Eosinophils % 0.7 % (0.00-10.9); Hematocrit 28.7 VOL% (35.7-47.0); Hemoglobin 8.9 GM/DL (12.0-16.0); Immature Granulocytes % 1.6 %; Immature Granulocytes Absolute 0.14 #; Lymphocytes # 2.4 10*3/uL (1.4-4.0); Lymphocytes % 27.2 % (21.3-54.2); Mean Corpuscular Volume 86.4 FL (87-102); Mean Platelet Volume 10.9 FL (9.6-12.0); Neutrophils % 58.3 % (38.7-73.9); Platelet Count 149 T/CUMM (130-400); Red Blood Count 3.32 MC/CUMM (3.8-5.5); Red Cell Distribution Width 16.4 % (9.3-17.3); White Blood Count 8.7 T/CUMM (4-12)
[2019-03-07 06:03] LABS: Calcium 8.5 MG/DL (8.5-10.1); Osmolality,Calculated 255.9 MOS/KG (273-304); Risk Ratio 2.44; VLDL CHOLESTEROL 16.2 MG/DL
[2019-03-07] MEDS: SUCRALFATE 1 GM TABLET PO SCH ×4 (06:42→21:39)
[2019-03-07] MEDS: METOCLOPRAMIDE 10 MG TABLET PO SCH ×4 (06:42→21:39)
[2019-03-07] MEDS: LEVOTHYROXINE 125 MCG TABLET PO SCH (06:42)
[2019-03-07] MEDS: ARFORMOTEROL 15 MCG/2 ML NEB RESP TX SCH ×2 (07:43→19:32)
[2019-03-07] MEDS ORDERED: MAGNESIUM SULF RIDER 4 GM in PREMIX 1 EACH IV PRN (08:02)
[2019-03-07] MEDS ORDERED: Saccharomyces Boulardii [Probiotic] 250 MG PO SCH (09:00)
[2019-03-07] MEDS: ASCORBIC ACID 500 MG TABLET PO SCH (09:25)
[2019-03-07] MEDS: SELENIUM 200 MCG TABLET PO SCH (09:25)
[2019-03-07] MEDS: ASPIRIN EC 81 MG TABLET PO SCH (09:25)
[2019-03-07] MEDS: CHOLECALCIFEROL 1,000 UNIT TABLET PO SCH (09:26)
[2019-03-07] MEDS: URSODIOL 300 MG CAPSULE PO SCH ×2 (09:26→21:39)
[2019-03-07] MEDS: PANTOPRAZOLE 40 MG TABLET PO SCH (09:26)
[2019-03-07] MEDS: MAGNESIUM SULF RIDER 2 GM in PREMIX 1 EACH IV PRN (09:26)
[2019-03-07] MEDS: MAGNESIUM OXIDE 400 MG TABLET PO SCH ×2 (09:26→21:40)
[2019-03-07] MEDS: SODIUM CHLORIDE 0.9% 1,000 ML IV SCH (14:30)
[2019-03-07] MEDS: SIMVASTATIN 40 MG TABLET PO SCH (21:40)
[2019-03-07] MEDS: CETIRIZINE 10 MG TABLET PO SCH (21:40)
[2019-03-07] MEDS: ACETAMINOPHEN 500 MG TABLET PO SCH (21:44)
[2019-03-07] MEDS: MONTELUKAST 10 MG TABLET PO SCH (21:44)
[2019-03-08] MEDS: MEROPENEM 1,000 MG in SODIUM CHLORIDE 0.9% 100 ML IV SCH (03:22)
[2019-03-08 05:45] LABS: Basophils % 0.2 % (0.0-0.8); Eosinophils # 0.1 10*3/uL (0.0-0.87); Eosinophils % 1.2 % (0.00-10.9); Hematocrit 28.7 VOL% (35.7-47.0); Hemoglobin 9.3 GM/DL (12.0-16.0); Immature Granulocytes % 2.3 %; Lymphocytes # 2.5 10*3/uL (1.4-4.0); Lymphocytes % 28.5 % (21.3-54.2); Mean Corpuscular HGB Conc 32.4 GM/DL (32-36); Mean Corpuscular Volume 86.2 FL (87-102); Mean Platelet Volume 11.1 FL (9.6-12.0); Monocytes % 11.7 % (1.7-12.7); Neutrophils % 56.1 % (38.7-73.9); Platelet Count 145 T/CUMM (130-400); Red Blood Count 3.33 MC/CUMM (3.8-5.5); Red Cell Distribution Width 16.7 % (9.3-17.3); White Blood Count 8.9 T/CUMM (4-12)
[2019-03-08 06:02] LABS: Calcium 7.9 MG/DL (8.5-10.1); Osmolality,Calculated 259.7 MOS/KG (273-304)
[2019-03-08] MEDS: SUCRALFATE 1 GM TABLET PO SCH ×4 (06:32→21:08)
[2019-03-08] MEDS: METOCLOPRAMIDE 10 MG TABLET PO SCH ×4 (06:32→21:08)
[2019-03-08] MEDS: LEVOTHYROXINE 125 MCG TABLET PO SCH (06:32)
[2019-03-08] MEDS: ARFORMOTEROL 15 MCG/2 ML NEB RESP TX SCH ×2 (07:19→19:13)
[2019-03-08] MEDS: MAGNESIUM OXIDE 400 MG TABLET PO SCH ×2 (09:21→21:07)
[2019-03-08] MEDS: URSODIOL 300 MG CAPSULE PO SCH ×2 (09:21→21:07)
[2019-03-08] MEDS: SELENIUM 200 MCG TABLET PO SCH (09:22)
[2019-03-08] MEDS: CHOLECALCIFEROL 1,000 UNIT TABLET PO SCH (09:22)
[2019-03-08] MEDS: ASPIRIN EC 81 MG TABLET PO SCH (09:22)
[2019-03-08] MEDS: predniSONE 5 MG TABLET PO SCH (09:22)
[2019-03-08] MEDS: PANTOPRAZOLE 40 MG TABLET PO SCH (09:22)
[2019-03-08] MEDS: ASCORBIC ACID 500 MG TABLET PO SCH (12:00)
[2019-03-08] MEDS: MAGNESIUM SULF RIDER 2 GM in PREMIX 1 EACH IV PRN (13:16)
[2019-03-08] MEDS: SODIUM CHLORIDE 0.9% 1,000 ML IV SCH (13:18)
[2019-03-08] MEDS: ERTAPENEM 1,000 MG in SODIUM CHLORIDE 0.9% 100 ML IV SCH (15:37)
[2019-03-08] MEDS: MONTELUKAST 10 MG TABLET PO SCH (21:08)
[2019-03-08] MEDS: SIMVASTATIN 40 MG TABLET PO SCH (21:08)
[2019-03-08] MEDS: ACETAMINOPHEN 500 MG TABLET PO SCH (21:12)
[2019-03-08] MEDS: CETIRIZINE 10 MG TABLET PO SCH (21:20)
[2019-03-09 05:21] LABS: Basophils % 0.1 % (0.0-0.8); Eosinophils # 0.1 10*3/uL (0.0-0.87); Eosinophils % 0.9 % (0.00-10.9); Hematocrit 28.6 VOL% (35.7-47.0); Hemoglobin 9.3 GM/DL (12.0-16.0); Immature Granulocytes % 1.6 %; Immature Granulocytes Absolute 0.15 #; Lymphocytes # 2.5 10*3/uL (1.4-4.0); Lymphocytes % 26.9 % (21.3-54.2); Mean Corpuscular HGB Conc 32.5 GM/DL (32-36); Mean Corpuscular Volume 85.4 FL (87-102); Mean Platelet Volume 11.1 FL (9.6-12.0); Monocytes % 10.9 % (1.7-12.7); Neutrophils % 59.6 % (38.7-73.9); Platelet Count 166 T/CUMM (130-400); Red Blood Count 3.35 MC/CUMM (3.8-5.5); Red Cell Distribution Width 16.3 % (9.3-17.3); White Blood Count 9.3 T/CUMM (4-12)
[2019-03-09 05:58] LABS: Calcium 8.5 MG/DL (8.5-10.1); Osmolality,Calculated 255.9 MOS/KG (273-304)
[2019-03-09] MEDS: LEVOTHYROXINE 125 MCG TABLET PO SCH (06:53)
[2019-03-09] MEDS: ARFORMOTEROL 15 MCG/2 ML NEB RESP TX SCH ×2 (07:11→19:42)
[2019-03-09] MEDS ORDERED: MAGNESIUM HYDROXIDE SUSP 30 ML UDCUP PO ONE (09:09)
[2019-03-09] MEDS: CHOLECALCIFEROL 1,000 UNIT TABLET PO SCH (09:10)
[2019-03-09] MEDS: MAGNESIUM OXIDE 400 MG TABLET PO SCH ×2 (09:10→20:47)
[2019-03-09] MEDS: URSODIOL 300 MG CAPSULE PO SCH ×2 (09:10→20:47)
[2019-03-09] MEDS: SUCRALFATE 1 GM TABLET PO SCH ×4 (09:10→20:47)
[2019-03-09] MEDS: METOCLOPRAMIDE 10 MG TABLET PO SCH ×4 (09:10→20:48)
[2019-03-09] MEDS: SELENIUM 200 MCG TABLET PO SCH (09:10)
[2019-03-09] MEDS: ASPIRIN EC 81 MG TABLET PO SCH (09:10)
[2019-03-09] MEDS: PANTOPRAZOLE 40 MG TABLET PO SCH (09:11)
[2019-03-09] MEDS: ASCORBIC ACID 500 MG TABLET PO SCH (09:11)
[2019-03-09] MEDS: CARBAMIDE PEROXIDE 6.5% OTIC SOLN 15 ML BOTTLE BOTH EARS SCH ×2 (11:33→20:49)
[2019-03-09] MEDS: SODIUM CHLORIDE 0.9% 1,000 ML IV SCH (14:27)
[2019-03-09] MEDS: ERTAPENEM 1,000 MG in SODIUM CHLORIDE 0.9% 100 ML IV SCH (15:04)
[2019-03-09] MEDS: CETIRIZINE 10 MG TABLET PO SCH (20:47)
[2019-03-09] MEDS: MONTELUKAST 10 MG TABLET PO SCH (20:47)
[2019-03-09] MEDS: SIMVASTATIN 40 MG TABLET PO SCH (20:47)
[2019-03-09] MEDS: ACETAMINOPHEN 500 MG TABLET PO SCH (20:47)
[2019-03-10 05:26] LABS: Calcium 8.5 MG/DL (8.5-10.1); Osmolality,Calculated 266.2 MOS/KG (273-304)
[2019-03-10] MEDS: LEVOTHYROXINE 125 MCG TABLET PO SCH (06:47)
[2019-03-10] MEDS: SUCRALFATE 1 GM TABLET PO SCH ×2 (07:35→12:15)
[2019-03-10] MEDS: METOCLOPRAMIDE 10 MG TABLET PO SCH ×2 (07:35→12:15)
[2019-03-10] MEDS: predniSONE 5 MG TABLET PO SCH (07:35)
[2019-03-10] MEDS: ARFORMOTEROL 15 MCG/2 ML NEB RESP TX SCH (07:49)
[2019-03-10] MEDS: SELENIUM 200 MCG TABLET PO SCH (09:39)
[2019-03-10] MEDS: ASPIRIN EC 81 MG TABLET PO SCH (09:39)
[2019-03-10] MEDS: MAGNESIUM OXIDE 400 MG TABLET PO SCH (09:39)
[2019-03-10] MEDS: ASCORBIC ACID 500 MG TABLET PO SCH (09:39)
[2019-03-10] MEDS: URSODIOL 300 MG CAPSULE PO SCH (09:39)
[2019-03-10] MEDS: PANTOPRAZOLE 40 MG TABLET PO SCH (09:39)
[2019-03-10] MEDS: CARBAMIDE PEROXIDE 6.5% OTIC SOLN 15 ML BOTTLE BOTH EARS SCH (09:40)
[2019-03-10] MEDS: CHOLECALCIFEROL 1,000 UNIT TABLET PO SCH (10:07)
[2019-03-10] MEDS: ERTAPENEM 1,000 MG in SODIUM CHLORIDE 0.9% 100 ML IV SCH (14:20)
[2019-03-10 16:09] VITALS: BP 110/59
== END 2019-03-10 17:35 | disposition home health service (06) | DRG 690 ==
LOC: EDUNIT# → N.ED 08:48 → SUATTDRO 11:34 → N.EDINP 11:34 → N.5E 14:12
PROVIDERS: ADMIT Internal Medicine; ATTEND Hospitalist

== ENCOUNTER 2019-03-30 11:14 | Inpatient (IN) ==
[2019-03-30] MEDS ORDERED: SODIUM CHLORIDE 0.9% 1,000 ML IV STA ×2 (11:44→12:48)
[2019-03-30] MEDS ORDERED: ACETAMINOPHEN 500 MG TABLET PO STA (11:44)
[2019-03-30] MEDS ORDERED: ONDANSETRON 4 MG/2 ML VIAL IV STA (11:46)
[2019-03-30 11:52] LABS: Basophils # 0.1 10*3/uL (0.0-0.2); Basophils % 0.3 % (0.0-0.8); Eosinophils # 0.2 10*3/uL (0.0-0.87); Eosinophils % 0.7 % (0.00-10.9); Hematocrit 33.6 VOL% (35.7-47.0); Hemoglobin 10.4 GM/DL (12.0-16.0); Immature Granulocytes % 1.3 %; Immature Granulocytes Absolute 0.28 #; Lymphocytes % 9.4 % (21.3-54.2); Mean Corpuscular Volume 85.5 FL (87-102); Mean Platelet Volume 10.7 FL (9.6-12.0); Monocytes % 8.8 % (1.7-12.7); Neutrophils % 79.5 % (38.7-73.9); Platelet Count 230 T/CUMM (130-400); Red Blood Count 3.93 MC/CUMM (3.8-5.5); Red Cell Distribution Width 15.6 % (9.3-17.3)
[2019-03-30 11:56] LABS: PT Patient Result 10.8 SECS
[2019-03-30 12:05] LABS: Apearance,Urine CLOUDY (Clear); Bilirubin,Urine Negative (Negative); Blood, Urine Moderate mg/dL (Negative); Glucose,Urine (UA) Negative (Negative); Ketones,Urine Negative (Negative); Nitrite,Urine Negative (Negative); Protein,Urine Negative; RBC,Urine 168 /HPF (0-4); Urine Color Yellow (Yellow); Urine Specific Gravity 1.012 (1.001-1.035); Urine Urobilinogen < 2.0 EU/DL (0.2-1.0); WBC,Urine 451 /HPF (0-6)
[2019-03-30 12:08] LABS: Albumin 3.4 G/DL (3.4-5.0); Bilirubin,Total 0.6 MG/DL (0.2-1.0); Calcium 9.6 MG/DL (8.5-10.1)
[2019-03-30 12:16] LABS: Hypochromasia 1+; Lymphocytes 6 % (20-55); Platelet Estimate Adequate; Segmented Neutrophils 87 % (50-85); Total Cells Counted 100
[2019-03-30 12:22] LABS: ABG Base Excess 1.1 MMOL/L (-2.5-2.5); ABG HCO3 25.4 MMOL/L (20-26); ABG Oxygen Saturation 97.8 % (95-100); ABG PCO2 35.9 MM HG (35-48); ABG PH 7.449 (7.35-7.45); ABG PO2 97.4 MM HG (80-95); ABG TCO2 22.5 MMOL/L (23-27)
[2019-03-30] MEDS ORDERED: LEVOFLOXACIN INJ 500 MG in PREMIX 1 EACH IV STA (12:47)
[2019-03-30] MEDS ORDERED: BISACODYL 5 MG TABLET PO PRN (14:32)
[2019-03-30] MEDS ORDERED: LACTULOSE 20 GM/30 ML UDCUP PO PRN (14:32)
[2019-03-30] MEDS ORDERED: ONDANSETRON 4 MG/2 ML VIAL IV PRN (14:32)
[2019-03-30] MEDS ORDERED: ALBUTEROL/IPRATROPIUM 3 ML NEB RESP TX PRN (14:41)
[2019-03-30] MEDS ORDERED: CLORAZEPATE 3.75 MG TABLET PO PRN (14:44)
[2019-03-30] MEDS ORDERED: traMADol 50 MG TABLET PO PRN (14:44)
[2019-03-30] MEDS ORDERED: SODIUM CHLORIDE 0.9% 1,000 ML IV SCH (15:00)
[2019-03-30 15:17] LABS: Risk Ratio 2.09; Thyroid Stimulating Hormone 0.808 uIU/ml (0.358-3.74); VLDL CHOLESTEROL 18.6 MG/DL
[2019-03-30] MEDS: SUCRALFATE 1 GM TABLET PO SCH ×2 (15:53→22:35)
[2019-03-30] MEDS: PANTOPRAZOLE 40 MG TABLET PO SCH (15:53)
[2019-03-30] MEDS: MEROPENEM 1,000 MG in SYRINGE 1 EACH IV SCH ×2 (15:53→22:38)
[2019-03-30] MEDS: ENOXAPARIN 40 MG/0.4 ML SYRINGE SUBCUT SCH (15:53)
[2019-03-30] MEDS: POTASSIUM CHLORIDE RIDER 10 MEQ in PREMIX 1 EACH IV SCH ×2 (16:01→17:56)
[2019-03-30] MEDS ORDERED: METOCLOPRAMIDE 10 MG TABLET PO SCH (16:30)
[2019-03-30] MEDS ORDERED: MAGNESIUM SULF RIDER 2 GM in PREMIX 1 EACH IV ONE (17:15)
[2019-03-30] MEDS: SODIUM CHLOR 0.9% KCL 20 MEQ 20 MEQ/1,000 ML BAG IV SCH (17:57)
[2019-03-30] MEDS: ALBUTEROL 2.5 MG/3 ML NEB RESP TX SCH (18:30)
[2019-03-30] MEDS: IPRATROPIUM 500 MCG/2.5 ML NEB RESP TX SCH (18:30)
[2019-03-30] MEDS: BUDESONIDE 0.25 MG/2 ML NEB RESP TX SCH (18:30)
[2019-03-30] MEDS: ARFORMOTEROL 15 MCG/2 ML NEB RESP TX SCH (18:30)
[2019-03-30] MEDS: SIMVASTATIN 40 MG TABLET PO SCH (22:35)
[2019-03-30] MEDS: MONTELUKAST 10 MG TABLET PO SCH (22:35)
[2019-03-30] MEDS: CETIRIZINE 10 MG TABLET PO SCH (22:35)
[2019-03-30] MEDS: MAGNESIUM OXIDE 400 MG TABLET PO SCH (22:35)
[2019-03-30] MEDS: URSODIOL 300 MG CAPSULE PO SCH (22:35)
[2019-03-31] MEDS: ALBUTEROL 2.5 MG/3 ML NEB RESP TX SCH ×2 (00:35→07:20)
[2019-03-31 05:55] LABS: Basophils % 0.3 % (0.0-0.8); Eosinophils # 0.1 10*3/uL (0.0-0.87); Eosinophils % 0.8 % (0.00-10.9); Hematocrit 26.8 VOL% (35.7-47.0); Hemoglobin 8.4 GM/DL (12.0-16.0); Immature Granulocytes % 1.4 %; Immature Granulocytes Absolute 0.12 #; Lymphocytes # 1.6 10*3/uL (1.4-4.0); Lymphocytes % 18.6 % (21.3-54.2); Mean Corpuscular HGB Conc 31.3 GM/DL (32-36); Mean Corpuscular Volume 85.4 FL (87-102); Mean Platelet Volume 11.2 FL (9.6-12.0); Monocytes % 10.2 % (1.7-12.7); Neutrophils % 68.7 % (38.7-73.9); Platelet Count 179 T/CUMM (130-400); Red Blood Count 3.14 MC/CUMM (3.8-5.5); Red Cell Distribution Width 15.9 % (9.3-17.3); White Blood Count 8.7 T/CUMM (4-12)
[2019-03-31] MEDS: LEVOTHYROXINE 125 MCG TABLET PO SCH (06:09)
[2019-03-31] MEDS: MEROPENEM 1,000 MG in SYRINGE 1 EACH IV SCH ×2 (06:10→15:39)
[2019-03-31 06:14] LABS: Calcium 8.9 MG/DL (8.5-10.1); Osmolality,Calculated 273.8 MOS/KG (273-304)
[2019-03-31] MEDS: BUDESONIDE 0.25 MG/2 ML NEB RESP TX SCH ×2 (07:20→19:55)
[2019-03-31] MEDS: ARFORMOTEROL 15 MCG/2 ML NEB RESP TX SCH ×2 (07:20→19:55)
[2019-03-31] MEDS: IPRATROPIUM 500 MCG/2.5 ML NEB RESP TX SCH (07:20)
[2019-03-31] MEDS ORDERED: POTASSIUM CHLORIDE 20 MEQ TABLET PO ONE (07:37)
[2019-03-31] MEDS ORDERED: ALBUTEROL 2.5 MG/3 ML NEB RESP TX PRN (08:39)
[2019-03-31] MEDS ORDERED: metOLazone 2.5 MG TABLET PO SCH (09:00)
[2019-03-31] MEDS: PANTOPRAZOLE 40 MG TABLET PO SCH (09:04)
[2019-03-31] MEDS: CHOLECALCIFEROL 1,000 UNIT TABLET PO SCH (09:04)
[2019-03-31] MEDS: SELENIUM 200 MCG TABLET PO SCH (09:04)
[2019-03-31] MEDS: URSODIOL 300 MG CAPSULE PO SCH ×2 (09:05→21:49)
[2019-03-31] MEDS: ASPIRIN EC 81 MG TABLET PO SCH (09:05)
[2019-03-31] MEDS: MAGNESIUM OXIDE 400 MG TABLET PO SCH ×2 (09:05→21:49)
[2019-03-31] MEDS: ASCORBIC ACID 500 MG TABLET PO SCH (09:05)
[2019-03-31] MEDS: SUCRALFATE 1 GM TABLET PO SCH ×4 (09:06→21:49)
[2019-03-31] MEDS: METOCLOPRAMIDE 10 MG TABLET PO SCH ×3 (09:06→17:06)
[2019-03-31] MEDS: LACTOBACILLUS ACIDOPHILUS/BULGARICUS CHEW TABLET PO SCH (10:09)
[2019-03-31] MEDS: BENZONATATE 100 MG CAPSULE PO SCH ×3 (11:30→21:49)
[2019-03-31] MEDS: ALBUTEROL/IPRATROPIUM 3 ML NEB RESP TX SCH ×2 (14:10→19:55)
[2019-03-31] MEDS: DORNASE ALFA 2.5 MG/2.5 ML VIAL RESP TX SCH ×2 (14:10→19:55)
[2019-03-31] MEDS ORDERED: POTASSIUM CHLORIDE RIDER 10 MEQ in PREMIX 1 EACH IV ONE (15:14)
[2019-03-31] MEDS: SODIUM CHLOR 0.9% KCL 20 MEQ 20 MEQ/1,000 ML BAG IV SCH (15:39)
[2019-03-31] MEDS: ENOXAPARIN 40 MG/0.4 ML SYRINGE SUBCUT SCH (15:41)
[2019-03-31] MEDS: LEVOFLOXACIN INJ 500 MG in PREMIX 1 EACH IV SCH (15:56)
[2019-03-31] MEDS: SIMVASTATIN 40 MG TABLET PO SCH (21:49)
[2019-03-31] MEDS: CETIRIZINE 10 MG TABLET PO SCH (21:49)
[2019-03-31] MEDS: MONTELUKAST 10 MG TABLET PO SCH (21:50)
[2019-04-01] MEDS: MEROPENEM 1,000 MG in SYRINGE 1 EACH IV SCH ×4 (00:17→23:18)
[2019-04-01] MEDS: ALBUTEROL/IPRATROPIUM 3 ML NEB RESP TX SCH ×4 (01:50→20:14)
[2019-04-01 05:45] LABS: Basophils % 0.2 % (0.0-0.8); Eosinophils % 0.4 % (0.00-10.9); Hematocrit 29.3 VOL% (35.7-47.0); Hemoglobin 8.8 GM/DL (12.0-16.0); Immature Granulocytes % 1.3 %; Immature Granulocytes Absolute 0.14 #; Lymphocytes # 1.1 10*3/uL (1.4-4.0); Lymphocytes % 10.8 % (21.3-54.2); Mean Corpuscular Volume 88.3 FL (87-102); Monocytes % 10.5 % (1.7-12.7); Neutrophils % 76.8 % (38.7-73.9); Platelet Count 186 T/CUMM (130-400); Red Blood Count 3.32 MC/CUMM (3.8-5.5); Red Cell Distribution Width 15.7 % (9.3-17.3); White Blood Count 10.5 T/CUMM (4-12)
[2019-04-01 05:58] LABS: Osmolality,Calculated 275.8 MOS/KG (273-304)
[2019-04-01 06:28] LABS: Folate 14.8 NG/ML (5.4-24.0)
[2019-04-01] MEDS: DORNASE ALFA 2.5 MG/2.5 ML VIAL RESP TX SCH ×2 (06:53→20:24)
[2019-04-01] MEDS: ARFORMOTEROL 15 MCG/2 ML NEB RESP TX SCH ×2 (06:53→20:14)
[2019-04-01] MEDS: BUDESONIDE 0.25 MG/2 ML NEB RESP TX SCH ×2 (06:53→20:14)
[2019-04-01] MEDS: LEVOTHYROXINE 125 MCG TABLET PO SCH (06:58)
[2019-04-01] MEDS: ASPIRIN EC 81 MG TABLET PO SCH (09:19)
[2019-04-01] MEDS: SELENIUM 200 MCG TABLET PO SCH (09:20)
[2019-04-01] MEDS: SUCRALFATE 1 GM TABLET PO SCH ×4 (09:20→20:48)
[2019-04-01] MEDS: predniSONE 5 MG TABLET PO SCH (09:20)
[2019-04-01] MEDS: CHOLECALCIFEROL 1,000 UNIT TABLET PO SCH (09:20)
[2019-04-01] MEDS: METOCLOPRAMIDE 10 MG TABLET PO SCH ×3 (09:20→16:48)
[2019-04-01] MEDS: ASCORBIC ACID 500 MG TABLET PO SCH (09:21)
[2019-04-01] MEDS: BENZONATATE 100 MG CAPSULE PO SCH ×3 (09:21→20:48)
[2019-04-01] MEDS: MAGNESIUM OXIDE 400 MG TABLET PO SCH ×2 (09:21→20:48)
[2019-04-01] MEDS: URSODIOL 300 MG CAPSULE PO SCH ×2 (09:21→20:48)
[2019-04-01] MEDS: PANTOPRAZOLE 40 MG TABLET PO SCH (09:21)
[2019-04-01] MEDS ORDERED: FUROSEMIDE 40 MG/4 ML VIAL IV ONE (09:59)
[2019-04-01] MEDS: LACTOBACILLUS ACIDOPHILUS/BULGARICUS CHEW TABLET PO SCH (10:01)
[2019-04-01] MEDS: metOLazone 2.5 MG TABLET PO SCH (11:00)
[2019-04-01] MEDS: FERROUS SULFATE 325 MG TABLET PO SCH ×2 (11:00→20:49)
[2019-04-01] MEDS: LEVOFLOXACIN INJ 500 MG in PREMIX 1 EACH IV SCH (14:59)
[2019-04-01] MEDS: ENOXAPARIN 40 MG/0.4 ML SYRINGE SUBCUT SCH (15:01)
[2019-04-01] MEDS: CETIRIZINE 10 MG TABLET PO SCH (20:48)
[2019-04-01] MEDS: SIMVASTATIN 40 MG TABLET PO SCH (20:48)
[2019-04-01] MEDS: MONTELUKAST 10 MG TABLET PO SCH (20:49)
[2019-04-01] MEDS: SODIUM CHLOR 0.9% KCL 20 MEQ 20 MEQ/1,000 ML BAG IV SCH (20:50)
[2019-04-02] MEDS: ALBUTEROL/IPRATROPIUM 3 ML NEB RESP TX SCH ×4 (01:46→19:37)
[2019-04-02 05:30] LABS: Basophils % 0.1 % (0.0-0.8); Eosinophils % 0.5 % (0.00-10.9); Hematocrit 27.8 VOL% (35.7-47.0); Hemoglobin 8.5 GM/DL (12.0-16.0); Immature Granulocytes Absolute 0.08 #; Lymphocytes # 1.7 10*3/uL (1.4-4.0); Lymphocytes % 20.5 % (21.3-54.2); Mean Corpuscular HGB Conc 30.6 GM/DL (32-36); Mean Corpuscular Volume 86.1 FL (87-102); Mean Platelet Volume 10.7 FL (9.6-12.0); Monocytes % 10.5 % (1.7-12.7); Neutrophils % 67.4 % (38.7-73.9); Platelet Count 179 T/CUMM (130-400); Red Blood Count 3.23 MC/CUMM (3.8-5.5); Red Cell Distribution Width 15.4 % (9.3-17.3); White Blood Count 8.3 T/CUMM (4-12)
[2019-04-02] MEDS: LEVOTHYROXINE 125 MCG TABLET PO SCH (05:52)
[2019-04-02] MEDS: MEROPENEM 1,000 MG in SYRINGE 1 EACH IV SCH ×3 (06:00→23:27)
[2019-04-02 06:02] LABS: Osmolality,Calculated 267.2 MOS/KG (273-304)
[2019-04-02] MEDS: BUDESONIDE 0.25 MG/2 ML NEB RESP TX SCH ×2 (07:42→19:37)
[2019-04-02] MEDS: DORNASE ALFA 2.5 MG/2.5 ML VIAL RESP TX SCH ×2 (07:43→19:37)
[2019-04-02] MEDS: ARFORMOTEROL 15 MCG/2 ML NEB RESP TX SCH ×2 (07:43→19:37)
[2019-04-02] MEDS: ASPIRIN EC 81 MG TABLET PO SCH (09:52)
[2019-04-02] MEDS: URSODIOL 300 MG CAPSULE PO SCH ×2 (09:52→21:23)
[2019-04-02] MEDS: MAGNESIUM OXIDE 400 MG TABLET PO SCH ×3 (09:52→21:22)
[2019-04-02] MEDS: PANTOPRAZOLE 40 MG TABLET PO SCH (09:52)
[2019-04-02] MEDS: METOCLOPRAMIDE 10 MG TABLET PO SCH ×3 (09:52→17:13)
[2019-04-02] MEDS: FERROUS SULFATE 325 MG TABLET PO SCH ×2 (09:53→21:23)
[2019-04-02] MEDS: SUCRALFATE 1 GM TABLET PO SCH ×4 (09:53→21:23)
[2019-04-02] MEDS: metOLazone 2.5 MG TABLET PO SCH (09:53)
[2019-04-02] MEDS: SELENIUM 200 MCG TABLET PO SCH (09:53)
[2019-04-02] MEDS: CHOLECALCIFEROL 1,000 UNIT TABLET PO SCH (09:53)
[2019-04-02] MEDS: BENZONATATE 100 MG CAPSULE PO SCH ×3 (09:53→21:22)
[2019-04-02] MEDS: ASCORBIC ACID 500 MG TABLET PO SCH (09:53)
[2019-04-02] MEDS: POLYETHYLENE GLYCOL POWDER 17 GM PACK PO SCH (09:53)
[2019-04-02] MEDS: LACTOBACILLUS ACIDOPHILUS/BULGARICUS CHEW TABLET PO SCH (10:07)
[2019-04-02] MEDS ORDERED: FUROSEMIDE 20 MG/2 ML VIAL IV ONE (10:27)
[2019-04-02] MEDS: LEVOFLOXACIN INJ 500 MG in PREMIX 1 EACH IV SCH (16:50)
[2019-04-02] MEDS: ENOXAPARIN 40 MG/0.4 ML SYRINGE SUBCUT SCH (16:51)
[2019-04-02] MEDS: CETIRIZINE 10 MG TABLET PO SCH (21:22)
[2019-04-02] MEDS: SIMVASTATIN 40 MG TABLET PO SCH (21:23)
[2019-04-02] MEDS: MONTELUKAST 10 MG TABLET PO SCH (21:23)
[2019-04-03] MEDS: ALBUTEROL/IPRATROPIUM 3 ML NEB RESP TX SCH ×4 (01:20→20:10)
[2019-04-03 06:17] LABS: Basophils % 0.3 % (0.0-0.8); Eosinophils # 0.1 10*3/uL (0.0-0.87); Hematocrit 30.6 VOL% (35.7-47.0); Hemoglobin 9.4 GM/DL (12.0-16.0); Immature Granulocytes Absolute 0.18 #; Lymphocytes % 22.9 % (21.3-54.2); Mean Corpuscular HGB Conc 30.7 GM/DL (32-36); Mean Corpuscular Volume 85.7 FL (87-102); Mean Platelet Volume 11.1 FL (9.6-12.0); Monocytes % 12.3 % (1.7-12.7); Neutrophils % 61.5 % (38.7-73.9); Platelet Count 198 T/CUMM (130-400); Red Blood Count 3.57 MC/CUMM (3.8-5.5); Red Cell Distribution Width 15.6 % (9.3-17.3); White Blood Count 8.8 T/CUMM (4-12)
[2019-04-03] MEDS: LEVOTHYROXINE 125 MCG TABLET PO SCH (06:18)
[2019-04-03] MEDS: MEROPENEM 1,000 MG in SYRINGE 1 EACH IV SCH ×3 (06:18→22:21)
[2019-04-03 06:21] LABS: Calcium 9.1 MG/DL (8.5-10.1); Osmolality,Calculated 264.4 MOS/KG (273-304)
[2019-04-03] MEDS: SODIUM CHLOR 0.9% KCL 20 MEQ 20 MEQ/1,000 ML BAG IV SCH (06:28)
[2019-04-03] MEDS: BUDESONIDE 0.25 MG/2 ML NEB RESP TX SCH ×2 (07:37→20:10)
[2019-04-03] MEDS: ARFORMOTEROL 15 MCG/2 ML NEB RESP TX SCH ×2 (07:38→20:20)
[2019-04-03] MEDS: DORNASE ALFA 2.5 MG/2.5 ML VIAL RESP TX SCH ×2 (07:38→20:25)
[2019-04-03] MEDS ORDERED: MAGNESIUM SULF RIDER 2 GM in PREMIX 1 EACH IV ONE (07:43)
[2019-04-03] MEDS: metOLazone 2.5 MG TABLET PO SCH (08:57)
[2019-04-03] MEDS: METOCLOPRAMIDE 10 MG TABLET PO SCH ×4 (08:57→18:50)
[2019-04-03] MEDS: CHOLECALCIFEROL 1,000 UNIT TABLET PO SCH (08:58)
[2019-04-03] MEDS: predniSONE 5 MG TABLET PO SCH (08:58)
[2019-04-03] MEDS: ASPIRIN EC 81 MG TABLET PO SCH (08:58)
[2019-04-03] MEDS: URSODIOL 300 MG CAPSULE PO SCH ×2 (08:58→21:23)
[2019-04-03] MEDS: ASCORBIC ACID 500 MG TABLET PO SCH (08:58)
[2019-04-03] MEDS: POTASSIUM CHLORIDE 20 MEQ TABLET PO PRN ×2 (08:59→15:22)
[2019-04-03] MEDS: FERROUS SULFATE 325 MG TABLET PO SCH ×2 (08:59→21:23)
[2019-04-03] MEDS: PANTOPRAZOLE 40 MG TABLET PO SCH (08:59)
[2019-04-03] MEDS: BENZONATATE 100 MG CAPSULE PO SCH ×3 (08:59→21:22)
[2019-04-03] MEDS: SUCRALFATE 1 GM TABLET PO SCH ×5 (08:59→21:22)
[2019-04-03] MEDS: SELENIUM 200 MCG TABLET PO SCH (08:59)
[2019-04-03] MEDS: POLYETHYLENE GLYCOL POWDER 17 GM PACK PO SCH (09:00)
[2019-04-03] MEDS: LACTOBACILLUS ACIDOPHILUS/BULGARICUS CHEW TABLET PO SCH (09:00)
[2019-04-03] MEDS: LEVOFLOXACIN INJ 500 MG in PREMIX 1 EACH IV SCH (15:11)
[2019-04-03] MEDS: ENOXAPARIN 40 MG/0.4 ML SYRINGE SUBCUT SCH (15:20)
[2019-04-03] MEDS: ACETAMINOPHEN 325 MG TABLET PO PRN (21:21)
[2019-04-03] MEDS: MONTELUKAST 10 MG TABLET PO SCH (21:22)
[2019-04-03] MEDS: CETIRIZINE 10 MG TABLET PO SCH (21:23)
[2019-04-03] MEDS: SIMVASTATIN 40 MG TABLET PO SCH (21:23)
[2019-04-03] MEDS: MAGNESIUM OXIDE 400 MG TABLET PO SCH (21:24)
[2019-04-04] MEDS: ALBUTEROL/IPRATROPIUM 3 ML NEB RESP TX SCH ×4 (01:40→19:02)
[2019-04-04 03:27] LABS: Basophils % 0.2 % (0.0-0.8); Eosinophils # 0.1 10*3/uL (0.0-0.87); Hematocrit 28.8 VOL% (35.7-47.0); Hemoglobin 9.1 GM/DL (12.0-16.0); Immature Granulocytes % 1.3 %; Immature Granulocytes Absolute 0.12 #; Lymphocytes # 2.2 10*3/uL (1.4-4.0); Mean Corpuscular HGB Conc 31.6 GM/DL (32-36); Mean Platelet Volume 11.2 FL (9.6-12.0); Monocytes % 12.5 % (1.7-12.7); Platelet Count 195 T/CUMM (130-400); Red Blood Count 3.43 MC/CUMM (3.8-5.5); Red Cell Distribution Width 15.6 % (9.3-17.3); White Blood Count 8.9 T/CUMM (4-12)
[2019-04-04 03:55] LABS: Calcium 8.8 MG/DL (8.5-10.1); Osmolality,Calculated 261.7 MOS/KG (273-304)
[2019-04-04] MEDS: LEVOTHYROXINE 125 MCG TABLET PO SCH (06:06)
[2019-04-04] MEDS: MEROPENEM 1,000 MG in SYRINGE 1 EACH IV SCH ×3 (06:07→23:33)
[2019-04-04] MEDS: DORNASE ALFA 2.5 MG/2.5 ML VIAL RESP TX SCH ×2 (07:15→19:02)
[2019-04-04] MEDS: BUDESONIDE 0.25 MG/2 ML NEB RESP TX SCH ×2 (07:15→19:02)
[2019-04-04] MEDS: ARFORMOTEROL 15 MCG/2 ML NEB RESP TX SCH ×2 (07:15→19:02)
[2019-04-04] MEDS: SUCRALFATE 1 GM TABLET PO SCH ×4 (09:36→20:44)
[2019-04-04] MEDS: metOLazone 2.5 MG TABLET PO SCH (09:36)
[2019-04-04] MEDS: SELENIUM 200 MCG TABLET PO SCH (09:36)
[2019-04-04] MEDS: LACTOBACILLUS ACIDOPHILUS/BULGARICUS CHEW TABLET PO SCH (09:36)
[2019-04-04] MEDS: CHOLECALCIFEROL 1,000 UNIT TABLET PO SCH (09:36)
[2019-04-04] MEDS: PANTOPRAZOLE 40 MG TABLET PO SCH (09:36)
[2019-04-04] MEDS: URSODIOL 300 MG CAPSULE PO SCH ×2 (09:36→20:43)
[2019-04-04] MEDS: METOCLOPRAMIDE 10 MG TABLET PO SCH ×3 (09:37→15:37)
[2019-04-04] MEDS: ASPIRIN EC 81 MG TABLET PO SCH (09:37)
[2019-04-04] MEDS: ASCORBIC ACID 500 MG TABLET PO SCH (09:37)
[2019-04-04] MEDS: BENZONATATE 100 MG CAPSULE PO SCH ×3 (09:37→20:44)
[2019-04-04] MEDS: MAGNESIUM OXIDE 400 MG TABLET PO SCH ×3 (09:37→20:44)
[2019-04-04] MEDS: FERROUS SULFATE 325 MG TABLET PO SCH ×2 (09:37→20:44)
[2019-04-04] MEDS: POLYETHYLENE GLYCOL POWDER 17 GM PACK PO SCH (09:38)
[2019-04-04] MEDS: ENOXAPARIN 40 MG/0.4 ML SYRINGE SUBCUT SCH (15:38)
[2019-04-04] MEDS: LEVOFLOXACIN INJ 500 MG in PREMIX 1 EACH IV SCH (15:38)
[2019-04-04] MEDS: MONTELUKAST 10 MG TABLET PO SCH (20:43)
[2019-04-04] MEDS: SIMVASTATIN 40 MG TABLET PO SCH (20:44)
[2019-04-04] MEDS: ACETAMINOPHEN 325 MG TABLET PO PRN (20:44)
[2019-04-04] MEDS: CETIRIZINE 10 MG TABLET PO SCH (20:44)
[2019-04-05] MEDS: ALBUTEROL/IPRATROPIUM 3 ML NEB RESP TX SCH ×4 (01:14→19:35)
[2019-04-05 04:55] LABS: Basophils % 0.3 % (0.0-0.8); Eosinophils # 0.1 10*3/uL (0.0-0.87); Eosinophils % 0.6 % (0.00-10.9); Hematocrit 31.9 VOL% (35.7-47.0); Hemoglobin 9.6 GM/DL (12.0-16.0); Immature Granulocytes % 1.6 %; Immature Granulocytes Absolute 0.15 #; Lymphocytes # 2.5 10*3/uL (1.4-4.0); Lymphocytes % 26.7 % (21.3-54.2); Mean Corpuscular HGB Conc 30.1 GM/DL (32-36); Mean Corpuscular Volume 86.2 FL (87-102); Mean Platelet Volume 10.9 FL (9.6-12.0); Neutrophils % 57.8 % (38.7-73.9); Platelet Count 220 T/CUMM (130-400); Red Cell Distribution Width 15.7 % (9.3-17.3); White Blood Count 9.3 T/CUMM (4-12)
[2019-04-05 05:17] LABS: Calcium 9.7 MG/DL (8.5-10.1); Osmolality,Calculated 262.7 MOS/KG (273-304)
[2019-04-05 05:19] LABS: Calcium 9.4 MG/DL (8.5-10.1); Osmolality,Calculated 262.7 MOS/KG (273-304)
[2019-04-05] MEDS: LEVOTHYROXINE 125 MCG TABLET PO SCH (06:15)
[2019-04-05] MEDS: BUDESONIDE 0.25 MG/2 ML NEB RESP TX SCH ×2 (07:24→19:35)
[2019-04-05] MEDS: ARFORMOTEROL 15 MCG/2 ML NEB RESP TX SCH ×2 (07:24→19:35)
[2019-04-05] MEDS: MEROPENEM 1,000 MG in SYRINGE 1 EACH IV SCH ×3 (07:32→22:24)
[2019-04-05] MEDS: METOCLOPRAMIDE 10 MG TABLET PO SCH ×3 (07:32→16:38)
[2019-04-05] MEDS: SUCRALFATE 1 GM TABLET PO SCH ×4 (07:32→20:54)
[2019-04-05] MEDS: predniSONE 5 MG TABLET PO SCH (07:32)
[2019-04-05] MEDS: DORNASE ALFA 2.5 MG/2.5 ML VIAL RESP TX SCH ×2 (07:37→19:35)
[2019-04-05] MEDS: ASPIRIN EC 81 MG TABLET PO SCH (08:34)
[2019-04-05] MEDS: SELENIUM 200 MCG TABLET PO SCH (08:34)
[2019-04-05] MEDS: POLYETHYLENE GLYCOL POWDER 17 GM PACK PO SCH (08:34)
[2019-04-05] MEDS: URSODIOL 300 MG CAPSULE PO SCH ×2 (08:34→20:54)
[2019-04-05] MEDS: metOLazone 2.5 MG TABLET PO SCH (08:34)
[2019-04-05] MEDS: FERROUS SULFATE 325 MG TABLET PO SCH ×2 (08:34→20:54)
[2019-04-05] MEDS: CHOLECALCIFEROL 1,000 UNIT TABLET PO SCH (08:34)
[2019-04-05] MEDS: LACTOBACILLUS ACIDOPHILUS/BULGARICUS CHEW TABLET PO SCH (08:35)
[2019-04-05] MEDS: BENZONATATE 100 MG CAPSULE PO SCH ×3 (08:35→20:54)
[2019-04-05] MEDS: PANTOPRAZOLE 40 MG TABLET PO SCH (08:35)
[2019-04-05] MEDS: ASCORBIC ACID 500 MG TABLET PO SCH (08:35)
[2019-04-05] MEDS: MAGNESIUM OXIDE 400 MG TABLET PO SCH ×3 (08:35→20:54)
[2019-04-05] MEDS: LEVOFLOXACIN INJ 500 MG in PREMIX 1 EACH IV SCH (16:37)
[2019-04-05] MEDS: ENOXAPARIN 40 MG/0.4 ML SYRINGE SUBCUT SCH (16:38)
[2019-04-05] MEDS: CETIRIZINE 10 MG TABLET PO SCH (20:53)
[2019-04-05] MEDS: MONTELUKAST 10 MG TABLET PO SCH (20:54)
[2019-04-05] MEDS: SIMVASTATIN 40 MG TABLET PO SCH (20:54)
[2019-04-05] MEDS: ACETAMINOPHEN 325 MG TABLET PO PRN (22:24)
[2019-04-06] MEDS: ALBUTEROL/IPRATROPIUM 3 ML NEB RESP TX SCH ×4 (01:04→19:23)
[2019-04-06 04:57] LABS: Basophils % 0.3 % (0.0-0.8); Eosinophils # 0.1 10*3/uL (0.0-0.87); Hematocrit 30.3 VOL% (35.7-47.0); Hemoglobin 9.5 GM/DL (12.0-16.0); Immature Granulocytes % 1.7 %; Immature Granulocytes Absolute 0.17 #; Lymphocytes # 2.7 10*3/uL (1.4-4.0); Lymphocytes % 27.4 % (21.3-54.2); Mean Corpuscular HGB Conc 31.4 GM/DL (32-36); Mean Corpuscular Volume 84.4 FL (87-102); Mean Platelet Volume 10.5 FL (9.6-12.0); Monocytes % 12.9 % (1.7-12.7); Neutrophils % 56.7 % (38.7-73.9); Platelet Count 196 T/CUMM (130-400); Red Blood Count 3.59 MC/CUMM (3.8-5.5); Red Cell Distribution Width 15.5 % (9.3-17.3)
[2019-04-06 05:16] LABS: Calcium 9.5 MG/DL (8.5-10.1); Osmolality,Calculated 259.9 MOS/KG (273-304)
[2019-04-06 05:52] LABS: Albumin 2.8 G/DL (3.4-5.0); Bilirubin,Total 0.5 MG/DL (0.2-1.0); Calcium 9.6 MG/DL (8.5-10.1); Osmolality,Calculated 262.7 MOS/KG (273-304); Total Protein 6.3 G/DL (6.4-8.3)
[2019-04-06] MEDS: LEVOTHYROXINE 125 MCG TABLET PO SCH (05:59)
[2019-04-06] MEDS: DORNASE ALFA 2.5 MG/2.5 ML VIAL RESP TX SCH ×2 (07:47→19:36)
[2019-04-06] MEDS: ARFORMOTEROL 15 MCG/2 ML NEB RESP TX SCH ×2 (07:47→19:23)
[2019-04-06] MEDS: BUDESONIDE 0.25 MG/2 ML NEB RESP TX SCH ×2 (07:47→19:23)
[2019-04-06] MEDS: METOCLOPRAMIDE 10 MG TABLET PO SCH ×3 (08:03→16:02)
[2019-04-06] MEDS: CHOLECALCIFEROL 1,000 UNIT TABLET PO SCH (08:04)
[2019-04-06] MEDS: SELENIUM 200 MCG TABLET PO SCH (08:04)
[2019-04-06] MEDS: ASCORBIC ACID 500 MG TABLET PO SCH (08:04)
[2019-04-06] MEDS: FERROUS SULFATE 325 MG TABLET PO SCH ×2 (08:04→20:21)
[2019-04-06] MEDS: SUCRALFATE 1 GM TABLET PO SCH ×4 (08:04→20:21)
[2019-04-06] MEDS: MAGNESIUM OXIDE 400 MG TABLET PO SCH ×3 (08:04→20:21)
[2019-04-06] MEDS: MEROPENEM 1,000 MG in SYRINGE 1 EACH IV SCH ×3 (08:04→22:10)
[2019-04-06] MEDS: URSODIOL 300 MG CAPSULE PO SCH ×2 (08:04→20:20)
[2019-04-06] MEDS: ASPIRIN EC 81 MG TABLET PO SCH (08:04)
[2019-04-06] MEDS: BENZONATATE 100 MG CAPSULE PO SCH ×3 (08:04→20:20)
[2019-04-06] MEDS: metOLazone 2.5 MG TABLET PO SCH (08:05)
[2019-04-06] MEDS: LACTOBACILLUS ACIDOPHILUS/BULGARICUS CHEW TABLET PO SCH (08:05)
[2019-04-06] MEDS: PANTOPRAZOLE 40 MG TABLET PO SCH (08:05)
[2019-04-06] MEDS: POLYETHYLENE GLYCOL POWDER 17 GM PACK PO SCH (08:05)
[2019-04-06] MEDS: LEVOFLOXACIN INJ 500 MG in PREMIX 1 EACH IV SCH (16:01)
[2019-04-06] MEDS: ENOXAPARIN 40 MG/0.4 ML SYRINGE SUBCUT SCH (16:02)
[2019-04-06] MEDS: SIMVASTATIN 40 MG TABLET PO SCH (20:20)
[2019-04-06] MEDS: CETIRIZINE 10 MG TABLET PO SCH (20:20)
[2019-04-06] MEDS: ACETAMINOPHEN 325 MG TABLET PO PRN (20:20)
[2019-04-06] MEDS: MONTELUKAST 10 MG TABLET PO SCH (20:21)
[2019-04-07] MEDS: ALBUTEROL/IPRATROPIUM 3 ML NEB RESP TX SCH ×3 (00:41→12:45)
[2019-04-07 05:03] LABS: Basophils % 0.4 % (0.0-0.8); Eosinophils # 0.1 10*3/uL (0.0-0.87); Eosinophils % 0.9 % (0.00-10.9); Hematocrit 29.9 VOL% (35.7-47.0); Hemoglobin 9.4 GM/DL (12.0-16.0); Immature Granulocytes % 2.2 %; Immature Granulocytes Absolute 0.23 #; Lymphocytes # 2.5 10*3/uL (1.4-4.0); Mean Corpuscular HGB Conc 31.4 GM/DL (32-36); Mean Corpuscular Volume 85.2 FL (87-102); Monocytes % 13.9 % (1.7-12.7); Neutrophils % 59.6 % (38.7-73.9); Platelet Count 207 T/CUMM (130-400); Red Blood Count 3.51 MC/CUMM (3.8-5.5); Red Cell Distribution Width 15.9 % (9.3-17.3); White Blood Count 10.7 T/CUMM (4-12)
[2019-04-07 05:31] LABS: Albumin 2.9 G/DL (3.4-5.0); Bilirubin,Total 0.5 MG/DL (0.2-1.0); Calcium 9.3 MG/DL (8.5-10.1); Osmolality,Calculated 267.4 MOS/KG (273-304); Total Protein 6.2 G/DL (6.4-8.3)
[2019-04-07] MEDS: LEVOTHYROXINE 125 MCG TABLET PO SCH (05:57)
[2019-04-07] MEDS: BUDESONIDE 0.25 MG/2 ML NEB RESP TX SCH (07:00)
[2019-04-07] MEDS: ARFORMOTEROL 15 MCG/2 ML NEB RESP TX SCH (07:00)
[2019-04-07] MEDS: DORNASE ALFA 2.5 MG/2.5 ML VIAL RESP TX SCH (07:00)
[2019-04-07] MEDS: METOCLOPRAMIDE 10 MG TABLET PO SCH ×2 (08:56→11:50)
[2019-04-07] MEDS: SELENIUM 200 MCG TABLET PO SCH (08:56)
[2019-04-07] MEDS: predniSONE 5 MG TABLET PO SCH (08:56)
[2019-04-07] MEDS: MAGNESIUM OXIDE 400 MG TABLET PO SCH (08:56)
[2019-04-07] MEDS: BENZONATATE 100 MG CAPSULE PO SCH (08:56)
[2019-04-07] MEDS: CHOLECALCIFEROL 1,000 UNIT TABLET PO SCH (08:56)
[2019-04-07] MEDS: SUCRALFATE 1 GM TABLET PO SCH ×2 (08:56→11:51)
[2019-04-07] MEDS: PANTOPRAZOLE 40 MG TABLET PO SCH (08:57)
[2019-04-07] MEDS: ASCORBIC ACID 500 MG TABLET PO SCH (08:57)
[2019-04-07] MEDS: ASPIRIN EC 81 MG TABLET PO SCH (08:57)
[2019-04-07] MEDS: POLYETHYLENE GLYCOL POWDER 17 GM PACK PO SCH (08:57)
[2019-04-07] MEDS: FERROUS SULFATE 325 MG TABLET PO SCH (08:57)
[2019-04-07] MEDS: URSODIOL 300 MG CAPSULE PO SCH (08:57)
[2019-04-07] MEDS: POTASSIUM CHLORIDE 20 MEQ TABLET PO PRN ×2 (08:58→11:51)
[2019-04-07] MEDS: LACTOBACILLUS ACIDOPHILUS/BULGARICUS CHEW TABLET PO SCH (09:09)
[2019-04-07] MEDS ORDERED: POTASSIUM CHLORIDE 10 MEQ TABLET PO SCH (09:30)
[2019-04-07 13:29] VITALS: BP 129/63
[2019-04-07 16:40] LABS: Apearance,Urine Slightly Hazy (Clear); Bilirubin,Urine Negative (Negative); Blood, Urine Large mg/dL (Negative); Glucose,Urine (UA) Negative (Negative); Ketones,Urine Negative (Negative); Mucus,Urine Occasional /LPF (Occasional); Nitrite,Urine Negative (Negative); Protein,Urine 30 MG/DL; RBC,Urine 310 /HPF (0-4); Squamous Epithelial Cell,Urine Occasional /HPF (0-10); Urine Color Yellow (Yellow); Urine Specific Gravity 1.014 (1.001-1.035); Urine Urobilinogen < 2.0 EU/DL (0.2-1.0); WBC,Urine 80 /HPF (0-6)
== END 2019-04-07 14:45 | disposition swing bed (61) | DRG 193 ==
LOC: EDBD → EDUNIT# → N.ED 11:14 → N.EDINP 12:48 → SUATTDRO 12:48 → N.5E 14:34
PROVIDERS: ADMIT Internal Medicine

== ENCOUNTER 2019-04-29 10:50 | Inpatient (IN) ==
[2019-04-29] MEDS ORDERED: ASPIRIN 325 MG TABLET PO STA (11:19)
[2019-04-29] MEDS ORDERED: NITROGLYCERIN SL 0.4 MG TABLET SL PRN (11:19)
[2019-04-29 11:36] LABS: Basophils # 0.1 10*3/uL (0.0-0.2); Basophils % 0.2 % (0.0-0.8); Eosinophils # 0.1 10*3/uL (0.0-0.87); Eosinophils % 0.5 % (0.00-10.9); Hematocrit 34.4 VOL% (35.7-47.0); Immature Granulocytes % 1.6 %; Immature Granulocytes Absolute 0.33 #; Lymphocytes # 1.3 10*3/uL (1.4-4.0); Lymphocytes % 6.4 % (21.3-54.2); Mean Platelet Volume 11.2 FL (9.6-12.0); Monocytes % 6.1 % (1.7-12.7); Neutrophils % 85.2 % (38.7-73.9); Platelet Count 193 T/CUMM (130-400); Red Cell Distribution Width 16.4 % (9.3-17.3); White Blood Count 20.5 T/CUMM (4-12)
[2019-04-29] MEDS ORDERED: cefTRIAXone 1,000 MG in SODIUM CHLORIDE 0.9% 100 ML IV STA (12:03)
[2019-04-29 12:06] LABS: Albumin 3.4 G/DL (3.4-5.0); Bilirubin,Total 0.5 MG/DL (0.2-1.0); Calcium 9.6 MG/DL (8.5-10.1); Osmolality,Calculated 266.7 MOS/KG (273-304); Total Protein 6.8 G/DL (6.4-8.3)
[2019-04-29 12:07] LABS: Lymphocytes 11 % (20-55); Segmented Neutrophils 83 % (50-85)
[2019-04-29 12:08] LABS: Platelet Estimate Adequate; Total Cells Counted 100
[2019-04-29] MEDS ORDERED: PIPERACILLIN/TAZOBACTAM 3,375 MG in SODIUM CHLORIDE 0.9% 100 ML IV STA (12:42)
[2019-04-29 12:55] LABS: Apearance,Urine Slightly Hazy (Clear); Bacteria,Urine Occasional /HPF (Few); Bilirubin,Urine Negative (Negative); Blood, Urine Large mg/dL (Negative); Glucose,Urine (UA) Negative (Negative); Ketones,Urine Negative (Negative); Nitrite,Urine Negative (Negative); Protein,Urine 30 MG/DL; RBC,Urine 18 /HPF (0-4); Squamous Epithelial Cell,Urine Occasional /HPF (0-10); Urine Color Yellow (Yellow); Urine Specific Gravity 1.008 (1.001-1.035); Urine Urobilinogen < 2.0 EU/DL (0.2-1.0); WBC,Urine 168 /HPF (0-6)
[2019-04-29] MEDS ORDERED: ONDANSETRON 4 MG/2 ML VIAL IV PRN (13:03)
[2019-04-29] MEDS ORDERED: BISACODYL 5 MG TABLET PO PRN (13:03)
[2019-04-29] MEDS ORDERED: ACETAMINOPHEN 325 MG TABLET PO PRN (13:03)
[2019-04-29] MEDS ORDERED: DOCUSATE SODIUM 100 MG CAPSULE PO PRN (13:03)
[2019-04-29] MEDS: LEVOFLOXACIN INJ 500 MG in PREMIX 1 EACH IV SCH (13:59)
[2019-04-29] MEDS: ENOXAPARIN 30 MG/0.3 ML SYRINGE SUBCUT SCH (14:00)
[2019-04-29] MEDS: PIPERACILLIN/TAZOBACTAM 3,375 MG in SODIUM CHLORIDE 0.9% 100 ML IV SCH ×2 (15:10→22:30)
[2019-04-29] MEDS ORDERED: ONDANSETRON ODT 4 MG TABLET PO PRN (15:32)
[2019-04-29] MEDS ORDERED: ALBUTEROL 2.5 MG/3 ML NEB RESP TX PRN (15:32)
[2019-04-29] MEDS: SUCRALFATE 1 GM TABLET PO SCH ×2 (18:31→22:15)
[2019-04-29] MEDS: METOCLOPRAMIDE 5 MG TABLET PO SCH ×2 (18:31→22:16)
[2019-04-29] MEDS ORDERED: IPRATROPIUM 500 MCG/2.5 ML NEB RESP TX SCH (19:00)
[2019-04-29] MEDS ORDERED: ARFORMOTEROL 15 MCG/2 ML NEB RESP TX SCH (19:00)
[2019-04-29] MEDS: ALBUTEROL/IPRATROPIUM 3 ML NEB RESP TX SCH ×2 (19:49→23:58)
[2019-04-29] MEDS ORDERED: NITROFURANTOIN MACROCRYSTALS 100 MG CAPSULE PO SCH (21:00)
[2019-04-29] MEDS: URSODIOL 300 MG CAPSULE PO SCH (22:15)
[2019-04-29] MEDS: SIMVASTATIN 40 MG TABLET PO SCH (22:16)
[2019-04-29] MEDS: FERROUS SULFATE 325 MG TABLET PO SCH (22:16)
[2019-04-29] MEDS: MAGNESIUM OXIDE 400 MG TABLET PO SCH (22:16)
[2019-04-29] MEDS: CETIRIZINE 10 MG TABLET PO SCH (22:18)
[2019-04-30] MEDS: ALBUTEROL/IPRATROPIUM 3 ML NEB RESP TX SCH ×6 (03:45→23:30)
[2019-04-30 05:13] LABS: Basophils % 0.3 % (0.0-0.8); Eosinophils # 0.1 10*3/uL (0.0-0.87); Eosinophils % 1.2 % (0.00-10.9); Hematocrit 29.9 VOL% (35.7-47.0); Hemoglobin 9.5 GM/DL (12.0-16.0); Immature Granulocytes % 1.6 %; Immature Granulocytes Absolute 0.11 #; Lymphocytes # 2.2 10*3/uL (1.4-4.0); Lymphocytes % 32.7 % (21.3-54.2); Mean Corpuscular HGB Conc 31.8 GM/DL (32-36); Mean Corpuscular Volume 86.7 FL (87-102); Mean Platelet Volume 11.3 FL (9.6-12.0); Monocytes % 8.8 % (1.7-12.7); Neutrophils % 55.4 % (38.7-73.9); Platelet Count 156 T/CUMM (130-400); Red Blood Count 3.45 MC/CUMM (3.8-5.5); Red Cell Distribution Width 16.6 % (9.3-17.3); White Blood Count 6.7 T/CUMM (4-12)
[2019-04-30 05:26] LABS: Calcium 9.1 MG/DL (8.5-10.1); Osmolality,Calculated 267.4 MOS/KG (273-304)
[2019-04-30] MEDS: PIPERACILLIN/TAZOBACTAM 3,375 MG in SODIUM CHLORIDE 0.9% 100 ML IV SCH ×2 (05:51→16:03)
[2019-04-30] MEDS: LEVOTHYROXINE 125 MCG TABLET PO SCH (06:41)
[2019-04-30] MEDS: URSODIOL 300 MG CAPSULE PO SCH ×2 (08:57→21:54)
[2019-04-30] MEDS: CHOLECALCIFEROL 1,000 UNIT TABLET PO SCH (08:57)
[2019-04-30] MEDS: METOCLOPRAMIDE 5 MG TABLET PO SCH ×4 (08:57→21:54)
[2019-04-30] MEDS: POLYETHYLENE GLYCOL POWDER 17 GM PACK PO SCH (08:58)
[2019-04-30] MEDS: FERROUS SULFATE 325 MG TABLET PO SCH ×2 (08:58→21:54)
[2019-04-30] MEDS: PANTOPRAZOLE 40 MG TABLET PO SCH (08:58)
[2019-04-30] MEDS: MAGNESIUM OXIDE 400 MG TABLET PO SCH ×2 (08:58→21:54)
[2019-04-30] MEDS: SUCRALFATE 1 GM TABLET PO SCH ×4 (08:58→21:54)
[2019-04-30] MEDS: ASCORBIC ACID 500 MG TABLET PO SCH (08:58)
[2019-04-30] MEDS: FUROSEMIDE 40 MG/4 ML VIAL IV SCH (11:55)
[2019-04-30] MEDS: LEVOFLOXACIN INJ 500 MG in PREMIX 1 EACH IV SCH (15:02)
[2019-04-30] MEDS: ENOXAPARIN 30 MG/0.3 ML SYRINGE SUBCUT SCH (15:02)
[2019-04-30] MEDS: CETIRIZINE 10 MG TABLET PO SCH (21:54)
[2019-04-30] MEDS: SIMVASTATIN 40 MG TABLET PO SCH (21:54)
[2019-05-01] MEDS: PIPERACILLIN/TAZOBACTAM 3,375 MG in SODIUM CHLORIDE 0.9% 100 ML IV SCH ×3 (00:10→16:49)
[2019-05-01] MEDS: ALBUTEROL/IPRATROPIUM 3 ML NEB RESP TX SCH ×6 (02:35→23:51)
[2019-05-01] MEDS: LEVOTHYROXINE 125 MCG TABLET PO SCH (06:42)
[2019-05-01 07:07] LABS: Calcium 9.1 MG/DL (8.5-10.1); Osmolality,Calculated 272.2 MOS/KG (273-304)
[2019-05-01] MEDS: METOCLOPRAMIDE 5 MG TABLET PO SCH ×4 (08:41→21:21)
[2019-05-01] MEDS: POLYETHYLENE GLYCOL POWDER 17 GM PACK PO SCH (08:41)
[2019-05-01] MEDS: MAGNESIUM OXIDE 400 MG TABLET PO SCH ×2 (08:41→21:21)
[2019-05-01] MEDS: URSODIOL 300 MG CAPSULE PO SCH ×2 (08:41→21:22)
[2019-05-01] MEDS: CHOLECALCIFEROL 1,000 UNIT TABLET PO SCH (08:41)
[2019-05-01] MEDS: ASCORBIC ACID 500 MG TABLET PO SCH ×2 (08:41→21:38)
[2019-05-01] MEDS: SUCRALFATE 1 GM TABLET PO SCH ×4 (08:42→21:22)
[2019-05-01] MEDS: FUROSEMIDE 40 MG/4 ML VIAL IV SCH (08:42)
[2019-05-01] MEDS: FERROUS SULFATE 325 MG TABLET PO SCH ×2 (08:42→21:21)
[2019-05-01] MEDS: PANTOPRAZOLE 40 MG TABLET PO SCH (08:43)
[2019-05-01] MEDS ORDERED: MAGNESIUM SULF RIDER 2 GM in PREMIX 1 EACH IV PRN (09:04)
[2019-05-01] MEDS ORDERED: MAGNESIUM SULF RIDER 4 GM in PREMIX 1 EACH IV PRN (09:04)
[2019-05-01] MEDS: POTASSIUM CHLORIDE 20 MEQ TABLET PO PRN ×4 (09:29→16:06)
[2019-05-01] MEDS: DORNASE ALFA 2.5 MG/2.5 ML VIAL RESP TX SCH ×2 (10:38→19:30)
[2019-05-01] MEDS: LEVOFLOXACIN INJ 500 MG in PREMIX 1 EACH IV SCH (13:34)
[2019-05-01] MEDS: ENOXAPARIN 30 MG/0.3 ML SYRINGE SUBCUT SCH (13:34)
[2019-05-01] MEDS: CETIRIZINE 10 MG TABLET PO SCH (21:22)
[2019-05-01] MEDS: SIMVASTATIN 40 MG TABLET PO SCH (21:22)
[2019-05-02] MEDS: PIPERACILLIN/TAZOBACTAM 3,375 MG in SODIUM CHLORIDE 0.9% 100 ML IV SCH ×4 (00:14→23:17)
[2019-05-02] MEDS: ALBUTEROL/IPRATROPIUM 3 ML NEB RESP TX SCH ×6 (03:14→23:30)
[2019-05-02] MEDS: LEVOTHYROXINE 125 MCG TABLET PO SCH (06:03)
[2019-05-02 06:40] LABS: Calcium 8.9 MG/DL (8.5-10.1); Osmolality,Calculated 273.1 MOS/KG (273-304)
[2019-05-02] MEDS: DORNASE ALFA 2.5 MG/2.5 ML VIAL RESP TX SCH ×2 (07:58→19:55)
[2019-05-02] MEDS: CHOLECALCIFEROL 1,000 UNIT TABLET PO SCH (08:18)
[2019-05-02] MEDS: METOCLOPRAMIDE 5 MG TABLET PO SCH ×4 (08:19→20:33)
[2019-05-02] MEDS: MAGNESIUM OXIDE 400 MG TABLET PO SCH ×2 (08:19→20:33)
[2019-05-02] MEDS: POTASSIUM CHLORIDE 20 MEQ TABLET PO PRN (08:19)
[2019-05-02] MEDS: PANTOPRAZOLE 40 MG TABLET PO SCH (08:20)
[2019-05-02] MEDS: ASCORBIC ACID 500 MG TABLET PO SCH ×2 (08:20→20:32)
[2019-05-02] MEDS: POLYETHYLENE GLYCOL POWDER 17 GM PACK PO SCH (08:20)
[2019-05-02] MEDS: FERROUS SULFATE 325 MG TABLET PO SCH ×2 (08:20→20:33)
[2019-05-02] MEDS: SUCRALFATE 1 GM TABLET PO SCH ×4 (08:20→20:32)
[2019-05-02] MEDS: URSODIOL 300 MG CAPSULE PO SCH ×2 (08:20→20:33)
[2019-05-02] MEDS: POTASSIUM BICARB EFFERVESCENT 25 MEQ TABLET PO SCH ×2 (09:11→20:33)
[2019-05-02] MEDS: ENOXAPARIN 30 MG/0.3 ML SYRINGE SUBCUT SCH (13:15)
[2019-05-02] MEDS: CETIRIZINE 10 MG TABLET PO SCH (20:33)
[2019-05-02] MEDS: SIMVASTATIN 40 MG TABLET PO SCH (20:33)
[2019-05-03] MEDS: ALBUTEROL/IPRATROPIUM 3 ML NEB RESP TX SCH ×4 (03:48→14:15)
[2019-05-03] MEDS: LEVOTHYROXINE 125 MCG TABLET PO SCH (06:00)
[2019-05-03] MEDS: DORNASE ALFA 2.5 MG/2.5 ML VIAL RESP TX SCH (07:45)
[2019-05-03] MEDS: MAGNESIUM OXIDE 400 MG TABLET PO SCH (08:43)
[2019-05-03] MEDS: ASCORBIC ACID 500 MG TABLET PO SCH (08:43)
[2019-05-03] MEDS: URSODIOL 300 MG CAPSULE PO SCH (08:43)
[2019-05-03] MEDS: METOCLOPRAMIDE 5 MG TABLET PO SCH ×2 (08:43→10:42)
[2019-05-03] MEDS: PANTOPRAZOLE 40 MG TABLET PO SCH (08:44)
[2019-05-03] MEDS: CHOLECALCIFEROL 1,000 UNIT TABLET PO SCH (08:44)
[2019-05-03] MEDS: SUCRALFATE 1 GM TABLET PO SCH ×2 (08:44→10:42)
[2019-05-03] MEDS: FERROUS SULFATE 325 MG TABLET PO SCH (08:44)
[2019-05-03] MEDS: POLYETHYLENE GLYCOL POWDER 17 GM PACK PO SCH (08:44)
[2019-05-03] MEDS: PIPERACILLIN/TAZOBACTAM 3,375 MG in SODIUM CHLORIDE 0.9% 100 ML IV SCH (08:47)
[2019-05-03] MEDS ORDERED: AMOXICILLIN/CLAV 500 MG TABLET PO SCH (09:30)
[2019-05-03 12:11] VITALS: BP 122/59
[2019-05-03] MEDS: ENOXAPARIN 30 MG/0.3 ML SYRINGE SUBCUT SCH (14:40)
== END 2019-05-03 15:00 | disposition home health service (06) | DRG 189 ==
LOC: N.ED 10:50 → N.EDINP 13:03 → SUATTDRO 13:03 → N.5E 17:06
PROVIDERS: ADMIT Internal Medicine; ATTEND Internal Medicine

== ENCOUNTER 2019-05-14 11:48 | Observation (INO) ==
[2019-05-14 12:45] LABS: Basophils # 0.1 10*3/uL (0.0-0.2); Basophils % 0.2 % (0.0-0.8); Eosinophils # 0.2 10*3/uL (0.0-0.87); Eosinophils % 0.7 % (0.00-10.9); Hematocrit 37.5 VOL% (35.7-47.0); Hemoglobin 12.2 GM/DL (12.0-16.0); Immature Granulocytes % 1.6 %; Immature Granulocytes Absolute 0.35 #; Lymphocytes # 1.6 10*3/uL (1.4-4.0); Lymphocytes % 7.1 % (21.3-54.2); Mean Corpuscular HGB Conc 32.5 GM/DL (32-36); Mean Corpuscular Volume 84.1 FL (87-102); Monocytes % 9.1 % (1.7-12.7); Neutrophils % 81.3 % (38.7-73.9); Platelet Count 179 T/CUMM (130-400); Red Blood Count 4.46 MC/CUMM (3.8-5.5); Red Cell Distribution Width 15.8 % (9.3-17.3); White Blood Count 22.4 T/CUMM (4-12)
[2019-05-14 13:00] LABS: INR 0.9; PT Patient Result 10.3 SECS; Partial Thromboplastin Time 26.4 SECS (0-40)
[2019-05-14 13:05] LABS: Albumin 3.8 G/DL (3.4-5.0); Bilirubin,Total 0.8 MG/DL (0.2-1.0); Calcium 9.7 MG/DL (8.5-10.1); Osmolality,Calculated 266.7 MOS/KG (273-304); Total Protein 6.9 G/DL (6.4-8.3)
[2019-05-14 13:07] LABS: Eosinophils 1 % (0-10); Lymphocytes 1 % (20-55); Microcytosis Slight; Ovalocytes Few; Segmented Neutrophils 89 % (50-85); Total Cells Counted 100
[2019-05-14 13:08] LABS: Hypochromasia Slight; Platelet Estimate Normal; Spherocytes 1+
[2019-05-14 13:09] LABS: ABG Base Excess 2.4 MMOL/L (-2.5-2.5); ABG HCO3 26.6 MMOL/L (20-26); ABG Oxygen Saturation 97.9 % (95-100); ABG PCO2 37.5 MM HG (35-48); ABG PH 7.453 (7.35-7.45); ABG PO2 94.6 MM HG (80-95); ABG TCO2 23.3 MMOL/L (23-27); Allen Test Positive
[2019-05-14 13:10] LABS: Apearance,Urine CLEAR (Clear); Bacteria,Urine Few /HPF (Few); Bilirubin,Urine Negative (Negative); Blood, Urine Small mg/dL (Negative); Glucose,Urine (UA) Negative (Negative); Ketones,Urine Negative (Negative); Mucus,Urine Occasional /LPF (Occasional); Nitrite,Urine Negative (Negative); Protein,Urine 100 MG/DL; RBC,Urine 8 /HPF (0-4); Squamous Epithelial Cell,Urine Occasional /HPF (0-10); Urine Color Yellow (Yellow); Urine Specific Gravity 1.008 (1.001-1.035); Urine Urobilinogen < 2.0 EU/DL (0.2-1.0); WBC,Urine 64 /HPF (0-6)
[2019-05-14] MEDS ORDERED: PIPERACILLIN/TAZOBACTAM 3,375 MG in SODIUM CHLORIDE 0.9% 100 ML IV STA (13:16)
[2019-05-14] MEDS ORDERED: PIPERACILLIN/TAZOBACTAM 3,375 MG VIAL IV ONE (13:18)
[2019-05-14] MEDS ORDERED: SODIUM CHLORIDE 0.9% 100 ML IV ONE (13:18)
[2019-05-14] MEDS ORDERED: ONDANSETRON 4 MG/2 ML VIAL IV PRN (14:22)
[2019-05-14] MEDS ORDERED: ACETAMINOPHEN 325 MG TABLET PO PRN (14:22)
[2019-05-14] MEDS ORDERED: PIPERACILLIN/TAZOBACTAM 3,375 MG in SODIUM CHLORIDE 0.9% 100 ML IV SCH (14:30)
[2019-05-14 14:57] LABS: Thyroid Stimulating Hormone 0.152 uIU/ml (0.358-3.74)
[2019-05-14] MEDS ORDERED: MAGNESIUM SULF RIDER 2 GM in PREMIX 1 EACH IV ONE ×2 (15:28→17:30)
[2019-05-14] MEDS ORDERED: POTASSIUM CHLORIDE 20 MEQ TABLET PO STA (15:28)
[2019-05-14] MEDS: VANCOMYCIN INJ 1,000 MG in SODIUM CHLORIDE 0.9% 250 ML IV SCH (19:59)
[2019-05-14] MEDS: ENOXAPARIN 40 MG/0.4 ML SYRINGE SUBCUT SCH (21:27)
[2019-05-14] MEDS: MEROPENEM 500 MG in SODIUM CHLORIDE 0.9% 100 ML IV SCH (22:02)
[2019-05-15 05:24] LABS: Basophils % 0.2 % (0.0-0.8); Eosinophils # 0.1 10*3/uL (0.0-0.87); Eosinophils % 1.6 % (0.00-10.9); Hematocrit 32.4 VOL% (35.7-47.0); Hemoglobin 10.5 GM/DL (12.0-16.0); Immature Granulocytes % 0.8 %; Immature Granulocytes Absolute 0.07 #; Lymphocytes # 1.8 10*3/uL (1.4-4.0); Lymphocytes % 20.1 % (21.3-54.2); Mean Corpuscular HGB Conc 32.4 GM/DL (32-36); Mean Corpuscular Volume 85.3 FL (87-102); Mean Platelet Volume 11.8 FL (9.6-12.0); Monocytes % 10.2 % (1.7-12.7); Neutrophils % 67.1 % (38.7-73.9); Platelet Count 151 T/CUMM (130-400); Red Cell Distribution Width 16.1 % (9.3-17.3)
[2019-05-15 05:57] LABS: Calcium 9.7 MG/DL (8.5-10.1); Osmolality,Calculated 267.4 MOS/KG (273-304)
[2019-05-15] MEDS ORDERED: POTASSIUM CHLORIDE 20 MEQ TABLET PO ONE ×2 (07:55→11:00)
[2019-05-15] MEDS ORDERED: ALBUTEROL 2.5 MG/3 ML NEB RESP TX PRN (07:56)
[2019-05-15] MEDS ORDERED: POLYETHYLENE GLYCOL POWDER 17 GM PACK PO PRN (07:56)
[2019-05-15] MEDS ORDERED: traMADol 50 MG TABLET PO PRN (07:56)
[2019-05-15] MEDS ORDERED: predniSONE 5 MG TABLET PO SCH (08:00)
[2019-05-15] MEDS: IPRATROPIUM 500 MCG/2.5 ML NEB RESP TX SCH ×2 (08:10→20:25)
[2019-05-15] MEDS: MEROPENEM 500 MG in SODIUM CHLORIDE 0.9% 100 ML IV SCH ×2 (08:24→16:31)
[2019-05-15] MEDS ORDERED: Saccharomyces Boulardii [Probiotic (S.Boulardii)] 250 MG PO SCH (09:00)
[2019-05-15] MEDS ORDERED: BUDESONIDE 0.25 MG/2 ML NEB RESP TX SCH (09:00)
[2019-05-15] MEDS: CHOLECALCIFEROL 1,000 UNIT TABLET PO SCH (09:04)
[2019-05-15] MEDS: URSODIOL 300 MG CAPSULE PO SCH ×2 (09:04→20:24)
[2019-05-15] MEDS: metOLazone 2.5 MG TABLET PO SCH (09:04)
[2019-05-15] MEDS: MAGNESIUM OXIDE 400 MG TABLET PO SCH ×3 (09:05→20:23)
[2019-05-15] MEDS: ASPIRIN CHEW 81 MG TABLET PO SCH (09:05)
[2019-05-15] MEDS: FAMOTIDINE 20 MG TABLET PO SCH (09:05)
[2019-05-15] MEDS: CLORAZEPATE 3.75 MG TABLET PO SCH ×3 (09:05→20:23)
[2019-05-15] MEDS: SELENIUM 200 MCG TABLET PO SCH (09:05)
[2019-05-15] MEDS: ASCORBIC ACID 500 MG TABLET PO SCH (09:06)
[2019-05-15] MEDS: PANTOPRAZOLE 40 MG TABLET PO SCH (09:06)
[2019-05-15] MEDS: ARFORMOTEROL 15 MCG/2 ML NEB RESP TX SCH ×2 (11:31→20:25)
[2019-05-15] MEDS: METOCLOPRAMIDE 10 MG TABLET PO SCH ×3 (11:37→20:24)
[2019-05-15] MEDS: SUCRALFATE 1 GM TABLET PO SCH ×3 (11:37→20:23)
[2019-05-15] MEDS ORDERED: POTASSIUM CHLORIDE 10 MEQ TABLET PO SCH (19:00)
[2019-05-15] MEDS: BUDESONIDE 0.25 MG/2 ML NEB RESP TX SCH (20:25)
[2019-05-15] MEDS: VANCOMYCIN INJ 1,000 MG in SODIUM CHLORIDE 0.9% 250 ML IV SCH (20:31)
[2019-05-15] MEDS: ENOXAPARIN 40 MG/0.4 ML SYRINGE SUBCUT SCH (20:32)
[2019-05-15] MEDS ORDERED: MONTELUKAST 10 MG TABLET PO SCH (21:00)
[2019-05-15] MEDS ORDERED: CETIRIZINE 10 MG TABLET PO SCH (21:00)
[2019-05-15] MEDS ORDERED: SIMVASTATIN 40 MG TABLET PO SCH (21:00)
[2019-05-16] MEDS: MEROPENEM 500 MG in SODIUM CHLORIDE 0.9% 100 ML IV SCH ×2 (00:58→09:25)
[2019-05-16 05:39] LABS: Basophils % 0.1 % (0.0-0.8); Eosinophils # 0.1 10*3/uL (0.0-0.87); Hematocrit 30.7 VOL% (35.7-47.0); Hemoglobin 9.4 GM/DL (12.0-16.0); Immature Granulocytes % 0.6 %; Immature Granulocytes Absolute 0.04 #; Lymphocytes % 28.5 % (21.3-54.2); Mean Corpuscular HGB Conc 30.6 GM/DL (32-36); Mean Corpuscular Volume 88.2 FL (87-102); Mean Platelet Volume 11.7 FL (9.6-12.0); Monocytes % 14.7 % (1.7-12.7); Neutrophils % 55.1 % (38.7-73.9); Platelet Count 131 T/CUMM (130-400); Red Blood Count 3.48 MC/CUMM (3.8-5.5); Red Cell Distribution Width 15.9 % (9.3-17.3); White Blood Count 6.9 T/CUMM (4-12)
[2019-05-16 06:17] LABS: Calcium 9.1 MG/DL (8.5-10.1); Osmolality,Calculated 274.1 MOS/KG (273-304)
[2019-05-16] MEDS ORDERED: LEVOTHYROXINE 137 MCG TABLET PO SCH (06:30)
[2019-05-16] MEDS ORDERED: LEVOTHYROXINE 100 MCG TABLET PO SCH (06:30)
[2019-05-16] MEDS ORDERED: LEVOTHYROXINE 125 MCG TABLET PO SCH (07:00)
[2019-05-16] MEDS: IPRATROPIUM 500 MCG/2.5 ML NEB RESP TX SCH (07:15)
[2019-05-16] MEDS: ARFORMOTEROL 15 MCG/2 ML NEB RESP TX SCH (07:15)
[2019-05-16] MEDS: BUDESONIDE 0.25 MG/2 ML NEB RESP TX SCH (07:15)
[2019-05-16] MEDS: FAMOTIDINE 20 MG TABLET PO SCH (09:29)
[2019-05-16] MEDS: CLORAZEPATE 3.75 MG TABLET PO SCH (09:29)
[2019-05-16] MEDS: METOCLOPRAMIDE 10 MG TABLET PO SCH ×2 (09:29→11:42)
[2019-05-16] MEDS: SUCRALFATE 1 GM TABLET PO SCH ×2 (09:29→11:42)
[2019-05-16] MEDS: URSODIOL 300 MG CAPSULE PO SCH (09:29)
[2019-05-16] MEDS: ASPIRIN CHEW 81 MG TABLET PO SCH (09:29)
[2019-05-16] MEDS: MAGNESIUM OXIDE 400 MG TABLET PO SCH (09:29)
[2019-05-16] MEDS: metOLazone 2.5 MG TABLET PO SCH (09:30)
[2019-05-16] MEDS: SELENIUM 200 MCG TABLET PO SCH (09:30)
[2019-05-16] MEDS: ASCORBIC ACID 500 MG TABLET PO SCH (09:30)
[2019-05-16] MEDS: CHOLECALCIFEROL 1,000 UNIT TABLET PO SCH (09:30)
[2019-05-16] MEDS: PANTOPRAZOLE 40 MG TABLET PO SCH (09:30)
[2019-05-16 09:56] VITALS: BP 116/58
== END 2019-05-16 12:15 | disposition home or self-care (01) ==
LOC: N.ED 11:48 → N.5E 11:48
PROVIDERS: ADMIT Internal Medicine; ATTEND Internal Medicine

== ENCOUNTER 2019-08-08 18:05 | Observation (INO) ==
[2019-08-08 19:46] LABS: Basophils % 0.3 % (0.0-0.8); Eosinophils % 0.2 % (0.00-10.9); Hematocrit 38.6 VOL% (35.7-47.0); Hemoglobin 12.7 GM/DL (12.0-16.0); Immature Granulocytes % 1.4 %; Immature Granulocytes Absolute 0.13 #; Lymphocytes # 2.6 10*3/uL (1.4-4.0); Lymphocytes % 27.6 % (21.3-54.2); Mean Corpuscular HGB Conc 32.9 GM/DL (32-36); Mean Corpuscular Volume 85.6 FL (87-102); Monocytes % 10.7 % (1.7-12.7); Neutrophils % 59.8 % (38.7-73.9); Platelet Count 162 T/CUMM (130-400); Red Blood Count 4.51 MC/CUMM (3.8-5.5); Red Cell Distribution Width 15.2 % (9.3-17.3); White Blood Count 9.4 T/CUMM (4-12)
[2019-08-08 19:59] LABS: Bilirubin,Total 0.5 MG/DL (0.2-1.0); Calcium 9.7 MG/DL (8.5-10.1); Osmolality,Calculated 254.2 MOS/KG (273-304); Total Protein 7.7 G/DL (6.4-8.3)
[2019-08-08 23:27] LABS: Apearance,Urine CLEAR (Clear); Bilirubin,Urine Negative (Negative); Blood, Urine Large mg/dL (Negative); Glucose,Urine (UA) Negative (Negative); Ketones,Urine Negative (Negative); Nitrite,Urine Negative (Negative); Protein,Urine 30 MG/DL; RBC,Urine 314 /HPF (0-4); Squamous Epithelial Cell,Urine Occasional /HPF (0-10); Urine Color Yellow (Yellow); Urine Specific Gravity 1.008 (1.001-1.035); Urine Urobilinogen < 2.0 EU/DL (0.2-1.0); WBC,Urine 5 /HPF (0-6)
[2019-08-09] MEDS ORDERED: ONDANSETRON 4 MG/2 ML VIAL IV PRN (00:36)
[2019-08-09] MEDS ORDERED: NICOTINE 21 MG/24 HR PATCH TRANSDERM PRN (00:36)
[2019-08-09] MEDS ORDERED: BISACODYL 5 MG TABLET PO PRN (00:36)
[2019-08-09] MEDS ORDERED: ACETAMINOPHEN 325 MG TABLET PO PRN (00:36)
[2019-08-09] MEDS ORDERED: diphenhydrAMINE CAP 25 MG CAPSULE PO PRN (00:36)
[2019-08-09] MEDS ORDERED: cefTRIAXone 1,000 MG in SYRINGE 1 EACH IV SCH (01:00)
[2019-08-09] MEDS ORDERED: SODIUM CHLORIDE 0.9% 1,000 ML IV SCH (01:00)
[2019-08-09] MEDS ORDERED: ALBUTEROL 2.5 MG/3 ML NEB RESP TX PRN (01:08)
[2019-08-09] MEDS ORDERED: SODIUM CHLORIDE 0.9% 100 ML IV ONE (01:19)
[2019-08-09 05:37] LABS: Albumin 3.4 G/DL (3.4-5.0); Bilirubin,Total 0.4 MG/DL (0.2-1.0); Calcium 9.1 MG/DL (8.5-10.1); Osmolality,Calculated 258.8 MOS/KG (273-304); Total Protein 6.7 G/DL (6.4-8.3)
[2019-08-09] MEDS ORDERED: ENOXAPARIN 40 MG/0.4 ML SYRINGE SUBCUT SCH (06:30)
[2019-08-09] MEDS ORDERED: ASPIRIN CHEW 81 MG TABLET PO SCH (09:00)
[2019-08-09 16:09] VITALS: BP 144/68
[2019-08-09] MEDS ORDERED: SIMVASTATIN 40 MG TABLET PO SCH (21:00)
[2019-08-09] MEDS ORDERED: MONTELUKAST 10 MG TABLET PO SCH (21:00)
== END 2019-08-09 16:52 | disposition home or self-care (01) ==
LOC: N.ED 18:05 → N.EDINP 18:05 → N.5E 08-09 01:06
PROVIDERS: ADMIT Internal Medicine Geriatric Medicine; ATTEND Internal Medicine Geriatric Medicine

== ENCOUNTER 2019-08-26 11:05 | Inpatient (IN) ==
[2019-08-26] MEDS ORDERED: SODIUM CHLORIDE 0.9% 1,000 ML IV STA (11:48)
[2019-08-26] MEDS ORDERED: ONDANSETRON 4 MG/2 ML VIAL IV STA (11:48)
[2019-08-26] MEDS ORDERED: ALBUTEROL 2.5 MG/3 ML NEB RESP TX STA (11:49)
[2019-08-26 12:06] LABS: Apearance,Urine CLOUDY (Clear); Bilirubin,Urine Negative (Negative); Blood, Urine Large mg/dL (Negative); Glucose,Urine (UA) Negative (Negative); Hyaline Casts,Urine 20 /LPF (0-3); Ketones,Urine 5 mg/dL (Negative); Mucus,Urine Moderate /LPF (Occasional); Nitrite,Urine Negative (Negative); Protein,Urine 100 MG/DL; RBC,Urine 2593 /HPF (0-4); Urine Color Amber (Yellow); Urine Specific Gravity 1.018 (1.001-1.035); Urine Urobilinogen < 2.0 EU/DL (0.2-1.0); WBC,Urine 399 /HPF (0-6)
[2019-08-26 12:31] LABS: Basophils # 0.1 10*3/uL (0.0-0.2); Basophils % 0.2 % (0.0-0.8); Eosinophils # 0.2 10*3/uL (0.0-0.87); Eosinophils % 1.1 % (0.00-10.9); Hematocrit 41.8 VOL% (35.7-47.0); Immature Granulocytes % 1.6 %; Immature Granulocytes Absolute 0.33 #; Lymphocytes # 2.9 10*3/uL (1.4-4.0); Lymphocytes % 13.7 % (21.3-54.2); Mean Corpuscular HGB Conc 33.5 GM/DL (32-36); Mean Corpuscular Volume 84.3 FL (87-102); Mean Platelet Volume 11.8 FL (9.6-12.0); Monocytes % 12.8 % (1.7-12.7); Neutrophils % 70.6 % (38.7-73.9); Platelet Count 163 T/CUMM (130-400); Red Blood Count 4.96 MC/CUMM (3.8-5.5); Red Cell Distribution Width 14.8 % (9.3-17.3); White Blood Count 21.1 T/CUMM (4-12)
[2019-08-26 12:45] LABS: Bilirubin,Total 0.9 MG/DL (0.2-1.0); Calcium 9.9 MG/DL (8.5-10.1); Osmolality,Calculated 250.9 MOS/KG (273-304); Total Protein 7.7 G/DL (6.4-8.3)
[2019-08-26 12:53] LABS: Anisocytosis Slight; Band Neutrophils 15 % (0-10); Giant Platelets Few; Lymphocytes 10 % (20-55); Platelet Estimate Normal; Segmented Neutrophils 63 % (50-85); Total Cells Counted 100
[2019-08-26] MEDS ORDERED: DOCUSATE SODIUM 100 MG CAPSULE PO PRN (13:19)
[2019-08-26] MEDS ORDERED: PROMETHAZINE 25 MG/1 ML VIAL IM PRN (13:19)
[2019-08-26] MEDS ORDERED: BISACODYL 5 MG TABLET PO PRN (13:19)
[2019-08-26] MEDS ORDERED: LACTULOSE 20 GM/30 ML UDCUP PO PRN (13:19)
[2019-08-26] MEDS ORDERED: INFLUENZA VIRUS VACCINE 0.5 ML SYRINGE IM ONE (15:38)
[2019-08-26] MEDS: MEROPENEM 500 MG in SODIUM CHLORIDE 0.9% 100 ML IV SCH ×2 (15:47→21:57)
[2019-08-26] MEDS: SODIUM CHLORIDE 0.9% 1,000 ML IV SCH ×2 (15:48→22:33)
[2019-08-26] MEDS: ONDANSETRON 4 MG/2 ML VIAL IV PRN (15:59)
[2019-08-27] MEDS: ONDANSETRON 4 MG/2 ML VIAL IV PRN ×2 (00:47→05:30)
[2019-08-27] MEDS: SODIUM CHLORIDE 0.9% 1,000 ML IV SCH ×2 (00:51→06:46)
[2019-08-27] MEDS ORDERED: METOCLOPRAMIDE 10 MG/2 ML VIAL IV ONE (01:06)
[2019-08-27 04:47] LABS: Basophils % 0.2 % (0.0-0.8); Eosinophils % 0.2 % (0.00-10.9); Hematocrit 38.8 VOL% (35.7-47.0); Hemoglobin 12.7 GM/DL (12.0-16.0); Immature Granulocytes % 1.3 %; Immature Granulocytes Absolute 0.17 #; Lymphocytes # 2.3 10*3/uL (1.4-4.0); Lymphocytes % 17.9 % (21.3-54.2); Mean Corpuscular HGB Conc 32.7 GM/DL (32-36); Mean Corpuscular Volume 85.7 FL (87-102); Mean Platelet Volume 11.8 FL (9.6-12.0); Monocytes % 11.6 % (1.7-12.7); Neutrophils % 68.8 % (38.7-73.9); Platelet Count 138 T/CUMM (130-400); Red Blood Count 4.53 MC/CUMM (3.8-5.5); Red Cell Distribution Width 14.7 % (9.3-17.3); White Blood Count 12.7 T/CUMM (4-12)
[2019-08-27 05:19] LABS: Albumin 3.2 G/DL (3.4-5.0); Bilirubin,Total 1.1 MG/DL (0.2-1.0); Calcium 8.8 MG/DL (8.5-10.1); Osmolality,Calculated 253.4 MOS/KG (273-304); Risk Ratio 2.14; Thyroid Stimulating Hormone 0.707 uIU/ml (0.358-3.74); Total Protein 6.4 G/DL (6.4-8.3); VLDL CHOLESTEROL 14.4 MG/DL
[2019-08-27] MEDS: MEROPENEM 500 MG in SODIUM CHLORIDE 0.9% 100 ML IV SCH ×3 (05:32→21:35)
[2019-08-27] MEDS: POTASSIUM CHLORIDE RIDER 10 MEQ in PREMIX 1 EACH IV PRN ×5 (06:56→16:12)
[2019-08-27] MEDS ORDERED: MAGNESIUM SULF RIDER 2 GM in PREMIX 1 EACH IV ONE (07:43)
[2019-08-27] MEDS ORDERED: POTASSIUM CHLORIDE INJ 40 MEQ in SODIUM CHLORIDE 0.9% 1,000 ML IV SCH (08:10)
[2019-08-27] MEDS ORDERED: PANTOPRAZOLE 40 MG TABLET PO SCH (09:00)
[2019-08-27] MEDS: SODIUM CHLOR 0.9% KCL 40 MEQ 40 MEQ/1,000 ML BAG IV SCH ×3 (11:12→20:10)
[2019-08-27] MEDS: PANTOPRAZOLE 40 MG VIAL IV SCH (16:12)
[2019-08-28] MEDS: SODIUM CHLOR 0.9% KCL 40 MEQ 40 MEQ/1,000 ML BAG IV SCH ×2 (03:17→04:52)
[2019-08-28] MEDS: MEROPENEM 500 MG in SODIUM CHLORIDE 0.9% 100 ML IV SCH ×3 (05:44→22:08)
[2019-08-28 05:48] LABS: Basophils % 0.2 % (0.0-0.8); Eosinophils % 0.5 % (0.00-10.9); Hematocrit 35.9 VOL% (35.7-47.0); Hemoglobin 11.5 GM/DL (12.0-16.0); Immature Granulocytes % 1.8 %; Immature Granulocytes Absolute 0.16 #; Lymphocytes # 2.1 10*3/uL (1.4-4.0); Lymphocytes % 23.6 % (21.3-54.2); Mean Corpuscular Volume 88.4 FL (87-102); Mean Platelet Volume 11.6 FL (9.6-12.0); Neutrophils % 58.9 % (38.7-73.9); Red Blood Count 4.06 MC/CUMM (3.8-5.5); Red Cell Distribution Width 14.6 % (9.3-17.3); White Blood Count 8.9 T/CUMM (4-12)
[2019-08-28 05:49] LABS: Platelet Count 111 T/CUMM (130-400)
[2019-08-28 06:07] LABS: Calcium 8.6 MG/DL (8.5-10.1); Osmolality,Calculated 267.1 MOS/KG (273-304)
[2019-08-28] MEDS ORDERED: MAGNESIUM SULF RIDER 2 GM in PREMIX 1 EACH IV ONE (08:01)
[2019-08-28] MEDS: PANTOPRAZOLE 40 MG VIAL IV SCH (09:41)
[2019-08-28] MEDS: POTASSIUM CHLORIDE INJ 10 MEQ in DEXTROSE 5% LACTATED RINGERS 1,000 ML IV SCH ×2 (10:01→19:36)
[2019-08-29] MEDS: POTASSIUM CHLORIDE INJ 10 MEQ in DEXTROSE 5% LACTATED RINGERS 1,000 ML IV SCH (04:51)
[2019-08-29] MEDS: MEROPENEM 500 MG in SODIUM CHLORIDE 0.9% 100 ML IV SCH ×2 (05:51→15:27)
[2019-08-29 06:28] LABS: Basophils % 0.1 % (0.0-0.8); Eosinophils # 0.1 10*3/uL (0.0-0.87); Eosinophils % 0.9 % (0.00-10.9); Hematocrit 32.9 VOL% (35.7-47.0); Hemoglobin 10.8 GM/DL (12.0-16.0); Immature Granulocytes % 1.2 %; Immature Granulocytes Absolute 0.08 #; Lymphocytes # 1.8 10*3/uL (1.4-4.0); Lymphocytes % 25.8 % (21.3-54.2); Mean Corpuscular HGB Conc 32.8 GM/DL (32-36); Mean Corpuscular Volume 85.2 FL (87-102); Mean Platelet Volume 12.2 FL (9.6-12.0); Monocytes % 19.1 % (1.7-12.7); Neutrophils % 52.9 % (38.7-73.9); Platelet Count 110 T/CUMM (130-400); Red Blood Count 3.86 MC/CUMM (3.8-5.5); Red Cell Distribution Width 14.3 % (9.3-17.3); White Blood Count 6.8 T/CUMM (4-12)
[2019-08-29 06:44] LABS: Calcium 8.6 MG/DL (8.5-10.1); Osmolality,Calculated 257.9 MOS/KG (273-304)
[2019-08-29 07:10] LABS: Eosinophils 1 % (0-10); Lymphocytes 17 % (20-55); Platelet Estimate Decreased; Polychromasia Few; Segmented Neutrophils 65 % (50-85); Total Cells Counted 100
[2019-08-29] MEDS ORDERED: MAGNESIUM SULF RIDER 4 GM in PREMIX 1 EACH IV ONE (07:31)
[2019-08-29] MEDS: PANTOPRAZOLE 40 MG VIAL IV SCH (10:05)
[2019-08-29] MEDS: DEXT 5% NACL 0.9% KCL 20 MEQ 20 MEQ/1,000 ML BAG IV SCH ×2 (10:16→16:23)
[2019-08-29] MEDS: ALBUTEROL/IPRATROPIUM 3 ML NEB RESP TX SCH ×2 (13:26→19:23)
[2019-08-29] MEDS: LEVOFLOXACIN INJ 500 MG in PREMIX 1 EACH IV SCH (16:34)
[2019-08-29] MEDS: ACETAMINOPHEN 325 MG TABLET PO PRN (19:37)
[2019-08-30] MEDS: DEXT 5% NACL 0.9% KCL 20 MEQ 20 MEQ/1,000 ML BAG IV SCH ×3 (01:50→14:36)
[2019-08-30] MEDS: ALBUTEROL/IPRATROPIUM 3 ML NEB RESP TX SCH ×4 (02:16→19:22)
[2019-08-30 04:27] LABS: Basophils % 0.3 % (0.0-0.8); Eosinophils % 0.4 % (0.00-10.9); Hematocrit 32.6 VOL% (35.7-47.0); Hemoglobin 10.6 GM/DL (12.0-16.0); Immature Granulocytes % 1.1 %; Immature Granulocytes Absolute 0.08 #; Lymphocytes # 2.4 10*3/uL (1.4-4.0); Lymphocytes % 32.3 % (21.3-54.2); Mean Corpuscular HGB Conc 32.5 GM/DL (32-36); Mean Corpuscular Volume 85.6 FL (87-102); Mean Platelet Volume 11.7 FL (9.6-12.0); Monocytes % 24.5 % (1.7-12.7); Neutrophils % 41.4 % (38.7-73.9); Red Blood Count 3.81 MC/CUMM (3.8-5.5); Red Cell Distribution Width 14.4 % (9.3-17.3); White Blood Count 7.4 T/CUMM (4-12)
[2019-08-30 04:29] LABS: Platelet Count 94 T/CUMM (130-400)
[2019-08-30 04:46] LABS: Calcium 8.1 MG/DL (8.5-10.1); Osmolality,Calculated 263.7 MOS/KG (273-304)
[2019-08-30 04:50] LABS: Hypochromasia 1+; Lymphocytes 29 % (20-55); Ovalocytes Slight; Platelet Estimate Decreased; Segmented Neutrophils 50 % (50-85); Total Cells Counted 100
[2019-08-30] MEDS: PANTOPRAZOLE 40 MG VIAL IV SCH (08:15)
[2019-08-30] MEDS: DESITIN 4OZ/NYSTATIN 15 GRAM MIXTURE PASTE TOP SCH ×2 (13:45→20:45)
[2019-08-30] MEDS: PANTOPRAZOLE 40 MG TABLET PO SCH (15:37)
[2019-08-30] MEDS: LEVOFLOXACIN INJ 500 MG in PREMIX 1 EACH IV SCH (15:37)
[2019-08-31] MEDS: ALBUTEROL/IPRATROPIUM 3 ML NEB RESP TX SCH ×4 (00:03→18:50)
[2019-08-31 04:52] LABS: Basophils % 0.3 % (0.0-0.8); Eosinophils % 0.2 % (0.00-10.9); Hematocrit 31.2 VOL% (35.7-47.0); Immature Granulocytes % 0.9 %; Immature Granulocytes Absolute 0.06 #; Lymphocytes # 1.7 10*3/uL (1.4-4.0); Mean Corpuscular HGB Conc 32.1 GM/DL (32-36); Mean Corpuscular Volume 85.5 FL (87-102); Mean Platelet Volume 11.8 FL (9.6-12.0); Monocytes % 23.9 % (1.7-12.7); Neutrophils % 48.7 % (38.7-73.9); Platelet Count 98 T/CUMM (130-400); Red Blood Count 3.65 MC/CUMM (3.8-5.5); Red Cell Distribution Width 14.4 % (9.3-17.3); White Blood Count 6.4 T/CUMM (4-12)
[2019-08-31 05:08] LABS: Calcium 8.3 MG/DL (8.5-10.1); Osmolality,Calculated 260.7 MOS/KG (273-304)
[2019-08-31 05:15] LABS: Eosinophils 1 % (0-10); Hypochromasia 1+; Lymphocytes 27 % (20-55); Ovalocytes Slight; Platelet Estimate Decreased; Segmented Neutrophils 58 % (50-85); Total Cells Counted 100
[2019-08-31] MEDS: DEXT 5% NACL 0.9% KCL 20 MEQ 20 MEQ/1,000 ML BAG IV SCH (05:44)
[2019-08-31] MEDS: PANTOPRAZOLE 40 MG TABLET PO SCH ×2 (08:00→16:20)
[2019-08-31] MEDS: DESITIN 4OZ/NYSTATIN 15 GRAM MIXTURE PASTE TOP SCH ×2 (08:00→22:10)
[2019-08-31] MEDS: LEVOFLOXACIN 500 MG TABLET PO SCH (16:20)
[2019-08-31] MEDS: MAGNESIUM SULF RIDER 4 GM in PREMIX 1 EACH IV PRN (18:00)
[2019-09-01] MEDS: ALBUTEROL/IPRATROPIUM 3 ML NEB RESP TX SCH ×4 (00:15→19:12)
[2019-09-01 05:14] LABS: Basophils % 0.3 % (0.0-0.8); Eosinophils # 0.1 10*3/uL (0.0-0.87); Eosinophils % 0.8 % (0.00-10.9); Hematocrit 29.9 VOL% (35.7-47.0); Hemoglobin 9.9 GM/DL (12.0-16.0); Immature Granulocytes % 1.1 %; Immature Granulocytes Absolute 0.08 #; Lymphocytes # 1.4 10*3/uL (1.4-4.0); Lymphocytes % 18.1 % (21.3-54.2); Mean Corpuscular HGB Conc 33.1 GM/DL (32-36); Mean Corpuscular Volume 84.5 FL (87-102); Mean Platelet Volume 12.5 FL (9.6-12.0); Monocytes % 20.2 % (1.7-12.7); Neutrophils % 59.5 % (38.7-73.9); Platelet Count 102 T/CUMM (130-400); Red Blood Count 3.54 MC/CUMM (3.8-5.5); Red Cell Distribution Width 14.6 % (9.3-17.3); White Blood Count 7.6 T/CUMM (4-12)
[2019-09-01 05:36] LABS: Calcium 8.1 MG/DL (8.5-10.1); Osmolality,Calculated 255.4 MOS/KG (273-304)
[2019-09-01 05:46] LABS: Band Neutrophils 1 % (0-10); Lymphocytes 19 % (20-55); Platelet Estimate Decreased; Segmented Neutrophils 60 % (50-85); Total Cells Counted 100
[2019-09-01] MEDS: DEXT 5% NACL 0.9% KCL 20 MEQ 20 MEQ/1,000 ML BAG IV SCH (06:15)
[2019-09-01] MEDS: DESITIN 4OZ/NYSTATIN 15 GRAM MIXTURE PASTE TOP SCH ×2 (08:17→23:44)
[2019-09-01] MEDS: PANTOPRAZOLE 40 MG TABLET PO SCH ×2 (08:17→16:10)
[2019-09-01] MEDS: LEVOFLOXACIN 500 MG TABLET PO SCH (16:10)
[2019-09-02] MEDS: ALBUTEROL/IPRATROPIUM 3 ML NEB RESP TX SCH ×4 (00:49→19:34)
[2019-09-02] MEDS: DESITIN 4OZ/NYSTATIN 15 GRAM MIXTURE PASTE TOP SCH ×2 (08:48→21:31)
[2019-09-02] MEDS: PANTOPRAZOLE 40 MG TABLET PO SCH ×2 (08:49→16:32)
[2019-09-02 09:36] LABS: Basophils % 0.2 % (0.0-0.8); Eosinophils # 0.1 10*3/uL (0.0-0.87); Eosinophils % 0.8 % (0.00-10.9); Hematocrit 30.3 VOL% (35.7-47.0); Hemoglobin 9.7 GM/DL (12.0-16.0); Immature Granulocytes % 1.4 %; Immature Granulocytes Absolute 0.12 #; Lymphocytes # 1.2 10*3/uL (1.4-4.0); Lymphocytes % 14.2 % (21.3-54.2); Mean Corpuscular Volume 85.8 FL (87-102); Mean Platelet Volume 11.7 FL (9.6-12.0); Monocytes % 17.1 % (1.7-12.7); Neutrophils % 66.3 % (38.7-73.9); Platelet Count 106 T/CUMM (130-400); Red Blood Count 3.53 MC/CUMM (3.8-5.5); White Blood Count 8.5 T/CUMM (4-12)
[2019-09-02 09:55] LABS: Hypochromasia 1+; Lymphocytes 14 % (20-55); Platelet Estimate Decreased; Segmented Neutrophils 71 % (50-85); Total Cells Counted 100
[2019-09-02 10:05] LABS: Calcium 8.4 MG/DL (8.5-10.1); Osmolality,Calculated 255.2 MOS/KG (273-304)
[2019-09-02] MEDS: URSODIOL 300 MG CAPSULE PO SCH ×2 (15:26→21:31)
[2019-09-02] MEDS: SPIRONOLACTONE 25 MG TABLET PO SCH (15:26)
[2019-09-02] MEDS: metOLazone 2.5 MG TABLET PO SCH (15:31)
[2019-09-02] MEDS: OXYBUTYNIN XL 10 MG TABLET PO SCH (15:31)
[2019-09-02] MEDS: ASPIRIN CHEW 81 MG TABLET PO SCH (15:31)
[2019-09-02] MEDS: LEVOFLOXACIN 500 MG TABLET PO SCH (16:32)
[2019-09-02] MEDS: METOCLOPRAMIDE 10 MG TABLET PO SCH ×2 (16:34→21:31)
[2019-09-02] MEDS ORDERED: NITROFURANTOIN MACROCRYSTALS 50 MG CAPSULE PO SCH (21:00)
[2019-09-02] MEDS: SIMVASTATIN 40 MG TABLET PO SCH (21:31)
[2019-09-03] MEDS: ALBUTEROL/IPRATROPIUM 3 ML NEB RESP TX SCH ×4 (00:44→19:50)
[2019-09-03 05:15] LABS: Basophils % 0.2 % (0.0-0.8); Eosinophils # 0.1 10*3/uL (0.0-0.87); Eosinophils % 0.8 % (0.00-10.9); Hematocrit 27.9 VOL% (35.7-47.0); Immature Granulocytes % 1.6 %; Immature Granulocytes Absolute 0.15 #; Lymphocytes # 1.6 10*3/uL (1.4-4.0); Lymphocytes % 16.5 % (21.3-54.2); Mean Corpuscular HGB Conc 32.3 GM/DL (32-36); Mean Corpuscular Volume 84.8 FL (87-102); Mean Platelet Volume 12.6 FL (9.6-12.0); Monocytes % 15.4 % (1.7-12.7); Neutrophils % 65.5 % (38.7-73.9); Platelet Count 121 T/CUMM (130-400); Red Blood Count 3.29 MC/CUMM (3.8-5.5); Red Cell Distribution Width 14.8 % (9.3-17.3); White Blood Count 9.5 T/CUMM (4-12)
[2019-09-03 05:43] LABS: Calcium 8.7 MG/DL (8.5-10.1); Osmolality,Calculated 258.9 MOS/KG (273-304)
[2019-09-03] MEDS: LEVOTHYROXINE 125 MCG TABLET PO SCH (06:43)
[2019-09-03] MEDS: metOLazone 2.5 MG TABLET PO SCH (09:27)
[2019-09-03] MEDS: URSODIOL 300 MG CAPSULE PO SCH ×2 (09:27→20:42)
[2019-09-03] MEDS: METOCLOPRAMIDE 10 MG TABLET PO SCH ×4 (09:28→20:42)
[2019-09-03] MEDS: PANTOPRAZOLE 40 MG TABLET PO SCH ×2 (09:28→18:09)
[2019-09-03] MEDS: OXYBUTYNIN XL 10 MG TABLET PO SCH (09:28)
[2019-09-03] MEDS: SPIRONOLACTONE 25 MG TABLET PO SCH (09:28)
[2019-09-03] MEDS: ASPIRIN CHEW 81 MG TABLET PO SCH (09:28)
[2019-09-03] MEDS: DESITIN 4OZ/NYSTATIN 15 GRAM MIXTURE PASTE TOP SCH ×2 (09:33→20:51)
[2019-09-03] MEDS: MAGNESIUM SULF RIDER 4 GM in PREMIX 1 EACH IV PRN (10:33)
[2019-09-03] MEDS ORDERED: MEROPENEM 1,000 MG in SODIUM CHLORIDE 0.9% 100 ML IV SCH (11:30)
[2019-09-03] MEDS: methylPREDNISolone SOD SUC 40 MG/1 ML VIAL IV SCH ×2 (13:11→22:47)
[2019-09-03] MEDS: MEROPENEM 500 MG in SODIUM CHLORIDE 0.9% 100 ML IV SCH ×2 (13:12→19:33)
[2019-09-03] MEDS: METHEN/SOD PHOS/METH BLUE/HYOS TABLET PO SCH ×3 (13:24→20:42)
[2019-09-03] MEDS: NYSTATIN 500,000 UNIT/5 ML UDCUP SWISH/SWAL SCH ×3 (13:24→20:42)
[2019-09-03] MEDS: ACYCLOVIR 5% OINT 15 GM TUBE TOP SCH ×3 (14:50→21:35)
[2019-09-03 16:04] LABS: Apearance,Urine Slightly Hazy (Clear); Bacteria,Urine Occasional /HPF (Few); Bilirubin,Urine Negative (Negative); Blood, Urine Large mg/dL (Negative); Glucose,Urine (UA) Negative (Negative); Hyaline Casts,Urine 3 /LPF (0-3); Ketones,Urine Negative (Negative); Mucus,Urine Few /LPF (Occasional); Nitrite,Urine Negative (Negative); Protein,Urine 30 MG/DL; RBC,Urine 982 /HPF (0-4); Urine Color Yellow (Yellow); Urine Specific Gravity 1.013 (1.001-1.035); Urine Urobilinogen < 2.0 EU/DL (0.2-1.0); WBC,Urine 55 /HPF (0-6)
[2019-09-03] MEDS: TRACE ELEMENTS (5) 1 ML, MULTIVITAMIN INJ 10 ML in AMINO ACIDS/DEXT/LYTES 4.25-5% 2,000 ML IV SCH (18:03)
[2019-09-03] MEDS: FLUCONAZOLE INJ 100 MG in IV BAG 1 EACH IV SCH (18:09)
[2019-09-03] MEDS: DORNASE ALFA 2.5 MG/2.5 ML VIAL RESP TX SCH (19:55)
[2019-09-03] MEDS: SIMVASTATIN 40 MG TABLET PO SCH (20:42)
[2019-09-03] MEDS: MAGNESIUM OXIDE 400 MG TABLET PO SCH (20:42)
[2019-09-04] MEDS: ALBUTEROL/IPRATROPIUM 3 ML NEB RESP TX SCH ×4 (00:50→19:04)
[2019-09-04] MEDS: MEROPENEM 500 MG in SODIUM CHLORIDE 0.9% 100 ML IV SCH ×4 (01:38→20:47)
[2019-09-04] MEDS: ACYCLOVIR 5% OINT 15 GM TUBE TOP SCH ×5 (06:05→22:07)
[2019-09-04] MEDS: LEVOTHYROXINE 125 MCG TABLET PO SCH (06:05)
[2019-09-04 06:08] LABS: Basophils % 0.2 % (0.0-0.8); Hematocrit 28.3 VOL% (35.7-47.0); Hemoglobin 9.3 GM/DL (12.0-16.0); Immature Granulocytes % 2.8 %; Immature Granulocytes Absolute 0.14 #; Lymphocytes # 0.6 10*3/uL (1.4-4.0); Lymphocytes % 11.9 % (21.3-54.2); Mean Corpuscular HGB Conc 32.9 GM/DL (32-36); Mean Corpuscular Volume 83.2 FL (87-102); Mean Platelet Volume 12.2 FL (9.6-12.0); Monocytes % 4.3 % (1.7-12.7); Neutrophils % 80.8 % (38.7-73.9); Platelet Count 140 T/CUMM (130-400); Red Cell Distribution Width 14.5 % (9.3-17.3); White Blood Count 4.9 T/CUMM (4-12)
[2019-09-04 06:33] LABS: Calcium 9.1 MG/DL (8.5-10.1); Osmolality,Calculated 267.1 MOS/KG (273-304)
[2019-09-04 06:38] LABS: Prealbumin 7.7 MG/DL (20-40)
[2019-09-04] MEDS: DORNASE ALFA 2.5 MG/2.5 ML VIAL RESP TX SCH ×2 (07:39→19:04)
[2019-09-04] MEDS: OXYBUTYNIN XL 10 MG TABLET PO SCH (08:35)
[2019-09-04] MEDS: SPIRONOLACTONE 25 MG TABLET PO SCH (08:35)
[2019-09-04] MEDS: predniSONE 5 MG TABLET PO SCH (08:35)
[2019-09-04] MEDS: ASPIRIN CHEW 81 MG TABLET PO SCH (08:35)
[2019-09-04] MEDS: PANTOPRAZOLE 40 MG TABLET PO SCH ×2 (08:35→18:17)
[2019-09-04] MEDS: URSODIOL 300 MG CAPSULE PO SCH ×2 (08:35→20:48)
[2019-09-04] MEDS: METOCLOPRAMIDE 10 MG TABLET PO SCH ×4 (08:35→20:49)
[2019-09-04] MEDS: NYSTATIN 500,000 UNIT/5 ML UDCUP SWISH/SWAL SCH ×4 (08:36→20:49)
[2019-09-04] MEDS: DESITIN 4OZ/NYSTATIN 15 GRAM MIXTURE PASTE TOP SCH ×2 (08:36→20:48)
[2019-09-04] MEDS: metOLazone 2.5 MG TABLET PO SCH (08:36)
[2019-09-04] MEDS: METHEN/SOD PHOS/METH BLUE/HYOS TABLET PO SCH ×4 (08:36→20:49)
[2019-09-04] MEDS: MAGNESIUM OXIDE 400 MG TABLET PO SCH ×2 (08:36→20:48)
[2019-09-04] MEDS: methylPREDNISolone SOD SUC 40 MG/1 ML VIAL IV SCH ×2 (11:23→22:39)
[2019-09-04] MEDS: POTASSIUM CHLORIDE RIDER 10 MEQ in PREMIX 1 EACH IV PRN ×3 (11:23→16:44)
[2019-09-04] MEDS: FLUCONAZOLE INJ 100 MG in IV BAG 1 EACH IV SCH (18:16)
[2019-09-04] MEDS: TRACE ELEMENTS (5) 1 ML, MULTIVITAMIN INJ 10 ML in AMINO ACIDS/DEXT/LYTES 4.25-5% 2,000 ML IV SCH (18:18)
[2019-09-04] MEDS: SIMVASTATIN 40 MG TABLET PO SCH (20:49)
[2019-09-05] MEDS: ALBUTEROL/IPRATROPIUM 3 ML NEB RESP TX SCH ×4 (00:14→19:19)
[2019-09-05] MEDS: MEROPENEM 500 MG in SODIUM CHLORIDE 0.9% 100 ML IV SCH ×4 (02:41→20:34)
[2019-09-05] MEDS: ACYCLOVIR 5% OINT 15 GM TUBE TOP SCH ×5 (05:33→22:43)
[2019-09-05 06:01] LABS: Hematocrit 27.5 VOL% (35.7-47.0); Hemoglobin 9.2 GM/DL (12.0-16.0); Immature Granulocytes % 4.3 %; Immature Granulocytes Absolute 0.35 #; Lymphocytes # 0.9 10*3/uL (1.4-4.0); Mean Corpuscular HGB Conc 33.5 GM/DL (32-36); Mean Corpuscular Volume 82.6 FL (87-102); Mean Platelet Volume 12.3 FL (9.6-12.0); Monocytes % 8.2 % (1.7-12.7); Neutrophils % 76.5 % (38.7-73.9); Platelet Count 194 T/CUMM (130-400); Red Blood Count 3.33 MC/CUMM (3.8-5.5); Red Cell Distribution Width 14.4 % (9.3-17.3); White Blood Count 8.2 T/CUMM (4-12)
[2019-09-05 06:29] LABS: Calcium 9.7 MG/DL (8.5-10.1); Osmolality,Calculated 260.9 MOS/KG (273-304)
[2019-09-05] MEDS: LEVOTHYROXINE 125 MCG TABLET PO SCH (06:31)
[2019-09-05] MEDS: MAGNESIUM SULF RIDER 2 GM in PREMIX 1 EACH IV PRN (06:49)
[2019-09-05] MEDS: DORNASE ALFA 2.5 MG/2.5 ML VIAL RESP TX SCH ×2 (07:19→19:19)
[2019-09-05] MEDS: METOCLOPRAMIDE 10 MG TABLET PO SCH ×4 (08:41→20:31)
[2019-09-05] MEDS: PANTOPRAZOLE 40 MG TABLET PO SCH ×2 (08:41→15:56)
[2019-09-05] MEDS: ASPIRIN CHEW 81 MG TABLET PO SCH (08:42)
[2019-09-05] MEDS: OXYBUTYNIN XL 10 MG TABLET PO SCH (08:42)
[2019-09-05] MEDS: SPIRONOLACTONE 25 MG TABLET PO SCH (08:42)
[2019-09-05] MEDS: NYSTATIN 500,000 UNIT/5 ML UDCUP SWISH/SWAL SCH ×4 (08:42→20:31)
[2019-09-05] MEDS: DESITIN 4OZ/NYSTATIN 15 GRAM MIXTURE PASTE TOP SCH ×2 (08:42→20:37)
[2019-09-05] MEDS: MAGNESIUM OXIDE 400 MG TABLET PO SCH ×2 (08:42→20:31)
[2019-09-05] MEDS: URSODIOL 300 MG CAPSULE PO SCH ×2 (08:42→20:31)
[2019-09-05] MEDS: METHEN/SOD PHOS/METH BLUE/HYOS TABLET PO SCH ×4 (08:43→20:31)
[2019-09-05] MEDS: methylPREDNISolone SOD SUC 40 MG/1 ML VIAL IV SCH ×2 (11:07→22:43)
[2019-09-05] MEDS ORDERED: FUROSEMIDE 20 MG/2 ML VIAL IV ONE (13:42)
[2019-09-05] MEDS: FLUCONAZOLE INJ 100 MG in IV BAG 1 EACH IV SCH (17:04)
[2019-09-05] MEDS: TRACE ELEMENTS (5) 1 ML, MULTIVITAMIN INJ 10 ML in AMINO ACIDS/DEXT/LYTES 4.25-5% 2,000 ML IV SCH (17:09)
[2019-09-05] MEDS: SIMVASTATIN 40 MG TABLET PO SCH (20:31)
[2019-09-05] MEDS ORDERED: VANCOMYCIN INJ 1,250 MG in SODIUM CHLORIDE 0.9% 250 ML IV SCH (22:00)
[2019-09-06] MEDS: MEROPENEM 500 MG in SODIUM CHLORIDE 0.9% 100 ML IV SCH ×4 (01:35→21:45)
[2019-09-06 04:42] LABS: INR 1.1; PT Patient Result 11.4 SECS (9.6-12.2)
[2019-09-06 04:44] LABS: Basophils % 0.1 % (0.0-0.8); Hematocrit 28.6 VOL% (35.7-47.0); Hemoglobin 9.4 GM/DL (12.0-16.0); Immature Granulocytes % 6.6 %; Immature Granulocytes Absolute 0.63 #; Lymphocytes # 0.9 10*3/uL (1.4-4.0); Lymphocytes % 9.2 % (21.3-54.2); Mean Corpuscular HGB Conc 32.9 GM/DL (32-36); Mean Corpuscular Volume 83.4 FL (87-102); Mean Platelet Volume 11.9 FL (9.6-12.0); Monocytes % 6.6 % (1.7-12.7); Neutrophils % 77.5 % (38.7-73.9); Platelet Count 230 T/CUMM (130-400); Red Blood Count 3.43 MC/CUMM (3.8-5.5); Red Cell Distribution Width 14.5 % (9.3-17.3); White Blood Count 9.6 T/CUMM (4-12)
[2019-09-06 05:05] LABS: Calcium 9.7 MG/DL (8.5-10.1); Osmolality,Calculated 274.8 MOS/KG (273-304)
[2019-09-06 05:09] LABS: Hypochromasia 1+; Lymphocytes 6 % (20-55); Platelet Estimate Adequate; Segmented Neutrophils 86 % (50-85); Total Cells Counted 100
[2019-09-06] MEDS: ACYCLOVIR 5% OINT 15 GM TUBE TOP SCH ×4 (05:30→22:02)
[2019-09-06] MEDS: LEVOTHYROXINE 125 MCG TABLET PO SCH (05:31)
[2019-09-06] MEDS: DORNASE ALFA 2.5 MG/2.5 ML VIAL RESP TX SCH ×2 (07:24→19:25)
[2019-09-06] MEDS: ALBUTEROL/IPRATROPIUM 3 ML NEB RESP TX SCH ×4 (07:24→19:19)
[2019-09-06] MEDS ORDERED: LIDOCAINE 1% 20 ML VIAL MISC INJ ONE (09:00)
[2019-09-06] MEDS ORDERED: LIDOCAINE 2% VISCOUS 100 ML BOTTLE SWISH/SPIT ONE (09:00)
[2019-09-06] MEDS ORDERED: LIDOCAINE 2% 20 ML VIAL RESP TX ONE (09:00)
[2019-09-06] MEDS ORDERED: DEXTROSE 50% 25 GM/50 ML VIAL IV PRN (10:19)
[2019-09-06] MEDS ORDERED: GLUCAGON 1 MG VIAL IM PRN (10:19)
[2019-09-06] MEDS: METOCLOPRAMIDE 10 MG TABLET PO SCH ×4 (11:14→21:44)
[2019-09-06] MEDS: predniSONE 5 MG TABLET PO SCH (11:14)
[2019-09-06] MEDS: PANTOPRAZOLE 40 MG TABLET PO SCH ×2 (11:14→17:41)
[2019-09-06] MEDS: ASPIRIN CHEW 81 MG TABLET PO SCH (11:15)
[2019-09-06] MEDS: OXYBUTYNIN XL 10 MG TABLET PO SCH (11:15)
[2019-09-06] MEDS: SPIRONOLACTONE 25 MG TABLET PO SCH (11:15)
[2019-09-06] MEDS: URSODIOL 300 MG CAPSULE PO SCH ×2 (11:15→21:44)
[2019-09-06] MEDS: NYSTATIN 500,000 UNIT/5 ML UDCUP SWISH/SWAL SCH ×4 (11:16→21:44)
[2019-09-06] MEDS: METHEN/SOD PHOS/METH BLUE/HYOS TABLET PO SCH ×4 (11:16→21:44)
[2019-09-06] MEDS: metOLazone 2.5 MG TABLET PO SCH (11:16)
[2019-09-06] MEDS: MAGNESIUM OXIDE 400 MG TABLET PO SCH ×2 (11:16→21:44)
[2019-09-06] MEDS: DESITIN 4OZ/NYSTATIN 15 GRAM MIXTURE PASTE TOP SCH ×2 (12:08→22:02)
[2019-09-06] MEDS: INSULIN REGULAR 100 UNIT/ML SUBCUT SCH ×2 (12:16→18:50)
[2019-09-06] MEDS: VANCOMYCIN INJ 1,000 MG in SODIUM CHLORIDE 0.9% 250 ML IV SCH (12:21)
[2019-09-06] MEDS: methylPREDNISolone SOD SUC 40 MG/1 ML VIAL IV SCH ×2 (12:22→22:40)
[2019-09-06] MEDS: ACETAMINOPHEN 325 MG TABLET PO PRN (15:05)
[2019-09-06] MEDS: FLUCONAZOLE INJ 100 MG in IV BAG 1 EACH IV SCH (17:42)
[2019-09-06] MEDS: POLYETHYLENE GLYCOL POWDER 17 GM PACK PO SCH (21:44)
[2019-09-06] MEDS: SIMVASTATIN 40 MG TABLET PO SCH (21:44)
[2019-09-06] MEDS: TRACE ELEMENTS (5) 1 ML, MULTIVITAMIN INJ 10 ML in AMINO ACIDS/DEXT/LYTES 4.25-5% 2,000 ML IV SCH (22:39)
[2019-09-07] MEDS: INSULIN REGULAR 100 UNIT/ML SUBCUT SCH ×4 (00:25→19:35)
[2019-09-07] MEDS: VANCOMYCIN INJ 1,000 MG in SODIUM CHLORIDE 0.9% 250 ML IV SCH ×2 (00:25→15:12)
[2019-09-07] MEDS: ALBUTEROL/IPRATROPIUM 3 ML NEB RESP TX SCH ×4 (00:42→18:50)
[2019-09-07] MEDS: MEROPENEM 500 MG in SODIUM CHLORIDE 0.9% 100 ML IV SCH ×4 (02:35→20:54)
[2019-09-07 04:41] LABS: Basophils % 0.1 % (0.0-0.8); Hematocrit 31.5 VOL% (35.7-47.0); Hemoglobin 10.4 GM/DL (12.0-16.0); Immature Granulocytes % 8.3 %; Immature Granulocytes Absolute 0.76 #; Lymphocytes % 10.6 % (21.3-54.2); Mean Corpuscular Volume 84.2 FL (87-102); Mean Platelet Volume 11.8 FL (9.6-12.0); Monocytes % 9.3 % (1.7-12.7); Neutrophils % 71.7 % (38.7-73.9); Platelet Count 250 T/CUMM (130-400); Red Blood Count 3.74 MC/CUMM (3.8-5.5); Red Cell Distribution Width 14.5 % (9.3-17.3); White Blood Count 9.1 T/CUMM (4-12)
[2019-09-07 04:50] LABS: INR 1.1; PT Patient Result 11.6 SECS (9.6-12.2); Partial Thromboplastin Time 24.5 SECS (20.8-36.0)
[2019-09-07 05:10] LABS: Band Neutrophils 4 % (0-10); Hypochromasia 1+; Lymphocytes 14 % (20-55); Platelet Estimate Adequate; Segmented Neutrophils 71 % (50-85); Total Cells Counted 100
[2019-09-07] MEDS: ACYCLOVIR 5% OINT 15 GM TUBE TOP SCH ×4 (06:05→23:17)
[2019-09-07] MEDS: LEVOTHYROXINE 125 MCG TABLET PO SCH (06:05)
[2019-09-07] MEDS: DORNASE ALFA 2.5 MG/2.5 ML VIAL RESP TX SCH ×2 (07:35→18:50)
[2019-09-07] MEDS ORDERED: LIDOCAINE 1% 20 ML VIAL MISC INJ ONE (08:00)
[2019-09-07] MEDS ORDERED: LIDOCAINE 2% VISCOUS 100 ML BOTTLE SWISH/SPIT ONE (08:00)
[2019-09-07] MEDS ORDERED: LIDOCAINE 2% 20 ML VIAL RESP TX ONE (08:00)
[2019-09-07] MEDS: PANTOPRAZOLE 40 MG TABLET PO SCH ×2 (17:53→18:31)
[2019-09-07] MEDS: METOCLOPRAMIDE 10 MG TABLET PO SCH ×2 (18:25→22:17)
[2019-09-07] MEDS: SPIRONOLACTONE 25 MG TABLET PO SCH (18:26)
[2019-09-07] MEDS: ASPIRIN CHEW 81 MG TABLET PO SCH (18:26)
[2019-09-07] MEDS: POLYETHYLENE GLYCOL POWDER 17 GM PACK PO SCH ×2 (18:26→22:17)
[2019-09-07] MEDS: OXYBUTYNIN XL 10 MG TABLET PO SCH (18:26)
[2019-09-07] MEDS: URSODIOL 300 MG CAPSULE PO SCH ×2 (18:26→22:17)
[2019-09-07] MEDS: MAGNESIUM OXIDE 400 MG TABLET PO SCH ×2 (18:26→22:17)
[2019-09-07] MEDS: NYSTATIN 500,000 UNIT/5 ML UDCUP SWISH/SWAL SCH ×2 (18:27→22:17)
[2019-09-07] MEDS: METHEN/SOD PHOS/METH BLUE/HYOS TABLET PO SCH ×3 (18:27→22:18)
[2019-09-07] MEDS: DESITIN 4OZ/NYSTATIN 15 GRAM MIXTURE PASTE TOP SCH ×2 (18:27→22:18)
[2019-09-07] MEDS: metOLazone 2.5 MG TABLET PO SCH (18:28)
[2019-09-07] MEDS: methylPREDNISolone SOD SUC 40 MG/1 ML VIAL IV SCH (18:29)
[2019-09-07] MEDS: TRACE ELEMENTS (5) 1 ML, MULTIVITAMIN INJ 10 ML in AMINO ACIDS/DEXT/LYTES 4.25-5% 2,000 ML IV SCH (19:32)
[2019-09-07] MEDS: FLUCONAZOLE INJ 100 MG in IV BAG 1 EACH IV SCH (20:18)
[2019-09-07] MEDS: FAT EMULSION 20% 250 ML IV SCH (21:44)
[2019-09-07] MEDS: SIMVASTATIN 40 MG TABLET PO SCH (22:18)
[2019-09-08] MEDS: ALBUTEROL/IPRATROPIUM 3 ML NEB RESP TX SCH ×4 (00:22→19:16)
[2019-09-08] MEDS: methylPREDNISolone SOD SUC 40 MG/1 ML VIAL IV SCH ×3 (01:13→23:34)
[2019-09-08] MEDS: INSULIN REGULAR 100 UNIT/ML SUBCUT SCH ×5 (01:15→23:44)
[2019-09-08] MEDS: LEVOTHYROXINE 125 MCG TABLET PO SCH (06:01)
[2019-09-08] MEDS: ACYCLOVIR 5% OINT 15 GM TUBE TOP SCH ×5 (06:01→21:32)
[2019-09-08] MEDS: DORNASE ALFA 2.5 MG/2.5 ML VIAL RESP TX SCH ×2 (07:08→19:16)
[2019-09-08 07:45] LABS: Basophils % 0.3 % (0.0-0.8); Eosinophils % 0.1 % (0.00-10.9); Hematocrit 33.8 VOL% (35.7-47.0); Hemoglobin 10.9 GM/DL (12.0-16.0); Immature Granulocytes % 10.3 %; Immature Granulocytes Absolute 1.48 #; Lymphocytes # 2.2 10*3/uL (1.4-4.0); Lymphocytes % 15.4 % (21.3-54.2); Mean Corpuscular HGB Conc 32.2 GM/DL (32-36); Mean Corpuscular Volume 84.3 FL (87-102); Mean Platelet Volume 11.1 FL (9.6-12.0); Monocytes % 5.6 % (1.7-12.7); Neutrophils % 68.3 % (38.7-73.9); Platelet Count 274 T/CUMM (130-400); Red Blood Count 4.01 MC/CUMM (3.8-5.5); Red Cell Distribution Width 14.7 % (9.3-17.3); White Blood Count 14.4 T/CUMM (4-12)
[2019-09-08 08:05] LABS: Band Neutrophils 2 % (0-10); Lymphocytes 20 % (20-55); Platelet Estimate Adequate; Segmented Neutrophils 71 % (50-85); Total Cells Counted 100
[2019-09-08 08:06] LABS: Hypochromasia 1+; Ovalocytes Slight
[2019-09-08] MEDS: MEROPENEM 500 MG in SODIUM CHLORIDE 0.9% 100 ML IV SCH ×3 (09:00→21:24)
[2019-09-08] MEDS: METHEN/SOD PHOS/METH BLUE/HYOS TABLET PO SCH ×4 (09:01→21:30)
[2019-09-08] MEDS: URSODIOL 300 MG CAPSULE PO SCH ×2 (09:01→21:30)
[2019-09-08] MEDS: predniSONE 5 MG TABLET PO SCH (09:01)
[2019-09-08] MEDS: NYSTATIN 500,000 UNIT/5 ML UDCUP SWISH/SWAL SCH ×4 (09:01→21:31)
[2019-09-08] MEDS: MAGNESIUM OXIDE 400 MG TABLET PO SCH ×2 (09:01→21:30)
[2019-09-08] MEDS: OXYBUTYNIN XL 10 MG TABLET PO SCH (09:01)
[2019-09-08] MEDS: ASPIRIN CHEW 81 MG TABLET PO SCH (09:01)
[2019-09-08] MEDS: PANTOPRAZOLE 40 MG TABLET PO SCH ×2 (09:01→15:49)
[2019-09-08] MEDS: metOLazone 2.5 MG TABLET PO SCH (09:01)
[2019-09-08] MEDS: ACETAMINOPHEN 325 MG TABLET PO PRN (09:02)
[2019-09-08] MEDS: SPIRONOLACTONE 25 MG TABLET PO SCH (09:02)
[2019-09-08] MEDS: POLYETHYLENE GLYCOL POWDER 17 GM PACK PO SCH ×3 (09:02→21:31)
[2019-09-08] MEDS: DESITIN 4OZ/NYSTATIN 15 GRAM MIXTURE PASTE TOP SCH ×2 (09:03→21:31)
[2019-09-08] MEDS: VANCOMYCIN INJ 1,000 MG in SODIUM CHLORIDE 0.9% 250 ML IV SCH ×3 (09:32→23:35)
[2019-09-08] MEDS: METOCLOPRAMIDE 10 MG/2 ML VIAL IV SCH ×3 (12:11→23:35)
[2019-09-08] MEDS: FAT EMULSION 20% 250 ML IV SCH (15:49)
[2019-09-08] MEDS: FLUCONAZOLE INJ 100 MG in IV BAG 1 EACH IV SCH (17:36)
[2019-09-08] MEDS: TRACE ELEMENTS (5) 1 ML, MULTIVITAMIN INJ 10 ML in AMINO ACIDS/DEXT/LYTES 4.25-5% 2,000 ML IV SCH (18:16)
[2019-09-08] MEDS: SIMVASTATIN 40 MG TABLET PO SCH (21:30)
[2019-09-09] MEDS: ALBUTEROL/IPRATROPIUM 3 ML NEB RESP TX SCH ×4 (00:02→19:23)
[2019-09-09] MEDS: MEROPENEM 500 MG in SODIUM CHLORIDE 0.9% 100 ML IV SCH ×5 (03:43→20:48)
[2019-09-09] MEDS: INSULIN REGULAR 100 UNIT/ML SUBCUT SCH ×3 (06:02→18:36)
[2019-09-09] MEDS: ACYCLOVIR 5% OINT 15 GM TUBE TOP SCH ×5 (06:03→23:49)
[2019-09-09] MEDS: LEVOTHYROXINE 125 MCG TABLET PO SCH (06:03)
[2019-09-09] MEDS: METOCLOPRAMIDE 10 MG/2 ML VIAL IV SCH ×3 (06:03→17:00)
[2019-09-09 06:08] LABS: INR 1.1; PT Patient Result 11.4 SECS (9.6-12.2); Partial Thromboplastin Time 23.3 SECS (20.8-36.0)
[2019-09-09 06:12] LABS: Basophils # 0.1 10*3/uL (0.0-0.2); Basophils % 0.3 % (0.0-0.8); Hematocrit 31.5 VOL% (35.7-47.0); Hemoglobin 10.2 GM/DL (12.0-16.0); Immature Granulocytes % 12.6 %; Immature Granulocytes Absolute 2.48 #; Lymphocytes # 1.3 10*3/uL (1.4-4.0); Lymphocytes % 6.5 % (21.3-54.2); Mean Corpuscular HGB Conc 32.4 GM/DL (32-36); Mean Platelet Volume 11.4 FL (9.6-12.0); Monocytes % 7.3 % (1.7-12.7); Neutrophils % 73.3 % (38.7-73.9); Platelet Count 268 T/CUMM (130-400); Red Blood Count 3.75 MC/CUMM (3.8-5.5); Red Cell Distribution Width 14.6 % (9.3-17.3); White Blood Count 19.7 T/CUMM (4-12)
[2019-09-09 06:21] LABS: Calcium 9.5 MG/DL (8.5-10.1); Osmolality,Calculated 272.7 MOS/KG (273-304)
[2019-09-09 06:42] LABS: Band Neutrophils 4 % (0-10); Lymphocytes 10 % (20-55); Platelet Estimate Normal; Segmented Neutrophils 81 % (50-85); Total Cells Counted 100
[2019-09-09 06:43] LABS: Acanthocytes 1+; Anisocytosis 1+; Macrocytosis 1+; Ovalocytes 2+
[2019-09-09] MEDS: DORNASE ALFA 2.5 MG/2.5 ML VIAL RESP TX SCH ×2 (07:10→19:23)
[2019-09-09] MEDS ORDERED: LIDOCAINE 1% 20 ML VIAL MISC INJ ONE (08:30)
[2019-09-09] MEDS ORDERED: LIDOCAINE 2% VISCOUS 100 ML BOTTLE SWISH/SPIT ONE (08:30)
[2019-09-09] MEDS ORDERED: LIDOCAINE 2% 20 ML VIAL RESP TX ONE (08:30)
[2019-09-09] MEDS: NYSTATIN 500,000 UNIT/5 ML UDCUP SWISH/SWAL SCH ×4 (11:02→20:48)
[2019-09-09] MEDS: URSODIOL 300 MG CAPSULE PO SCH ×2 (11:02→20:48)
[2019-09-09] MEDS: ASPIRIN CHEW 81 MG TABLET PO SCH (11:02)
[2019-09-09] MEDS: METHEN/SOD PHOS/METH BLUE/HYOS TABLET PO SCH ×4 (11:03→20:47)
[2019-09-09] MEDS: SPIRONOLACTONE 25 MG TABLET PO SCH (11:03)
[2019-09-09] MEDS: MAGNESIUM OXIDE 400 MG TABLET PO SCH ×2 (11:03→20:48)
[2019-09-09] MEDS: metOLazone 2.5 MG TABLET PO SCH (11:03)
[2019-09-09] MEDS: OXYBUTYNIN XL 10 MG TABLET PO SCH (11:03)
[2019-09-09] MEDS: PANTOPRAZOLE 40 MG TABLET PO SCH ×2 (11:03→16:24)
[2019-09-09] MEDS: methylPREDNISolone SOD SUC 40 MG/1 ML VIAL IV SCH ×2 (11:04→23:48)
[2019-09-09] MEDS: POLYETHYLENE GLYCOL POWDER 17 GM PACK PO SCH ×3 (11:07→20:48)
[2019-09-09] MEDS: DESITIN 4OZ/NYSTATIN 15 GRAM MIXTURE PASTE TOP SCH ×2 (11:07→21:06)
[2019-09-09] MEDS ORDERED: TUBERCULIN SKIN TEST 0.1 ML SYRINGE INTRADERM ONE (11:38)
[2019-09-09] MEDS: VANCOMYCIN INJ 1,000 MG in SODIUM CHLORIDE 0.9% 250 ML IV SCH (14:33)
[2019-09-09] MEDS: FLUCONAZOLE INJ 100 MG in IV BAG 1 EACH IV SCH (16:26)
[2019-09-09] MEDS: ALBUTEROL/IPRATROPIUM 3 ML NEB RESP TX PRN (16:50)
[2019-09-09] MEDS: ACETAMINOPHEN 325 MG TABLET PO PRN (16:58)
[2019-09-09] MEDS: FAT EMULSION 20% 250 ML IV SCH (16:59)
[2019-09-09] MEDS: TRACE ELEMENTS (5) 1 ML, MULTIVITAMIN INJ 10 ML in AMINO ACIDS/DEXT/LYTES 4.25-5% 2,000 ML IV SCH (17:22)
[2019-09-09] MEDS: SIMVASTATIN 40 MG TABLET PO SCH (20:47)
[2019-09-10] MEDS: ALBUTEROL/IPRATROPIUM 3 ML NEB RESP TX SCH ×4 (00:25→20:08)
[2019-09-10] MEDS: INSULIN REGULAR 100 UNIT/ML SUBCUT SCH ×4 (01:00→18:12)
[2019-09-10] MEDS: VANCOMYCIN INJ 1,000 MG in SODIUM CHLORIDE 0.9% 250 ML IV SCH (01:00)
[2019-09-10] MEDS: METOCLOPRAMIDE 10 MG/2 ML VIAL IV SCH ×4 (01:08→18:04)
[2019-09-10] MEDS: MEROPENEM 500 MG in SODIUM CHLORIDE 0.9% 100 ML IV SCH ×2 (03:23→08:15)
[2019-09-10] MEDS: ACYCLOVIR 5% OINT 15 GM TUBE TOP SCH ×5 (06:00→21:24)
[2019-09-10] MEDS: LEVOTHYROXINE 125 MCG TABLET PO SCH (06:00)
[2019-09-10] MEDS: DORNASE ALFA 2.5 MG/2.5 ML VIAL RESP TX SCH ×2 (07:29→20:18)
[2019-09-10] MEDS: metOLazone 2.5 MG TABLET PO SCH (08:16)
[2019-09-10] MEDS: NYSTATIN 500,000 UNIT/5 ML UDCUP SWISH/SWAL SCH ×4 (08:16→21:28)
[2019-09-10] MEDS: METHEN/SOD PHOS/METH BLUE/HYOS TABLET PO SCH ×4 (08:16→21:22)
[2019-09-10] MEDS: PANTOPRAZOLE 40 MG TABLET PO SCH ×2 (08:16→17:26)
[2019-09-10] MEDS: predniSONE 5 MG TABLET PO SCH (08:17)
[2019-09-10] MEDS: MAGNESIUM OXIDE 400 MG TABLET PO SCH ×2 (08:17→21:22)
[2019-09-10] MEDS: URSODIOL 300 MG CAPSULE PO SCH ×2 (08:17→21:24)
[2019-09-10] MEDS: ASPIRIN CHEW 81 MG TABLET PO SCH (08:17)
[2019-09-10 08:18] LABS: Basophils # 0.1 10*3/uL (0.0-0.2); Basophils % 0.3 % (0.0-0.8); Hematocrit 31.2 VOL% (35.7-47.0); Hemoglobin 10.2 GM/DL (12.0-16.0); Immature Granulocytes % 15.4 %; Immature Granulocytes Absolute 3.05 #; Lymphocytes # 1.7 10*3/uL (1.4-4.0); Lymphocytes % 8.6 % (21.3-54.2); Mean Corpuscular HGB Conc 32.7 GM/DL (32-36); Mean Corpuscular Volume 83.9 FL (87-102); Mean Platelet Volume 11.4 FL (9.6-12.0); Monocytes % 12.2 % (1.7-12.7); NRBC # 0.03 10*3/uL; Neutrophils % 63.5 % (38.7-73.9); Platelet Count 263 T/CUMM (130-400); Red Blood Count 3.72 MC/CUMM (3.8-5.5); Red Cell Distribution Width 14.7 % (9.3-17.3); White Blood Count 19.8 T/CUMM (4-12)
[2019-09-10] MEDS: OXYBUTYNIN XL 10 MG TABLET PO SCH (08:39)
[2019-09-10] MEDS: SPIRONOLACTONE 25 MG TABLET PO SCH (08:39)
[2019-09-10] MEDS: POLYETHYLENE GLYCOL POWDER 17 GM PACK PO SCH ×3 (08:39→21:23)
[2019-09-10] MEDS: DESITIN 4OZ/NYSTATIN 15 GRAM MIXTURE PASTE TOP SCH ×2 (08:41→21:24)
[2019-09-10 08:47] LABS: Lymphocytes 10 % (20-55); Nucleated Red Blood Cells 1 (0-5); Platelet Estimate Decreased; Segmented Neutrophils 75 % (50-85); Total Cells Counted 100
[2019-09-10 08:48] LABS: Anisocytosis 1+; Hypochromasia 1+
[2019-09-10 08:49] LABS: Atypical Lymphocytes Moderate
[2019-09-10 08:50] LABS: Ovalocytes Slight; Poikilocytosis 1+
[2019-09-10 08:54] LABS: Calcium 9.8 MG/DL (8.5-10.1); Osmolality,Calculated 267.8 MOS/KG (273-304)
[2019-09-10] MEDS: methylPREDNISolone SOD SUC 40 MG/1 ML VIAL IV SCH (11:49)
[2019-09-10] MEDS: FAT EMULSION 20% 250 ML IV SCH (17:25)
[2019-09-10] MEDS: TRACE ELEMENTS (5) 1 ML, MULTIVITAMIN INJ 10 ML in AMINO ACIDS/DEXT/LYTES 4.25-5% 2,000 ML IV SCH (17:39)
[2019-09-10] MEDS: ACETAMINOPHEN 325 MG TABLET PO PRN (18:04)
[2019-09-10] MEDS: ONDANSETRON 4 MG/2 ML VIAL IV PRN (19:25)
[2019-09-10] MEDS: SIMVASTATIN 40 MG TABLET PO SCH (21:22)
[2019-09-10] MEDS: VANCOMYCIN INJ 1,250 MG in SODIUM CHLORIDE 0.9% 250 ML IV SCH (21:28)
[2019-09-11] MEDS: INSULIN REGULAR 100 UNIT/ML SUBCUT SCH ×4 (01:35→18:38)
[2019-09-11] MEDS: methylPREDNISolone SOD SUC 40 MG/1 ML VIAL IV SCH ×2 (01:35→12:41)
[2019-09-11] MEDS: METOCLOPRAMIDE 10 MG/2 ML VIAL IV SCH ×4 (01:36→18:34)
[2019-09-11] MEDS: ALBUTEROL/IPRATROPIUM 3 ML NEB RESP TX SCH ×4 (02:00→19:04)
[2019-09-11 05:51] LABS: Basophils # 0.1 10*3/uL (0.0-0.2); Basophils % 0.4 % (0.0-0.8); Hematocrit 32.3 VOL% (35.7-47.0); Hemoglobin 10.5 GM/DL (12.0-16.0); Immature Granulocytes Absolute 3.89 #; Lymphocytes % 3.9 % (21.3-54.2); Mean Corpuscular HGB Conc 32.5 GM/DL (32-36); Mean Corpuscular Volume 85.4 FL (87-102); Mean Platelet Volume 11.1 FL (9.6-12.0); Monocytes % 14.5 % (1.7-12.7); NRBC # 0.04 10*3/uL; Neutrophils % 66.2 % (38.7-73.9); Platelet Count 252 T/CUMM (130-400); Red Blood Count 3.78 MC/CUMM (3.8-5.5); Red Cell Distribution Width 15.1 % (9.3-17.3); White Blood Count 25.9 T/CUMM (4-12)
[2019-09-11 06:16] LABS: Calcium 9.5 MG/DL (8.5-10.1); Osmolality,Calculated 277.7 MOS/KG (273-304)
[2019-09-11 06:36] LABS: Band Neutrophils 3 % (0-10); Lymphocytes 8 % (20-55); Metamyelocytes 2 %; Myelocytes 4 %; Segmented Neutrophils 73 % (50-85); Total Cells Counted 100
[2019-09-11 06:37] LABS: Hypochromasia 1+; Microcytosis 1+; Ovalocytes Few; Platelet Estimate Normal
[2019-09-11] MEDS: ACYCLOVIR 5% OINT 15 GM TUBE TOP SCH ×5 (06:47→22:39)
[2019-09-11] MEDS: LEVOTHYROXINE 125 MCG TABLET PO SCH (06:47)
[2019-09-11] MEDS: DORNASE ALFA 2.5 MG/2.5 ML VIAL RESP TX SCH ×2 (08:20→19:10)
[2019-09-11] MEDS: MAGNESIUM SULF RIDER 2 GM in PREMIX 1 EACH IV PRN (08:55)
[2019-09-11] MEDS: NYSTATIN 500,000 UNIT/5 ML UDCUP SWISH/SWAL SCH ×4 (08:56→22:38)
[2019-09-11] MEDS: ASPIRIN CHEW 81 MG TABLET PO SCH (08:56)
[2019-09-11] MEDS: MAGNESIUM OXIDE 400 MG TABLET PO SCH ×2 (08:57→22:38)
[2019-09-11] MEDS: metOLazone 2.5 MG TABLET PO SCH (08:57)
[2019-09-11] MEDS: SPIRONOLACTONE 25 MG TABLET PO SCH (08:57)
[2019-09-11] MEDS: URSODIOL 300 MG CAPSULE PO SCH ×2 (08:57→22:37)
[2019-09-11] MEDS: PANTOPRAZOLE 40 MG TABLET PO SCH ×2 (08:57→18:34)
[2019-09-11] MEDS: OXYBUTYNIN XL 10 MG TABLET PO SCH (08:57)
[2019-09-11] MEDS: DESITIN 4OZ/NYSTATIN 15 GRAM MIXTURE PASTE TOP SCH ×2 (08:58→22:39)
[2019-09-11] MEDS: POLYETHYLENE GLYCOL POWDER 17 GM PACK PO SCH ×3 (08:59→22:53)
[2019-09-11 10:07] LABS: Apearance,Urine CLEAR (Clear); Bacteria,Urine Occasional /HPF (Few); Bilirubin,Urine Negative (Negative); Blood, Urine Moderate mg/dL (Negative); Glucose,Urine (UA) Negative (Negative); Ketones,Urine Negative (Negative); Mucus,Urine Occasional /LPF (Occasional); Nitrite,Urine Negative (Negative); Protein,Urine Negative; RBC,Urine 63 /HPF (0-4); Squamous Epithelial Cell,Urine Occasional /HPF (0-10); Urine Color Yellow (Yellow); Urine Specific Gravity 1.015 (1.001-1.035); Urine Urobilinogen < 2.0 EU/DL (0.2-1.0); WBC,Urine 8 /HPF (0-6)
[2019-09-11] MEDS: FAT EMULSION 20% 250 ML IV SCH (15:16)
[2019-09-11] MEDS: TRACE ELEMENTS (5) 1 ML, MULTIVITAMIN INJ 10 ML in AMINO ACIDS/DEXT/LYTES 4.25-5% 2,000 ML IV SCH (19:01)
[2019-09-11] MEDS: SIMVASTATIN 40 MG TABLET PO SCH (22:38)
[2019-09-11] MEDS: VANCOMYCIN INJ 1,250 MG in SODIUM CHLORIDE 0.9% 250 ML IV SCH (22:38)
[2019-09-12] MEDS: INSULIN REGULAR 100 UNIT/ML SUBCUT SCH ×4 (00:19→18:47)
[2019-09-12] MEDS: METOCLOPRAMIDE 10 MG/2 ML VIAL IV SCH ×4 (00:20→18:46)
[2019-09-12] MEDS: methylPREDNISolone SOD SUC 40 MG/1 ML VIAL IV SCH ×2 (00:20→13:30)
[2019-09-12] MEDS: ALBUTEROL/IPRATROPIUM 3 ML NEB RESP TX SCH ×4 (01:04→18:50)
[2019-09-12 05:18] LABS: Basophils # 0.1 10*3/uL (0.0-0.2); Basophils % 0.4 % (0.0-0.8); Hematocrit 30.4 VOL% (35.7-47.0); Hemoglobin 9.9 GM/DL (12.0-16.0); Immature Granulocytes Absolute 4.08 #; Lymphocytes # 1.4 10*3/uL (1.4-4.0); Lymphocytes % 5.7 % (21.3-54.2); Mean Corpuscular HGB Conc 32.6 GM/DL (32-36); Mean Corpuscular Volume 84.7 FL (87-102); Mean Platelet Volume 11.6 FL (9.6-12.0); Monocytes % 11.8 % (1.7-12.7); NRBC # 0.04 10*3/uL; Neutrophils % 65.1 % (38.7-73.9); Platelet Count 194 T/CUMM (130-400); Red Blood Count 3.59 MC/CUMM (3.8-5.5); Red Cell Distribution Width 14.8 % (9.3-17.3); White Blood Count 23.9 T/CUMM (4-12)
[2019-09-12 05:40] LABS: Calcium 9.5 MG/DL (8.5-10.1); Osmolality,Calculated 277.7 MOS/KG (273-304)
[2019-09-12 06:08] LABS: Band Neutrophils 2 % (0-10); Lymphocytes 13 % (20-55); Segmented Neutrophils 70 % (50-85); Total Cells Counted 100
[2019-09-12 06:09] LABS: Platelet Estimate Normal
[2019-09-12] MEDS: ACYCLOVIR 5% OINT 15 GM TUBE TOP SCH ×5 (06:50→23:01)
[2019-09-12] MEDS: LEVOTHYROXINE 125 MCG TABLET PO SCH (06:50)
[2019-09-12] MEDS: DORNASE ALFA 2.5 MG/2.5 ML VIAL RESP TX SCH ×2 (07:41→18:50)
[2019-09-12] MEDS: SPIRONOLACTONE 25 MG TABLET PO SCH (09:15)
[2019-09-12] MEDS: MAGNESIUM OXIDE 400 MG TABLET PO SCH ×2 (09:15→23:05)
[2019-09-12] MEDS: POLYETHYLENE GLYCOL POWDER 17 GM PACK PO SCH ×3 (09:15→23:20)
[2019-09-12] MEDS: ASPIRIN CHEW 81 MG TABLET PO SCH (09:15)
[2019-09-12] MEDS: URSODIOL 300 MG CAPSULE PO SCH ×2 (09:16→23:05)
[2019-09-12] MEDS: NYSTATIN 500,000 UNIT/5 ML UDCUP SWISH/SWAL SCH ×4 (09:16→23:08)
[2019-09-12] MEDS: PANTOPRAZOLE 40 MG TABLET PO SCH ×2 (09:16→16:30)
[2019-09-12] MEDS: OXYBUTYNIN XL 10 MG TABLET PO SCH (09:16)
[2019-09-12] MEDS: DESITIN 4OZ/NYSTATIN 15 GRAM MIXTURE PASTE TOP SCH ×2 (09:16→23:01)
[2019-09-12] MEDS: predniSONE 5 MG TABLET PO SCH (09:16)
[2019-09-12] MEDS: metOLazone 2.5 MG TABLET PO SCH (09:16)
[2019-09-12] MEDS: FAT EMULSION 20% 250 ML IV SCH (15:06)
[2019-09-12] MEDS: ACETAMINOPHEN 325 MG TABLET PO PRN ×2 (16:29→23:05)
[2019-09-12] MEDS: TRACE ELEMENTS (5) 1 ML, MULTIVITAMIN INJ 10 ML in AMINO ACIDS/DEXT/LYTES 4.25-5% 2,000 ML IV SCH (16:31)
[2019-09-12] MEDS: VANCOMYCIN INJ 1,250 MG in SODIUM CHLORIDE 0.9% 250 ML IV SCH (22:58)
[2019-09-12] MEDS: SIMVASTATIN 40 MG TABLET PO SCH (23:08)
[2019-09-13] MEDS: ALBUTEROL/IPRATROPIUM 3 ML NEB RESP TX SCH ×4 (00:12→19:00)
[2019-09-13] MEDS: methylPREDNISolone SOD SUC 40 MG/1 ML VIAL IV SCH ×2 (01:09→12:34)
[2019-09-13] MEDS: INSULIN REGULAR 100 UNIT/ML SUBCUT SCH ×4 (01:09→18:40)
[2019-09-13] MEDS: METOCLOPRAMIDE 10 MG/2 ML VIAL IV SCH ×4 (01:09→17:09)
[2019-09-13 05:00] LABS: Basophils # 0.1 10*3/uL (0.0-0.2); Basophils % 0.4 % (0.0-0.8); Hematocrit 31.3 VOL% (35.7-47.0); Hemoglobin 10.3 GM/DL (12.0-16.0); Immature Granulocytes % 17.5 %; Immature Granulocytes Absolute 5.15 #; Lymphocytes # 1.4 10*3/uL (1.4-4.0); Lymphocytes % 4.9 % (21.3-54.2); Mean Corpuscular HGB Conc 32.9 GM/DL (32-36); Mean Corpuscular Volume 83.7 FL (87-102); Mean Platelet Volume 11.7 FL (9.6-12.0); Monocytes % 9.6 % (1.7-12.7); NRBC # 0.03 10*3/uL; Neutrophils % 67.6 % (38.7-73.9); Platelet Count 181 T/CUMM (130-400); Red Blood Count 3.74 MC/CUMM (3.8-5.5); Red Cell Distribution Width 14.8 % (9.3-17.3); White Blood Count 29.4 T/CUMM (4-12)
[2019-09-13 05:17] LABS: Calcium 9.6 MG/DL (8.5-10.1); Osmolality,Calculated 275.9 MOS/KG (273-304)
[2019-09-13 05:29] LABS: Band Neutrophils 1 % (0-10); Hypochromasia 1+; Lymphocytes 12 % (20-55); Ovalocytes Slight; Platelet Estimate Adequate; Segmented Neutrophils 79 % (50-85); Total Cells Counted 100
[2019-09-13 05:30] LABS: Prealbumin 35.5 MG/DL (20-40)
[2019-09-13 05:31] LABS: Microcytosis Slight
[2019-09-13] MEDS: LEVOTHYROXINE 125 MCG TABLET PO SCH (06:07)
[2019-09-13] MEDS: ACYCLOVIR 5% OINT 15 GM TUBE TOP SCH ×5 (06:09→21:00)
[2019-09-13] MEDS: DORNASE ALFA 2.5 MG/2.5 ML VIAL RESP TX SCH ×2 (08:21→19:00)
[2019-09-13] MEDS: NYSTATIN 500,000 UNIT/5 ML UDCUP SWISH/SWAL SCH ×4 (10:16→20:57)
[2019-09-13] MEDS: PANTOPRAZOLE 40 MG TABLET PO SCH ×2 (10:16→17:16)
[2019-09-13] MEDS: MAGNESIUM OXIDE 400 MG TABLET PO SCH ×2 (10:17→20:56)
[2019-09-13] MEDS: POLYETHYLENE GLYCOL POWDER 17 GM PACK PO SCH ×4 (10:17→20:56)
[2019-09-13] MEDS: OXYBUTYNIN XL 10 MG TABLET PO SCH (10:17)
[2019-09-13] MEDS: URSODIOL 300 MG CAPSULE PO SCH ×2 (10:17→20:56)
[2019-09-13] MEDS: ASPIRIN CHEW 81 MG TABLET PO SCH (10:17)
[2019-09-13] MEDS: metOLazone 2.5 MG TABLET PO SCH (10:17)
[2019-09-13] MEDS: SPIRONOLACTONE 25 MG TABLET PO SCH (10:17)
[2019-09-13] MEDS: DESITIN 4OZ/NYSTATIN 15 GRAM MIXTURE PASTE TOP SCH ×2 (10:18→20:57)
[2019-09-13] MEDS ORDERED: FUROSEMIDE 40 MG/4 ML VIAL IV ONE (10:34)
[2019-09-13] MEDS: FAT EMULSION 20% 250 ML IV SCH (17:09)
[2019-09-13] MEDS: TRACE ELEMENTS (5) 1 ML, MULTIVITAMIN INJ 10 ML in AMINO ACIDS/DEXT/LYTES 4.25-5% 2,000 ML IV SCH (17:10)
[2019-09-13] MEDS: SIMVASTATIN 40 MG TABLET PO SCH (20:56)
[2019-09-13] MEDS: VANCOMYCIN INJ 1,250 MG in SODIUM CHLORIDE 0.9% 250 ML IV SCH (21:17)
[2019-09-14] MEDS: INSULIN REGULAR 100 UNIT/ML SUBCUT SCH ×5 (00:24→21:04)
[2019-09-14] MEDS: METOCLOPRAMIDE 10 MG/2 ML VIAL IV SCH ×4 (00:30→17:00)
[2019-09-14] MEDS: ALBUTEROL/IPRATROPIUM 3 ML NEB RESP TX SCH ×4 (01:00→19:15)
[2019-09-14 05:34] LABS: Basophils % 0.1 % (0.0-0.8); Eosinophils # 0.1 10*3/uL (0.0-0.87); Eosinophils % 0.2 % (0.00-10.9); Hemoglobin 11.2 GM/DL (12.0-16.0); Immature Granulocytes % 13.8 %; Immature Granulocytes Absolute 6.39 #; Lymphocytes # 2.4 10*3/uL (1.4-4.0); Lymphocytes % 5.1 % (21.3-54.2); Mean Corpuscular HGB Conc 32.9 GM/DL (32-36); Mean Corpuscular Volume 84.4 FL (87-102); Monocytes % 18.2 % (1.7-12.7); NRBC # 0.05 10*3/uL; Neutrophils % 62.6 % (38.7-73.9); Platelet Count 186 T/CUMM (130-400); Red Blood Count 4.03 MC/CUMM (3.8-5.5); Red Cell Distribution Width 14.9 % (9.3-17.3)
[2019-09-14 05:39] LABS: White Blood Count 46.5 T/CUMM (4-12)
[2019-09-14 05:47] LABS: Osmolality,Calculated 271.8 MOS/KG (273-304)
[2019-09-14] MEDS: ACYCLOVIR 5% OINT 15 GM TUBE TOP SCH ×5 (05:49→21:07)
[2019-09-14] MEDS: LEVOTHYROXINE 125 MCG TABLET PO SCH (05:50)
[2019-09-14 07:17] LABS: Band Neutrophils 3 % (0-10); Hypochromasia 1+; Lymphocytes 8 % (20-55); Ovalocytes Slight; Platelet Estimate Adequate; Segmented Neutrophils 70 % (50-85); Total Cells Counted 100
[2019-09-14 07:18] LABS: Microcytosis Slight
[2019-09-14] MEDS: DORNASE ALFA 2.5 MG/2.5 ML VIAL RESP TX SCH ×2 (07:29→19:15)
[2019-09-14 09:07] LABS: Basophils # 0.1 10*3/uL (0.0-0.2); Basophils % 0.2 % (0.0-0.8); Eosinophils # 0.1 10*3/uL (0.0-0.87); Eosinophils % 0.1 % (0.00-10.9); Hematocrit 34.7 VOL% (35.7-47.0); Hemoglobin 11.1 GM/DL (12.0-16.0); Immature Granulocytes Absolute 6.54 #; Lymphocytes # 2.5 10*3/uL (1.4-4.0); Lymphocytes % 5.3 % (21.3-54.2); Mean Corpuscular Volume 85.7 FL (87-102); Monocytes % 18.5 % (1.7-12.7); NRBC # 0.04 10*3/uL; Neutrophils % 61.9 % (38.7-73.9); Platelet Count 184 T/CUMM (130-400); Red Blood Count 4.05 MC/CUMM (3.8-5.5); Red Cell Distribution Width 15.1 % (9.3-17.3)
[2019-09-14 09:16] LABS: White Blood Count 46.6 T/CUMM (4-12)
[2019-09-14 09:35] LABS: Band Neutrophils 4 % (0-10); Hypochromasia 1+; Lymphocytes 8 % (20-55); Metamyelocytes 1 %; Microcytosis Slight; Ovalocytes Slight; Segmented Neutrophils 70 % (50-85); Total Cells Counted 100
[2019-09-14 09:36] LABS: Platelet Estimate Adequate
[2019-09-14] MEDS: POLYETHYLENE GLYCOL POWDER 17 GM PACK PO SCH ×3 (10:18→21:08)
[2019-09-14] MEDS: NYSTATIN 500,000 UNIT/5 ML UDCUP SWISH/SWAL SCH ×4 (10:18→21:06)
[2019-09-14] MEDS: OXYBUTYNIN XL 10 MG TABLET PO SCH (10:18)
[2019-09-14] MEDS: metOLazone 2.5 MG TABLET PO SCH (10:18)
[2019-09-14] MEDS: ASPIRIN CHEW 81 MG TABLET PO SCH (10:18)
[2019-09-14] MEDS: predniSONE 5 MG TABLET PO SCH (10:18)
[2019-09-14] MEDS: SPIRONOLACTONE 25 MG TABLET PO SCH (10:19)
[2019-09-14] MEDS: URSODIOL 300 MG CAPSULE PO SCH ×2 (10:19→21:06)
[2019-09-14] MEDS: DESITIN 4OZ/NYSTATIN 15 GRAM MIXTURE PASTE TOP SCH ×2 (10:19→21:07)
[2019-09-14] MEDS: MAGNESIUM OXIDE 400 MG TABLET PO SCH ×2 (10:19→21:07)
[2019-09-14] MEDS: PANTOPRAZOLE 40 MG TABLET PO SCH ×2 (10:19→17:08)
[2019-09-14] MEDS: methylPREDNISolone SOD SUC 40 MG/1 ML VIAL IV SCH (10:20)
[2019-09-14] MEDS: ALBUTEROL/IPRATROPIUM 3 ML NEB RESP TX PRN (13:26)
[2019-09-14] MEDS: FAT EMULSION 20% 250 ML IV SCH (15:59)
[2019-09-14] MEDS: FUROSEMIDE 40 MG/4 ML VIAL IV SCH (17:00)
[2019-09-14] MEDS: FLUCONAZOLE 200 MG TABLET PO SCH (17:00)
[2019-09-14] MEDS: SIMVASTATIN 40 MG TABLET PO SCH (21:07)
[2019-09-14] MEDS: VANCOMYCIN INJ 1,250 MG in SODIUM CHLORIDE 0.9% 250 ML IV SCH (21:07)
[2019-09-15] MEDS: ALBUTEROL/IPRATROPIUM 3 ML NEB RESP TX SCH ×4 (00:28→20:28)
[2019-09-15] MEDS: METOCLOPRAMIDE 10 MG/2 ML VIAL IV SCH ×3 (05:18→12:55)
[2019-09-15] MEDS: ACYCLOVIR 5% OINT 15 GM TUBE TOP SCH ×5 (05:32→22:12)
[2019-09-15 05:54] LABS: Basophils % 0.1 % (0.0-0.8); Eosinophils # 0.1 10*3/uL (0.0-0.87); Eosinophils % 0.1 % (0.00-10.9); Hematocrit 34.8 VOL% (35.7-47.0); Hemoglobin 11.3 GM/DL (12.0-16.0); Immature Granulocytes % 11.5 %; Immature Granulocytes Absolute 4.96 #; Lymphocytes # 2.3 10*3/uL (1.4-4.0); Lymphocytes % 5.4 % (21.3-54.2); Mean Corpuscular HGB Conc 32.5 GM/DL (32-36); Mean Corpuscular Volume 83.7 FL (87-102); Mean Platelet Volume 12.7 FL (9.6-12.0); Monocytes % 17.7 % (1.7-12.7); Neutrophils % 65.2 % (38.7-73.9); Platelet Count 176 T/CUMM (130-400); Red Blood Count 4.16 MC/CUMM (3.8-5.5); Red Cell Distribution Width 15.3 % (9.3-17.3)
[2019-09-15 05:57] LABS: White Blood Count 43.2 T/CUMM (4-12)
[2019-09-15] MEDS: LEVOTHYROXINE 125 MCG TABLET PO SCH (06:05)
[2019-09-15 06:08] LABS: Calcium 9.5 MG/DL (8.5-10.1); Osmolality,Calculated 271.9 MOS/KG (273-304)
[2019-09-15 06:19] LABS: Band Neutrophils 3 % (0-10); Hypochromasia Slight; Lymphocytes 10 % (20-55); Platelet Estimate Normal; Segmented Neutrophils 68 % (50-85); Total Cells Counted 100
[2019-09-15 06:20] LABS: Atypical Lymphocytes Few; Elliptocytes Few
[2019-09-15] MEDS: DORNASE ALFA 2.5 MG/2.5 ML VIAL RESP TX SCH ×2 (07:10→19:38)
[2019-09-15] MEDS: URSODIOL 300 MG CAPSULE PO SCH ×2 (09:56→22:10)
[2019-09-15] MEDS: FLUCONAZOLE 200 MG TABLET PO SCH (09:56)
[2019-09-15] MEDS: metOLazone 2.5 MG TABLET PO SCH (09:56)
[2019-09-15] MEDS: FUROSEMIDE 40 MG/4 ML VIAL IV SCH (09:56)
[2019-09-15] MEDS: NYSTATIN 500,000 UNIT/5 ML UDCUP SWISH/SWAL SCH ×4 (09:56→22:10)
[2019-09-15] MEDS: ASPIRIN CHEW 81 MG TABLET PO SCH (09:56)
[2019-09-15] MEDS: methylPREDNISolone SOD SUC 40 MG/1 ML VIAL IV SCH (09:57)
[2019-09-15] MEDS: MAGNESIUM OXIDE 400 MG TABLET PO SCH ×2 (09:57→22:11)
[2019-09-15] MEDS: PANTOPRAZOLE 40 MG TABLET PO SCH ×2 (09:57→17:53)
[2019-09-15] MEDS: OXYBUTYNIN XL 10 MG TABLET PO SCH (09:57)
[2019-09-15] MEDS: SPIRONOLACTONE 25 MG TABLET PO SCH (09:58)
[2019-09-15] MEDS: INSULIN REGULAR 100 UNIT/ML SUBCUT SCH ×4 (09:58→22:06)
[2019-09-15] MEDS: POLYETHYLENE GLYCOL POWDER 17 GM PACK PO SCH ×3 (09:58→22:11)
[2019-09-15] MEDS: DESITIN 4OZ/NYSTATIN 15 GRAM MIXTURE PASTE TOP SCH ×2 (09:59→22:12)
[2019-09-15] MEDS: METOCLOPRAMIDE 10 MG/10 ML UDCUP PO SCH ×2 (17:53→22:10)
[2019-09-15] MEDS: VANCOMYCIN INJ 1,250 MG in SODIUM CHLORIDE 0.9% 250 ML IV SCH (22:05)
[2019-09-15] MEDS: SIMVASTATIN 40 MG TABLET PO SCH (22:11)
[2019-09-16] MEDS: ALBUTEROL/IPRATROPIUM 3 ML NEB RESP TX SCH ×3 (02:49→12:40)
[2019-09-16 05:41] LABS: Basophils # 0.2 10*3/uL (0.0-0.2); Basophils % 0.4 % (0.0-0.8); Eosinophils # 0.2 10*3/uL (0.0-0.87); Eosinophils % 0.4 % (0.00-10.9); Hematocrit 34.5 VOL% (35.7-47.0); Hemoglobin 11.3 GM/DL (12.0-16.0); Immature Granulocytes % 10.3 %; Immature Granulocytes Absolute 4.24 #; Lymphocytes # 2.2 10*3/uL (1.4-4.0); Lymphocytes % 5.2 % (21.3-54.2); Mean Corpuscular HGB Conc 32.8 GM/DL (32-36); Mean Corpuscular Volume 83.7 FL (87-102); Mean Platelet Volume 12.5 FL (9.6-12.0); Monocytes % 16.3 % (1.7-12.7); Neutrophils % 67.4 % (38.7-73.9); Platelet Count 164 T/CUMM (130-400); Red Blood Count 4.12 MC/CUMM (3.8-5.5); Red Cell Distribution Width 15.3 % (9.3-17.3)
[2019-09-16 05:46] LABS: White Blood Count 41.3 T/CUMM (4-12)
[2019-09-16 06:00] LABS: Calcium 9.9 MG/DL (8.5-10.1); Osmolality,Calculated 277.4 MOS/KG (273-304)
[2019-09-16 06:07] LABS: Band Neutrophils 5 % (0-10); Lymphocytes 4 % (20-55); Metamyelocytes 1 %; Myelocytes 1 %; Segmented Neutrophils 70 % (50-85); Total Cells Counted 100
[2019-09-16 06:08] LABS: Atypical Lymphocytes Few; Hypochromasia 1+; Platelet Estimate Normal
[2019-09-16 06:09] LABS: Ovalocytes 1+
[2019-09-16] MEDS: ACYCLOVIR 5% OINT 15 GM TUBE TOP SCH ×2 (06:17→09:29)
[2019-09-16] MEDS: LEVOTHYROXINE 125 MCG TABLET PO SCH (06:17)
[2019-09-16] MEDS: DORNASE ALFA 2.5 MG/2.5 ML VIAL RESP TX SCH (07:27)
[2019-09-16] MEDS ORDERED: predniSONE 20 MG TABLET PO SCH (09:00)
[2019-09-16] MEDS ORDERED: FUROSEMIDE 40 MG TABLET PO SCH (09:00)
[2019-09-16] MEDS: SPIRONOLACTONE 25 MG TABLET PO SCH (09:14)
[2019-09-16] MEDS: URSODIOL 300 MG CAPSULE PO SCH (09:14)
[2019-09-16] MEDS: MAGNESIUM OXIDE 400 MG TABLET PO SCH (09:14)
[2019-09-16] MEDS: OXYBUTYNIN XL 10 MG TABLET PO SCH (09:14)
[2019-09-16] MEDS: FLUCONAZOLE 200 MG TABLET PO SCH (09:15)
[2019-09-16] MEDS: ASPIRIN CHEW 81 MG TABLET PO SCH (09:15)
[2019-09-16] MEDS: metOLazone 2.5 MG TABLET PO SCH (09:16)
[2019-09-16] MEDS: ACETAMINOPHEN 325 MG TABLET PO PRN (09:16)
[2019-09-16] MEDS: METOCLOPRAMIDE 10 MG/10 ML UDCUP PO SCH (09:16)
[2019-09-16] MEDS: INSULIN REGULAR 100 UNIT/ML SUBCUT SCH ×2 (09:17→12:08)
[2019-09-16] MEDS: NYSTATIN 500,000 UNIT/5 ML UDCUP SWISH/SWAL SCH (09:18)
[2019-09-16] MEDS: DESITIN 4OZ/NYSTATIN 15 GRAM MIXTURE PASTE TOP SCH (09:18)
[2019-09-16] MEDS: POLYETHYLENE GLYCOL POWDER 17 GM PACK PO SCH (09:18)
[2019-09-16] MEDS: PANTOPRAZOLE 40 MG TABLET PO SCH (09:23)
[2019-09-16 11:33] VITALS: BP 119/72
[2019-09-16] MEDS ORDERED: INFLUENZA VIRUS VACCINE 0.5 ML SYRINGE IM ONE (14:15)
== END 2019-09-16 14:42 | DRG 388 ==
LOC: N.EDINP 11:05 → N.ED 11:05 → N.5E 13:37 → SUATTDRO 08-27 09:54 → N.5E 09-10 20:12
PROVIDERS: ADMIT Internal Medicine; ATTEND Internal Medicine

== ENCOUNTER 2019-09-23 09:15 | Inpatient (IN) ==
[2019-09-23] MEDS ORDERED: DOCUSATE SODIUM 100 MG CAPSULE PO PRN (14:59)
[2019-09-23] MEDS ORDERED: ALBUTEROL/IPRATROPIUM 3 ML NEB RESP TX PRN (14:59)
[2019-09-23] MEDS ORDERED: ONDANSETRON 4 MG/2 ML VIAL IV PRN (14:59)
[2019-09-23] MEDS ORDERED: AZITHROMYCIN INJ 500 MG in SODIUM CHLORIDE 0.9% 250 ML IV SCH (15:30)
[2019-09-23] MEDS: cefTRIAXone 1,000 MG in SYRINGE 1 EACH IV SCH (15:54)
[2019-09-23] MEDS: methylPREDNISolone SOD SUC 40 MG/1 ML VIAL IV SCH ×2 (15:54→22:02)
[2019-09-23 16:42] LABS: Thyroid Stimulating Hormone 0.101 uIU/ml (0.358-3.74)
[2019-09-23] MEDS: METOCLOPRAMIDE 5 MG TABLET PO SCH ×2 (17:08→21:27)
[2019-09-23] MEDS: NYSTATIN 500,000 UNIT/5 ML UDCUP SWISH/SWAL SCH ×2 (17:09→21:28)
[2019-09-23] MEDS: ARFORMOTEROL 15 MCG/2 ML NEB RESP TX SCH (20:39)
[2019-09-23] MEDS: BUDESONIDE 0.25 MG/2 ML NEB RESP TX SCH (20:39)
[2019-09-23] MEDS: MONTELUKAST 10 MG TABLET PO SCH (21:26)
[2019-09-23] MEDS: MAGNESIUM OXIDE 400 MG TABLET PO SCH (21:27)
[2019-09-23] MEDS: URSODIOL 300 MG CAPSULE PO SCH (21:27)
[2019-09-23] MEDS: POTASSIUM CHLORIDE 10 MEQ TABLET PO SCH (21:27)
[2019-09-23] MEDS: ASCORBIC ACID 500 MG TABLET PO SCH (21:27)
[2019-09-23] MEDS: ENOXAPARIN 30 MG/0.3 ML SYRINGE SUBCUT SCH (21:27)
[2019-09-23] MEDS: SIMVASTATIN 40 MG TABLET PO SCH (21:27)
[2019-09-23] MEDS: POLYETHYLENE GLYCOL POWDER 17 GM PACK PO SCH (21:28)
[2019-09-23] MEDS: DESITIN 4OZ/NYSTATIN 15 GRAM MIXTURE PASTE TOP SCH (22:02)
[2019-09-24 05:39] LABS: Basophils # 0.1 10*3/uL (0.0-0.2); Basophils % 0.3 % (0.0-0.8); Hematocrit 31.7 VOL% (35.7-47.0); Hemoglobin 10.2 GM/DL (12.0-16.0); Immature Granulocytes Absolute 1.54 #; Lymphocytes # 1.2 10*3/uL (1.4-4.0); Lymphocytes % 6.4 % (21.3-54.2); Mean Corpuscular HGB Conc 32.2 GM/DL (32-36); Mean Platelet Volume 13.8 FL (9.6-12.0); Monocytes % 2.2 % (1.7-12.7); NRBC # 0.03 10*3/uL; Neutrophils % 83.1 % (38.7-73.9); Platelet Count 122 T/CUMM (130-400); Red Blood Count 3.73 MC/CUMM (3.8-5.5); Red Cell Distribution Width 17.2 % (9.3-17.3); White Blood Count 19.2 T/CUMM (4-12)
[2019-09-24 06:01] LABS: Calcium 9.5 MG/DL (8.5-10.1); Osmolality,Calculated 279.5 MOS/KG (273-304)
[2019-09-24] MEDS ORDERED: LEVOTHYROXINE 125 MCG TABLET PO SCH (06:30)
[2019-09-24 06:37] LABS: Lymphocytes 6 % (20-55); Platelet Estimate Decreased; Polychromasia Few; Segmented Neutrophils 91 % (50-85); Total Cells Counted 100
[2019-09-24] MEDS: methylPREDNISolone SOD SUC 40 MG/1 ML VIAL IV SCH ×3 (07:06→22:42)
[2019-09-24] MEDS: METOCLOPRAMIDE 5 MG TABLET PO SCH ×4 (07:06→21:55)
[2019-09-24] MEDS: BUDESONIDE 0.25 MG/2 ML NEB RESP TX SCH ×2 (08:17→19:00)
[2019-09-24] MEDS: ARFORMOTEROL 15 MCG/2 ML NEB RESP TX SCH ×2 (08:17→19:10)
[2019-09-24] MEDS ORDERED: GLUCAGON 1 MG VIAL IM PRN (08:51)
[2019-09-24] MEDS ORDERED: DEXTROSE 50% 25 GM/50 ML VIAL IV PRN (08:51)
[2019-09-24] MEDS ORDERED: DEXTROSE 10% 250 ML BAG IV PRN (08:55)
[2019-09-24] MEDS: MULTIVITAMIN (CENTRUM) TABLET PO SCH (10:31)
[2019-09-24] MEDS: URSODIOL 300 MG CAPSULE PO SCH ×2 (10:31→21:55)
[2019-09-24] MEDS: OXYBUTYNIN XL 10 MG TABLET PO SCH (10:32)
[2019-09-24] MEDS: SPIRONOLACTONE 25 MG TABLET PO SCH (10:32)
[2019-09-24] MEDS: MAGNESIUM OXIDE 400 MG TABLET PO SCH ×2 (10:32→21:54)
[2019-09-24] MEDS: LACTOBACILLUS ACIDOPHILUS/BULGARICUS CAPLET PO SCH (10:32)
[2019-09-24] MEDS: NYSTATIN 500,000 UNIT/5 ML UDCUP SWISH/SWAL SCH ×4 (10:33→21:56)
[2019-09-24] MEDS: PANTOPRAZOLE 40 MG TABLET PO SCH (10:33)
[2019-09-24] MEDS: ASPIRIN CHEW 81 MG TABLET PO SCH (10:33)
[2019-09-24] MEDS: POLYETHYLENE GLYCOL POWDER 17 GM PACK PO SCH ×3 (10:34→21:56)
[2019-09-24] MEDS: POTASSIUM CHLORIDE 10 MEQ TABLET PO SCH ×3 (10:38→21:55)
[2019-09-24] MEDS: ASCORBIC ACID 500 MG TABLET PO SCH ×2 (10:38→21:55)
[2019-09-24] MEDS: SELENIUM 200 MCG TABLET PO SCH (10:39)
[2019-09-24] MEDS: CHOLECALCIFEROL 5,000 UNIT TABLET PO SCH (10:39)
[2019-09-24] MEDS ORDERED: INSULIN LISPRO 100 UNIT/ML SUBCUT SCH (11:30)
[2019-09-24] MEDS: INSULIN LISPRO 100 UNIT/ML SUBCUT SCH ×3 (13:28→21:53)
[2019-09-24] MEDS: FLUCONAZOLE 200 MG TABLET PO SCH (13:29)
[2019-09-24] MEDS: SULFAMETHOX/TRIMETHOPRIM 800-160 MG TABLET PO SCH ×2 (13:29→21:55)
[2019-09-24] MEDS: DESITIN 4OZ/NYSTATIN 15 GRAM MIXTURE PASTE TOP SCH ×2 (13:30→21:57)
[2019-09-24] MEDS: FAMOTIDINE 20 MG TABLET PO SCH (13:30)
[2019-09-24] MEDS: ALBUTEROL/IPRATROPIUM 3 ML NEB RESP TX SCH ×3 (14:20→23:30)
[2019-09-24] MEDS: DORNASE ALFA 2.5 MG/2.5 ML VIAL RESP TX SCH ×2 (14:20→19:20)
[2019-09-24] MEDS: cefTRIAXone 1,000 MG in SYRINGE 1 EACH IV SCH (14:50)
[2019-09-24] MEDS: metOLazone 2.5 MG TABLET PO SCH (18:07)
[2019-09-24] MEDS: ENOXAPARIN 30 MG/0.3 ML SYRINGE SUBCUT SCH (21:54)
[2019-09-24] MEDS: SIMVASTATIN 40 MG TABLET PO SCH (21:55)
[2019-09-24] MEDS: MONTELUKAST 10 MG TABLET PO SCH (21:55)
[2019-09-25 04:54] LABS: Basophils % 0.1 % (0.0-0.8); Eosinophils # 0.1 10*3/uL (0.0-0.87); Eosinophils % 0.2 % (0.00-10.9); Hematocrit 28.3 VOL% (35.7-47.0); Hemoglobin 9.3 GM/DL (12.0-16.0); Immature Granulocytes % 8.1 %; Immature Granulocytes Absolute 1.67 #; Lymphocytes # 0.9 10*3/uL (1.4-4.0); Lymphocytes % 4.1 % (21.3-54.2); Mean Corpuscular HGB Conc 32.9 GM/DL (32-36); Mean Corpuscular Volume 83.5 FL (87-102); Mean Platelet Volume 13.6 FL (9.6-12.0); Monocytes % 4.7 % (1.7-12.7); NRBC # 0.03 10*3/uL; Neutrophils % 82.8 % (38.7-73.9); Platelet Count 131 T/CUMM (130-400); Red Blood Count 3.39 MC/CUMM (3.8-5.5); Red Cell Distribution Width 17.3 % (9.3-17.3); White Blood Count 20.6 T/CUMM (4-12)
[2019-09-25 05:16] LABS: Calcium 9.7 MG/DL (8.5-10.1); Osmolality,Calculated 274.9 MOS/KG (273-304)
[2019-09-25 05:40] LABS: Acanthocytes Few; Band Neutrophils 6 % (0-10); Eosinophils 2 % (0-10); Lymphocytes 5 % (20-55); Ovalocytes 2+; Platelet Estimate Decreased; Segmented Neutrophils 83 % (50-85); Total Cells Counted 100
[2019-09-25] MEDS: LEVOTHYROXINE 100 MCG TABLET PO SCH (06:25)
[2019-09-25] MEDS: ALBUTEROL/IPRATROPIUM 3 ML NEB RESP TX SCH ×3 (07:22→19:40)
[2019-09-25] MEDS: DORNASE ALFA 2.5 MG/2.5 ML VIAL RESP TX SCH ×2 (07:22→19:40)
[2019-09-25] MEDS: BUDESONIDE 0.25 MG/2 ML NEB RESP TX SCH ×2 (07:22→19:40)
[2019-09-25] MEDS: ARFORMOTEROL 15 MCG/2 ML NEB RESP TX SCH ×2 (07:22→19:40)
[2019-09-25] MEDS: METOCLOPRAMIDE 5 MG TABLET PO SCH ×4 (08:13→21:41)
[2019-09-25] MEDS: methylPREDNISolone SOD SUC 40 MG/1 ML VIAL IV SCH ×3 (08:13→23:08)
[2019-09-25] MEDS: INSULIN LISPRO 100 UNIT/ML SUBCUT SCH ×4 (08:15→21:43)
[2019-09-25] MEDS: LACTOBACILLUS ACIDOPHILUS/BULGARICUS CAPLET PO SCH (10:13)
[2019-09-25] MEDS: OXYBUTYNIN XL 10 MG TABLET PO SCH (10:13)
[2019-09-25] MEDS: ASPIRIN CHEW 81 MG TABLET PO SCH (10:13)
[2019-09-25] MEDS: POTASSIUM CHLORIDE 10 MEQ TABLET PO SCH (10:13)
[2019-09-25] MEDS: ASCORBIC ACID 500 MG TABLET PO SCH ×2 (10:14→21:42)
[2019-09-25] MEDS: SULFAMETHOX/TRIMETHOPRIM 800-160 MG TABLET PO SCH ×2 (10:14→21:41)
[2019-09-25] MEDS: FLUCONAZOLE 200 MG TABLET PO SCH (10:14)
[2019-09-25] MEDS: CHOLECALCIFEROL 5,000 UNIT TABLET PO SCH (10:15)
[2019-09-25] MEDS: SELENIUM 200 MCG TABLET PO SCH (10:15)
[2019-09-25] MEDS: URSODIOL 300 MG CAPSULE PO SCH ×2 (10:16→21:41)
[2019-09-25] MEDS: MAGNESIUM OXIDE 400 MG TABLET PO SCH ×2 (10:16→21:42)
[2019-09-25] MEDS: FAMOTIDINE 20 MG TABLET PO SCH (10:16)
[2019-09-25] MEDS: NYSTATIN 500,000 UNIT/5 ML UDCUP SWISH/SWAL SCH ×5 (10:17→21:42)
[2019-09-25] MEDS: MULTIVITAMIN (CENTRUM) TABLET PO SCH (10:17)
[2019-09-25] MEDS: PANTOPRAZOLE 40 MG TABLET PO SCH (10:17)
[2019-09-25] MEDS: DESITIN 4OZ/NYSTATIN 15 GRAM MIXTURE PASTE TOP SCH ×2 (10:18→21:43)
[2019-09-25] MEDS: POLYETHYLENE GLYCOL POWDER 17 GM PACK PO SCH ×3 (10:18→21:40)
[2019-09-25] MEDS: cefTRIAXone 1,000 MG in SYRINGE 1 EACH IV SCH (16:36)
[2019-09-25] MEDS: MONTELUKAST 10 MG TABLET PO SCH (21:42)
[2019-09-25] MEDS: SIMVASTATIN 40 MG TABLET PO SCH (21:42)
[2019-09-25] MEDS: ENOXAPARIN 30 MG/0.3 ML SYRINGE SUBCUT SCH (21:42)
[2019-09-25] MEDS: ACETAMINOPHEN 325 MG TABLET PO PRN (22:12)
[2019-09-26] MEDS: ALBUTEROL/IPRATROPIUM 3 ML NEB RESP TX SCH ×4 (00:36→19:39)
[2019-09-26 04:49] LABS: Basophils # 0.1 10*3/uL (0.0-0.2); Basophils % 0.2 % (0.0-0.8); Hemoglobin 9.6 GM/DL (12.0-16.0); Immature Granulocytes % 9.1 %; Immature Granulocytes Absolute 1.98 #; Lymphocytes # 0.7 10*3/uL (1.4-4.0); Lymphocytes % 3.4 % (21.3-54.2); Mean Corpuscular Volume 84.5 FL (87-102); Mean Platelet Volume 13.4 FL (9.6-12.0); Monocytes % 3.8 % (1.7-12.7); NRBC # 0.07 10*3/uL; Neutrophils % 83.5 % (38.7-73.9); Platelet Count 123 T/CUMM (130-400); Red Blood Count 3.55 MC/CUMM (3.8-5.5); Red Cell Distribution Width 17.3 % (9.3-17.3); White Blood Count 21.8 T/CUMM (4-12)
[2019-09-26 05:11] LABS: Calcium 9.6 MG/DL (8.5-10.1); Osmolality,Calculated 271.2 MOS/KG (273-304)
[2019-09-26 05:13] LABS: Band Neutrophils 1 % (0-10); Lymphocytes 6 % (20-55); Segmented Neutrophils 90 % (50-85); Total Cells Counted 100
[2019-09-26 05:14] LABS: Hypochromasia 1+
[2019-09-26] MEDS: LEVOTHYROXINE 100 MCG TABLET PO SCH (06:49)
[2019-09-26] MEDS: BUDESONIDE 0.25 MG/2 ML NEB RESP TX SCH ×2 (07:05→19:39)
[2019-09-26] MEDS: ARFORMOTEROL 15 MCG/2 ML NEB RESP TX SCH ×2 (07:05→19:39)
[2019-09-26] MEDS: DORNASE ALFA 2.5 MG/2.5 ML VIAL RESP TX SCH ×2 (07:19→19:39)
[2019-09-26] MEDS: INSULIN LISPRO 100 UNIT/ML SUBCUT SCH ×4 (09:41→21:56)
[2019-09-26] MEDS: POLYETHYLENE GLYCOL POWDER 17 GM PACK PO SCH ×3 (09:41→21:56)
[2019-09-26] MEDS: methylPREDNISolone SOD SUC 40 MG/1 ML VIAL IV SCH ×3 (09:41→22:13)
[2019-09-26] MEDS: FLUCONAZOLE 200 MG TABLET PO SCH (09:42)
[2019-09-26] MEDS: OXYBUTYNIN XL 10 MG TABLET PO SCH (09:42)
[2019-09-26] MEDS: METOCLOPRAMIDE 5 MG TABLET PO SCH ×4 (09:42→21:55)
[2019-09-26] MEDS: ASPIRIN CHEW 81 MG TABLET PO SCH (09:42)
[2019-09-26] MEDS: SELENIUM 200 MCG TABLET PO SCH (09:42)
[2019-09-26] MEDS: MAGNESIUM OXIDE 400 MG TABLET PO SCH ×2 (09:43→21:55)
[2019-09-26] MEDS: PANTOPRAZOLE 40 MG TABLET PO SCH (09:43)
[2019-09-26] MEDS: CHOLECALCIFEROL 5,000 UNIT TABLET PO SCH (09:43)
[2019-09-26] MEDS: LACTOBACILLUS ACIDOPHILUS/BULGARICUS CAPLET PO SCH (09:43)
[2019-09-26] MEDS: FAMOTIDINE 20 MG TABLET PO SCH (09:43)
[2019-09-26] MEDS: ASCORBIC ACID 500 MG TABLET PO SCH ×2 (09:43→21:55)
[2019-09-26] MEDS: MULTIVITAMIN (CENTRUM) TABLET PO SCH (09:43)
[2019-09-26] MEDS: SULFAMETHOX/TRIMETHOPRIM 800-160 MG TABLET PO SCH (09:44)
[2019-09-26] MEDS: URSODIOL 300 MG CAPSULE PO SCH ×2 (09:45→21:55)
[2019-09-26] MEDS: DESITIN 4OZ/NYSTATIN 15 GRAM MIXTURE PASTE TOP SCH ×2 (09:45→21:57)
[2019-09-26] MEDS: NYSTATIN 500,000 UNIT/5 ML UDCUP SWISH/SWAL SCH ×4 (09:45→21:56)
[2019-09-26] MEDS: LEVOFLOXACIN INJ 500 MG in PREMIX 1 EACH IV SCH (10:01)
[2019-09-26] MEDS: SODIUM CHLORIDE 0.9% 1,000 ML IV SCH (11:30)
[2019-09-26] MEDS: ACETAMINOPHEN 325 MG TABLET PO PRN (11:35)
[2019-09-26] MEDS ORDERED: FUROSEMIDE 20 MG/2 ML VIAL IV ONE (14:43)
[2019-09-26] MEDS: cefTRIAXone 1,000 MG in SYRINGE 1 EACH IV SCH (15:01)
[2019-09-26] MEDS: SIMVASTATIN 40 MG TABLET PO SCH (21:55)
[2019-09-26] MEDS: MONTELUKAST 10 MG TABLET PO SCH (21:55)
[2019-09-26] MEDS: ENOXAPARIN 30 MG/0.3 ML SYRINGE SUBCUT SCH (21:56)
[2019-09-27] MEDS: ALBUTEROL/IPRATROPIUM 3 ML NEB RESP TX SCH ×4 (00:31→18:30)
[2019-09-27] MEDS: SODIUM CHLORIDE 0.9% 1,000 ML IV SCH ×2 (03:06→17:14)
[2019-09-27 06:06] LABS: Basophils # 0.1 10*3/uL (0.0-0.2); Basophils % 0.2 % (0.0-0.8); Eosinophils # 0.1 10*3/uL (0.0-0.87); Eosinophils % 0.3 % (0.00-10.9); Hematocrit 29.7 VOL% (35.7-47.0); Hemoglobin 9.8 GM/DL (12.0-16.0); Immature Granulocytes % 11.5 %; Immature Granulocytes Absolute 2.39 #; Lymphocytes # 0.7 10*3/uL (1.4-4.0); Lymphocytes % 3.6 % (21.3-54.2); Mean Corpuscular Volume 83.2 FL (87-102); Monocytes % 4.1 % (1.7-12.7); NRBC # 0.05 10*3/uL; Neutrophils % 80.3 % (38.7-73.9); Platelet Count 120 T/CUMM (130-400); Red Blood Count 3.57 MC/CUMM (3.8-5.5); Red Cell Distribution Width 17.3 % (9.3-17.3); White Blood Count 20.8 T/CUMM (4-12)
[2019-09-27 06:19] LABS: Calcium 9.5 MG/DL (8.5-10.1); Osmolality,Calculated 283.5 MOS/KG (273-304)
[2019-09-27 06:29] LABS: Lymphocytes 4 % (20-55); Platelet Estimate Decreased; Polychromasia Few; Segmented Neutrophils 93 % (50-85); Total Cells Counted 100
[2019-09-27] MEDS: LEVOTHYROXINE 100 MCG TABLET PO SCH (06:32)
[2019-09-27] MEDS: BUDESONIDE 0.25 MG/2 ML NEB RESP TX SCH ×2 (07:23→18:30)
[2019-09-27] MEDS: DORNASE ALFA 2.5 MG/2.5 ML VIAL RESP TX SCH ×2 (07:23→18:30)
[2019-09-27] MEDS: ARFORMOTEROL 15 MCG/2 ML NEB RESP TX SCH ×2 (07:23→18:30)
[2019-09-27] MEDS: ASCORBIC ACID 500 MG TABLET PO SCH ×2 (09:10→21:01)
[2019-09-27] MEDS: SELENIUM 200 MCG TABLET PO SCH (09:10)
[2019-09-27] MEDS: METOCLOPRAMIDE 5 MG TABLET PO SCH ×4 (09:10→21:00)
[2019-09-27] MEDS: MAGNESIUM OXIDE 400 MG TABLET PO SCH ×2 (09:10→21:00)
[2019-09-27] MEDS: URSODIOL 300 MG CAPSULE PO SCH ×2 (09:11→20:58)
[2019-09-27] MEDS: metOLazone 2.5 MG TABLET PO SCH (09:11)
[2019-09-27] MEDS: INSULIN LISPRO 100 UNIT/ML SUBCUT SCH ×4 (09:11→20:57)
[2019-09-27] MEDS: ASPIRIN CHEW 81 MG TABLET PO SCH (09:11)
[2019-09-27] MEDS: PANTOPRAZOLE 40 MG TABLET PO SCH (09:11)
[2019-09-27] MEDS: POLYETHYLENE GLYCOL POWDER 17 GM PACK PO SCH ×3 (09:11→21:00)
[2019-09-27] MEDS: FLUCONAZOLE 200 MG TABLET PO SCH (09:11)
[2019-09-27] MEDS: SPIRONOLACTONE 25 MG TABLET PO SCH (09:11)
[2019-09-27] MEDS: LACTOBACILLUS ACIDOPHILUS/BULGARICUS CAPLET PO SCH (09:11)
[2019-09-27] MEDS: OXYBUTYNIN XL 10 MG TABLET PO SCH (09:11)
[2019-09-27] MEDS: MULTIVITAMIN (CENTRUM) TABLET PO SCH (09:11)
[2019-09-27] MEDS: CHOLECALCIFEROL 5,000 UNIT TABLET PO SCH (09:11)
[2019-09-27] MEDS: methylPREDNISolone SOD SUC 40 MG/1 ML VIAL IV SCH (09:12)
[2019-09-27] MEDS: NYSTATIN 500,000 UNIT/5 ML UDCUP SWISH/SWAL SCH ×4 (09:12→20:59)
[2019-09-27] MEDS: DESITIN 4OZ/NYSTATIN 15 GRAM MIXTURE PASTE TOP SCH ×2 (09:13→21:01)
[2019-09-27] MEDS: FAMOTIDINE 20 MG TABLET PO SCH (09:13)
[2019-09-27] MEDS: LEVOFLOXACIN INJ 500 MG in PREMIX 1 EACH IV SCH (09:13)
[2019-09-27] MEDS ORDERED: MAGNESIUM SULF RIDER 2 GM in PREMIX 1 EACH IV ONE (10:23)
[2019-09-27] MEDS: cefTRIAXone 1,000 MG in SYRINGE 1 EACH IV SCH (17:10)
[2019-09-27] MEDS: ACETAMINOPHEN 325 MG TABLET PO PRN (18:40)
[2019-09-27] MEDS: ENOXAPARIN 30 MG/0.3 ML SYRINGE SUBCUT SCH (20:58)
[2019-09-27] MEDS: MONTELUKAST 10 MG TABLET PO SCH (21:00)
[2019-09-27] MEDS: SIMVASTATIN 40 MG TABLET PO SCH (21:01)
[2019-09-28] MEDS: LEVOTHYROXINE 100 MCG TABLET PO SCH (05:56)
[2019-09-28] MEDS: SODIUM CHLORIDE 0.9% 1,000 ML IV SCH ×2 (05:56→18:35)
[2019-09-28 06:11] LABS: Basophils # 0.1 10*3/uL (0.0-0.2); Basophils % 0.4 % (0.0-0.8); Eosinophils % 0.1 % (0.00-10.9); Hematocrit 30.9 VOL% (35.7-47.0); Hemoglobin 10.1 GM/DL (12.0-16.0); Immature Granulocytes % 13.1 %; Immature Granulocytes Absolute 4.57 #; Lymphocytes # 1.1 10*3/uL (1.4-4.0); Lymphocytes % 3.3 % (21.3-54.2); Mean Corpuscular HGB Conc 32.7 GM/DL (32-36); Mean Platelet Volume 13.1 FL (9.6-12.0); Monocytes % 8.7 % (1.7-12.7); NRBC # 0.06 10*3/uL; Neutrophils % 74.4 % (38.7-73.9); Platelet Count 120 T/CUMM (130-400); Red Blood Count 3.68 MC/CUMM (3.8-5.5); Red Cell Distribution Width 17.7 % (9.3-17.3); White Blood Count 34.8 T/CUMM (4-12)
[2019-09-28 06:30] LABS: Calcium 9.6 MG/DL (8.5-10.1); Osmolality,Calculated 273.5 MOS/KG (273-304)
[2019-09-28 06:59] LABS: Lymphocytes 1 % (20-55); Segmented Neutrophils 86 % (50-85); Total Cells Counted 100
[2019-09-28 07:00] LABS: Platelet Estimate Decreased; Polychromasia Slight
[2019-09-28] MEDS: ALBUTEROL/IPRATROPIUM 3 ML NEB RESP TX SCH ×4 (07:00→20:03)
[2019-09-28] MEDS: BUDESONIDE 0.25 MG/2 ML NEB RESP TX SCH ×2 (07:00→20:03)
[2019-09-28] MEDS: ARFORMOTEROL 15 MCG/2 ML NEB RESP TX SCH ×2 (07:00→20:03)
[2019-09-28] MEDS: DORNASE ALFA 2.5 MG/2.5 ML VIAL RESP TX SCH ×2 (07:20→20:03)
[2019-09-28] MEDS: FLUCONAZOLE 200 MG TABLET PO SCH (09:48)
[2019-09-28] MEDS: CHOLECALCIFEROL 5,000 UNIT TABLET PO SCH (09:48)
[2019-09-28] MEDS: ASCORBIC ACID 500 MG TABLET PO SCH ×2 (09:48→20:41)
[2019-09-28] MEDS: OXYBUTYNIN XL 10 MG TABLET PO SCH (09:48)
[2019-09-28] MEDS: MULTIVITAMIN (CENTRUM) TABLET PO SCH (09:49)
[2019-09-28] MEDS: FAMOTIDINE 20 MG TABLET PO SCH (09:49)
[2019-09-28] MEDS: LACTOBACILLUS ACIDOPHILUS/BULGARICUS CAPLET PO SCH (09:49)
[2019-09-28] MEDS: ASPIRIN CHEW 81 MG TABLET PO SCH (09:49)
[2019-09-28] MEDS: MAGNESIUM OXIDE 400 MG TABLET PO SCH ×2 (09:49→20:41)
[2019-09-28] MEDS: PANTOPRAZOLE 40 MG TABLET PO SCH (09:50)
[2019-09-28] MEDS: SELENIUM 200 MCG TABLET PO SCH (09:50)
[2019-09-28] MEDS: METOCLOPRAMIDE 5 MG TABLET PO SCH ×4 (09:50→20:41)
[2019-09-28] MEDS: URSODIOL 300 MG CAPSULE PO SCH ×2 (09:50→20:41)
[2019-09-28] MEDS: metOLazone 2.5 MG TABLET PO SCH (09:50)
[2019-09-28] MEDS: SPIRONOLACTONE 25 MG TABLET PO SCH (09:50)
[2019-09-28] MEDS: NYSTATIN 500,000 UNIT/5 ML UDCUP SWISH/SWAL SCH ×4 (09:51→20:40)
[2019-09-28] MEDS: INSULIN LISPRO 100 UNIT/ML SUBCUT SCH ×4 (09:51→20:40)
[2019-09-28] MEDS: POLYETHYLENE GLYCOL POWDER 17 GM PACK PO SCH ×3 (09:52→20:41)
[2019-09-28] MEDS: LEVOFLOXACIN INJ 500 MG in PREMIX 1 EACH IV SCH (09:52)
[2019-09-28] MEDS: methylPREDNISolone SOD SUC 40 MG/1 ML VIAL IV SCH (12:55)
[2019-09-28] MEDS: DESITIN 4OZ/NYSTATIN 15 GRAM MIXTURE PASTE TOP SCH ×2 (12:56→20:48)
[2019-09-28] MEDS: FUROSEMIDE 40 MG/4 ML VIAL IV SCH (18:26)
[2019-09-28] MEDS: ENOXAPARIN 30 MG/0.3 ML SYRINGE SUBCUT SCH (20:40)
[2019-09-28] MEDS: SIMVASTATIN 40 MG TABLET PO SCH (20:41)
[2019-09-28] MEDS: MONTELUKAST 10 MG TABLET PO SCH (20:41)
[2019-09-29] MEDS: ALBUTEROL/IPRATROPIUM 3 ML NEB RESP TX SCH ×4 (01:22→19:12)
[2019-09-29 05:02] LABS: Basophils # 0.1 10*3/uL (0.0-0.2); Basophils % 0.2 % (0.0-0.8); Eosinophils # 0.1 10*3/uL (0.0-0.87); Eosinophils % 0.3 % (0.00-10.9); Hematocrit 34.4 VOL% (35.7-47.0); Hemoglobin 11.2 GM/DL (12.0-16.0); Immature Granulocytes % 13.8 %; Lymphocytes # 1.6 10*3/uL (1.4-4.0); Lymphocytes % 3.5 % (21.3-54.2); Mean Corpuscular HGB Conc 32.6 GM/DL (32-36); Mean Corpuscular Volume 83.9 FL (87-102); Mean Platelet Volume 13.2 FL (9.6-12.0); Monocytes % 7.1 % (1.7-12.7); Neutrophils % 75.1 % (38.7-73.9); Platelet Count 127 T/CUMM (130-400); Red Cell Distribution Width 17.7 % (9.3-17.3)
[2019-09-29 05:08] LABS: Calcium 10.3 MG/DL (8.5-10.1); Osmolality,Calculated 266.8 MOS/KG (273-304)
[2019-09-29 05:18] LABS: White Blood Count 44.9 T/CUMM (4-12)
[2019-09-29 05:50] LABS: Lymphocytes 5 % (20-55); Segmented Neutrophils 88 % (50-85); Total Cells Counted 100
[2019-09-29 05:51] LABS: Hypochromasia 1+; Ovalocytes 2+; Platelet Estimate Normal; Polychromasia Few
[2019-09-29] MEDS: DORNASE ALFA 2.5 MG/2.5 ML VIAL RESP TX SCH ×2 (07:19→19:12)
[2019-09-29] MEDS: ARFORMOTEROL 15 MCG/2 ML NEB RESP TX SCH ×2 (07:19→19:12)
[2019-09-29] MEDS: BUDESONIDE 0.25 MG/2 ML NEB RESP TX SCH ×2 (07:19→19:12)
[2019-09-29] MEDS ORDERED: MAGNESIUM SULF RIDER 4 GM in PREMIX 1 EACH IV PRN (09:40)
[2019-09-29] MEDS ORDERED: MAGNESIUM SULF RIDER 2 GM in PREMIX 1 EACH IV PRN (09:40)
[2019-09-29] MEDS: INSULIN LISPRO 100 UNIT/ML SUBCUT SCH ×4 (09:56→20:58)
[2019-09-29] MEDS: INSULIN GLARGINE 100 UNIT/ML SUBCUT SCH (09:57)
[2019-09-29] MEDS: ASCORBIC ACID 500 MG TABLET PO SCH ×2 (09:58→20:58)
[2019-09-29] MEDS: ASPIRIN CHEW 81 MG TABLET PO SCH (09:58)
[2019-09-29] MEDS: SELENIUM 200 MCG TABLET PO SCH (09:59)
[2019-09-29] MEDS: LACTOBACILLUS ACIDOPHILUS/BULGARICUS CAPLET PO SCH (09:59)
[2019-09-29] MEDS: NYSTATIN 500,000 UNIT/5 ML UDCUP SWISH/SWAL SCH ×4 (09:59→20:57)
[2019-09-29] MEDS: MULTIVITAMIN (CENTRUM) TABLET PO SCH (09:59)
[2019-09-29] MEDS: CHOLECALCIFEROL 5,000 UNIT TABLET PO SCH (09:59)
[2019-09-29] MEDS: URSODIOL 300 MG CAPSULE PO SCH ×2 (09:59→21:00)
[2019-09-29] MEDS: POLYETHYLENE GLYCOL POWDER 17 GM PACK PO SCH ×3 (09:59→20:57)
[2019-09-29] MEDS: MAGNESIUM OXIDE 400 MG TABLET PO SCH ×2 (09:59→20:59)
[2019-09-29] MEDS: PANTOPRAZOLE 40 MG TABLET PO SCH (09:59)
[2019-09-29] MEDS: METOCLOPRAMIDE 5 MG TABLET PO SCH ×4 (09:59→20:59)
[2019-09-29] MEDS: FLUCONAZOLE 200 MG TABLET PO SCH (10:00)
[2019-09-29] MEDS: OXYBUTYNIN XL 10 MG TABLET PO SCH (10:00)
[2019-09-29] MEDS: methylPREDNISolone SOD SUC 40 MG/1 ML VIAL IV SCH (10:00)
[2019-09-29] MEDS: FAMOTIDINE 20 MG TABLET PO SCH (10:00)
[2019-09-29] MEDS: FUROSEMIDE 40 MG/4 ML VIAL IV SCH (10:02)
[2019-09-29] MEDS: LEVOFLOXACIN INJ 500 MG in PREMIX 1 EACH IV SCH (10:05)
[2019-09-29] MEDS: DESITIN 4OZ/NYSTATIN 15 GRAM MIXTURE PASTE TOP SCH ×2 (10:07→21:01)
[2019-09-29] MEDS: PIPERACILLIN/TAZOBACTAM 3,375 MG in SODIUM CHLORIDE 0.9% 100 ML IV SCH ×2 (12:02→18:17)
[2019-09-29] MEDS: metOLazone 5 MG TABLET PO SCH (12:26)
[2019-09-29] MEDS: metOLazone 2.5 MG TABLET PO SCH (16:07)
[2019-09-29] MEDS: ENOXAPARIN 30 MG/0.3 ML SYRINGE SUBCUT SCH (20:58)
[2019-09-29] MEDS: MONTELUKAST 10 MG TABLET PO SCH (21:00)
[2019-09-29] MEDS: SPIRONOLACTONE 25 MG TABLET PO SCH (21:00)
[2019-09-29] MEDS: SIMVASTATIN 40 MG TABLET PO SCH (21:00)
[2019-09-30] MEDS: ALBUTEROL/IPRATROPIUM 3 ML NEB RESP TX SCH ×5 (00:15→19:20)
[2019-09-30] MEDS: PIPERACILLIN/TAZOBACTAM 3,375 MG in SODIUM CHLORIDE 0.9% 100 ML IV SCH (00:30)
[2019-09-30 07:12] LABS: Basophils # 0.1 10*3/uL (0.0-0.2); Basophils % 0.3 % (0.0-0.8); Hematocrit 30.8 VOL% (35.7-47.0); Hemoglobin 10.2 GM/DL (12.0-16.0); Immature Granulocytes % 12.4 %; Immature Granulocytes Absolute 4.98 #; Lymphocytes % 4.9 % (21.3-54.2); Mean Corpuscular HGB Conc 33.1 GM/DL (32-36); Mean Corpuscular Volume 83.2 FL (87-102); Mean Platelet Volume 12.8 FL (9.6-12.0); Monocytes % 7.9 % (1.7-12.7); NRBC # 0.06 10*3/uL; Neutrophils % 74.5 % (38.7-73.9); Platelet Count 118 T/CUMM (130-400); Red Cell Distribution Width 18.1 % (9.3-17.3)
[2019-09-30 07:18] LABS: White Blood Count 40.3 T/CUMM (4-12)
[2019-09-30] MEDS: DORNASE ALFA 2.5 MG/2.5 ML VIAL RESP TX SCH ×2 (07:27→19:20)
[2019-09-30] MEDS: BUDESONIDE 0.25 MG/2 ML NEB RESP TX SCH ×2 (07:27→19:20)
[2019-09-30] MEDS: ARFORMOTEROL 15 MCG/2 ML NEB RESP TX SCH ×2 (07:27→19:20)
[2019-09-30 07:34] LABS: Calcium 9.4 MG/DL (8.5-10.1); Osmolality,Calculated 265.8 MOS/KG (273-304)
[2019-09-30 07:40] LABS: Band Neutrophils 5 % (0-10); Lymphocytes 14 % (20-55); Nucleated Red Blood Cells 1 (0-5); Segmented Neutrophils 72 % (50-85); Total Cells Counted 100
[2019-09-30 07:41] LABS: Platelet Estimate Adequate; Smudge Cells Few
[2019-09-30 07:42] LABS: Anisocytosis 2+; Basophilic Stippling Slight; Polychromasia Slight
[2019-09-30] MEDS: SELENIUM 200 MCG TABLET PO SCH (10:49)
[2019-09-30] MEDS: OXYBUTYNIN XL 10 MG TABLET PO SCH (10:49)
[2019-09-30] MEDS: ASPIRIN CHEW 81 MG TABLET PO SCH (10:50)
[2019-09-30] MEDS: FAMOTIDINE 20 MG TABLET PO SCH (10:50)
[2019-09-30] MEDS: LACTOBACILLUS ACIDOPHILUS/BULGARICUS CAPLET PO SCH (10:50)
[2019-09-30] MEDS: MAGNESIUM OXIDE 400 MG TABLET PO SCH ×2 (10:50→21:42)
[2019-09-30] MEDS: PANTOPRAZOLE 40 MG TABLET PO SCH (10:50)
[2019-09-30] MEDS: MULTIVITAMIN (CENTRUM) TABLET PO SCH (10:50)
[2019-09-30] MEDS: CHOLECALCIFEROL 5,000 UNIT TABLET PO SCH (10:50)
[2019-09-30] MEDS: ASCORBIC ACID 500 MG TABLET PO SCH ×2 (10:50→21:42)
[2019-09-30] MEDS: URSODIOL 300 MG CAPSULE PO SCH ×2 (10:50→21:43)
[2019-09-30] MEDS: metOLazone 5 MG TABLET PO SCH (10:51)
[2019-09-30] MEDS: INSULIN GLARGINE 100 UNIT/ML SUBCUT SCH (10:51)
[2019-09-30] MEDS: METOCLOPRAMIDE 5 MG TABLET PO SCH ×4 (10:51→21:43)
[2019-09-30] MEDS: POLYETHYLENE GLYCOL POWDER 17 GM PACK PO SCH ×4 (10:51→21:51)
[2019-09-30] MEDS: NYSTATIN 500,000 UNIT/5 ML UDCUP SWISH/SWAL SCH ×4 (10:51→21:41)
[2019-09-30] MEDS: methylPREDNISolone SOD SUC 40 MG/1 ML VIAL IV SCH (10:52)
[2019-09-30] MEDS: DESITIN 4OZ/NYSTATIN 15 GRAM MIXTURE PASTE TOP SCH ×2 (10:52→21:44)
[2019-09-30] MEDS: LEVOFLOXACIN INJ 500 MG in PREMIX 1 EACH IV SCH (10:59)
[2019-09-30] MEDS: INSULIN LISPRO 100 UNIT/ML SUBCUT SCH ×4 (11:00→21:41)
[2019-09-30] MEDS ORDERED: INSULIN GLARGINE 100 UNIT/ML SUBCUT SCH (15:59)
[2019-09-30] MEDS: ENOXAPARIN 30 MG/0.3 ML SYRINGE SUBCUT SCH (21:42)
[2019-09-30] MEDS: SIMVASTATIN 40 MG TABLET PO SCH (21:43)
[2019-09-30] MEDS: MONTELUKAST 10 MG TABLET PO SCH (21:43)
[2019-09-30] MEDS: SPIRONOLACTONE 25 MG TABLET PO SCH (21:43)
[2019-10-01 06:04] LABS: Basophils # 0.1 10*3/uL (0.0-0.2); Basophils % 0.2 % (0.0-0.8); Eosinophils % 0.1 % (0.00-10.9); Hematocrit 30.2 VOL% (35.7-47.0); Hemoglobin 9.9 GM/DL (12.0-16.0); Immature Granulocytes % 12.4 %; Immature Granulocytes Absolute 4.89 #; Lymphocytes # 1.4 10*3/uL (1.4-4.0); Lymphocytes % 3.6 % (21.3-54.2); Mean Corpuscular HGB Conc 32.8 GM/DL (32-36); Mean Corpuscular Volume 83.7 FL (87-102); Mean Platelet Volume 12.5 FL (9.6-12.0); Monocytes % 8.7 % (1.7-12.7); NRBC # 0.07 10*3/uL; Platelet Count 109 T/CUMM (130-400); Red Blood Count 3.61 MC/CUMM (3.8-5.5); Red Cell Distribution Width 18.1 % (9.3-17.3); White Blood Count 39.3 T/CUMM (4-12)
[2019-10-01 06:27] LABS: Band Neutrophils 2 % (0-10); Lymphocytes 9 % (20-55); Segmented Neutrophils 83 % (50-85); Total Cells Counted 100
[2019-10-01 06:28] LABS: Anisocytosis 1+; Hypochromasia 1+; Microcytosis 1+
[2019-10-01 06:29] LABS: Ovalocytes Few; Platelet Estimate Decreased; Polychromasia Slight
[2019-10-01 06:33] LABS: Calcium 9.7 MG/DL (8.5-10.1); Osmolality,Calculated 276.5 MOS/KG (273-304)
[2019-10-01] MEDS: DORNASE ALFA 2.5 MG/2.5 ML VIAL RESP TX SCH (07:08)
[2019-10-01] MEDS: BUDESONIDE 0.25 MG/2 ML NEB RESP TX SCH (07:08)
[2019-10-01] MEDS: ARFORMOTEROL 15 MCG/2 ML NEB RESP TX SCH (07:09)
[2019-10-01] MEDS: ALBUTEROL/IPRATROPIUM 3 ML NEB RESP TX SCH ×2 (07:09→13:05)
[2019-10-01] MEDS: METOCLOPRAMIDE 5 MG TABLET PO SCH ×2 (08:44→13:59)
[2019-10-01] MEDS: ASPIRIN CHEW 81 MG TABLET PO SCH (08:44)
[2019-10-01] MEDS: FAMOTIDINE 20 MG TABLET PO SCH (08:45)
[2019-10-01] MEDS: MAGNESIUM OXIDE 400 MG TABLET PO SCH (08:45)
[2019-10-01] MEDS: LACTOBACILLUS ACIDOPHILUS/BULGARICUS CAPLET PO SCH (08:45)
[2019-10-01] MEDS: OXYBUTYNIN XL 10 MG TABLET PO SCH (08:45)
[2019-10-01] MEDS: SELENIUM 200 MCG TABLET PO SCH (08:45)
[2019-10-01] MEDS: URSODIOL 300 MG CAPSULE PO SCH (08:46)
[2019-10-01] MEDS: CHOLECALCIFEROL 5,000 UNIT TABLET PO SCH (08:46)
[2019-10-01] MEDS: PANTOPRAZOLE 40 MG TABLET PO SCH (08:46)
[2019-10-01] MEDS: metOLazone 5 MG TABLET PO SCH (08:46)
[2019-10-01] MEDS: ASCORBIC ACID 500 MG TABLET PO SCH (08:46)
[2019-10-01] MEDS: methylPREDNISolone SOD SUC 40 MG/1 ML VIAL IV SCH (08:47)
[2019-10-01] MEDS: MULTIVITAMIN (CENTRUM) TABLET PO SCH (08:47)
[2019-10-01] MEDS: NYSTATIN 500,000 UNIT/5 ML UDCUP SWISH/SWAL SCH ×2 (08:48→14:00)
[2019-10-01] MEDS: INSULIN LISPRO 100 UNIT/ML SUBCUT SCH ×2 (08:48→12:24)
[2019-10-01] MEDS: LEVOFLOXACIN INJ 500 MG in PREMIX 1 EACH IV SCH (08:49)
[2019-10-01] MEDS: POLYETHYLENE GLYCOL POWDER 17 GM PACK PO SCH (08:49)
[2019-10-01] MEDS: DESITIN 4OZ/NYSTATIN 15 GRAM MIXTURE PASTE TOP SCH (08:49)
[2019-10-01 11:54] VITALS: BP 152/76
[2019-10-01] MEDS: ACETAMINOPHEN 325 MG TABLET PO PRN (13:59)
== END 2019-10-01 14:15 | disposition hospice, home (50) | DRG 193 ==
LOC: N.5E → SUATTDRO 12:49
PROVIDERS: ADMIT Family Medicine; ATTEND Internal Medicine